=== PATIENT | female | born 1950 | race Two or more races ===

== ENCOUNTER 2024-08-23 16:53 | Emergency (ER) | payer OTHER, SELFPAY ==
[2024-08-23 16:53] VITALS: BMI 33.9
[2024-08-23 16:59] VITALS: BP 158/74; PULSE 61; RESP 20; TEMP 36.8; O2SAT 98
--- NOTE | 2024-08-23 17:01 | XR_ITS ---
Examination: PA chest single view Technique: Upright PA chest single view Exam date and time: May 24, 2024 1741 hrs. Comparison November 29, 2021 Indications: Chest pressure today Findings: Infiltrate in the left upper lobe and right base No major cardiac enlargement Mild vascular congestion Prominent osteopenia Impression: Left upper lobe and right base pneumonia
--- NOTE | 2024-08-23 17:01 | PD.EDRME ---
Rapid Medical Screening Exam RME Arrival date/time: 08/23/24 16:53 Chief Complaint: Chest Pain Vital signs: Vital Signs Temperature 98.3 F 08/23/24 16:59 Pulse Rate 61 08/23/24 16:59 Respiratory Rate 20 08/23/24 16:59 Blood Pressure 158/74 H 08/23/24 16:59 Pulse Oximetry (%) 98 08/23/24 16:59 Oxygen Delivery Method Room Air 08/23/24 16:59 RME Narrative: Chest heaviness/pressure since this afternoon
[2024-08-23 18:07] LABS: Basophils # (Auto) 0.1 Thou/mm3 (0.0-0.2); Basophils % (Auto) 1 % (0-2.5); Eosinophils # (Auto) 0.2 Thou/mm3 (0.0-0.5); Eosinophils % (Auto) 3 % (0-10); Hematocrit 36.9 % (36.0-46.0); Hemoglobin 12.4 g/dL (12.0-16.0); Immature Granulocytes % (Auto) 0 % (0-0); Immature Granulocytes Auto 0.01 Thou/mm3 (0.00-0.00); Lymphocytes # (Auto) 2.4 Thou/mm3 (1.0-4.8); Lymphocytes % (Auto) 32 % (10-50); Mean Corpuscular HGB Conc 33.6 g/dl (31.0-37.0); Mean Corpuscular Hemoglobin 28.7 pg (25.0-35.0); Mean Corpuscular Volume 85 fL (80-100); Monocytes # (Auto) 0.6 Thou/mm3 (0.0-0.8); Monocytes % (Auto) 9 % (0-12); Neutrophils % (Auto) 55 % (37-80); Nucleated Red Blood Cell % 0 /100 WBC (0); Platelet Count 312 Thou/mm3 (140-440); RDW Standard Deviation 39.1 fL (36.4-46.3); Red Blood Count 4.32 Miln/mm3 (4.00-5.20); White Blood Count 7.3 Thou/mm3 (3.6-11.0)
[2024-08-23 18:21] LABS: Alanine Aminotransferase 100 U/L (10-49); Albumin, Serum 4.8 gm/dL (3.4-4.8); Albumin/Globulin Ratio 1.8 (1.2-2.2); Alkaline Phosphatase 199 U/L (46-116); Anion Gap 6 (7-16); Aspartate Amino Transferase 154 U/L (0-34); B-Type Natriuretic Peptide 100 pg/mL (0-100); BUN/Creatinine Ratio 11 Ratio (12-20); Bilirubin,Total 0.3 mg/dL (0.3-1.2); Blood Urea Nitrogen 23 mg/dL (9-23); Calcium 10.1 mg/dL (8.3-10.6); Calcium (Corrected) 10.1 mg/dL (8.5-10.1); Chloride 95 mMol/L (98-107); Creatinine (Component) 2.1 mg/dL (0.6-1.3); Estimated Creatinine Clearance 27.3 mL/min (>60); Globulin 2.7 gm/dL (2.3-3.5); Glucose 161 mg/dL (74-106); Osmolality,Calculated 265 (275-295); Potassium 5.2 mMol/L (3.4-5.1); Sodium 129 mMol/L (136-145); Total Protein 7.5 gm/dL (5.7-8.2); Troponin I < 0.020 ng/mL (0.0-0.045); eGFR 24 See Note
[2024-08-23 18:31] VITALS: BP 114/61; PULSE 74; RESP 17; TEMP 36.7; O2SAT 95
--- NOTE | 2024-08-23 18:38 | PC.NURSE ---
Patient presents to ED with c/o mid sternal chest pain, pressure in nature with shortness of breath at rest. Patient is alert and oriented x3, ambulatory with cane assist. Patient noted chest pain start since this am about 1130. Patient placed on laboratory monitor, pulse ox and BP. No acute distress noted. Pending MD evans.
[2024-08-23 18:42] VITALS: PULSE 78
--- NOTE | 2024-08-23 20:12 | PD.EDCHEST ---
ED Chest Pain RME/HPI General Chief Complaint: Chest Pain Stated Complaint: CHEST PAIN SINCE 1130 WITH SHORTNESS OF BREATH Time Seen by Provider: 08/23/24 19:54 Arrival date/time: 08/23/24 16:53 RME / HPI RME / HPI narrative: Chest heaviness/pressure since this afternoon DR. BUNDY MAIN ED EVALUATION: 74-year-old female patient complaining of chest pressure radiating towards her back and sensation that her heart was beating very hard. She states this started around 11 AM and continued until just past 7 PM while she was in the ED. She did not take any medications nor was she given any in the ED. She does have nitroglycerin at home however she checked her blood pressure and it was in the 120s so she felt it was too low to take the nitroglycerin. She had similar symptoms a week ago that also resolved on their own after some time. However this episode lasted much longer so she came in. She sees Dr. Donovan, cardiology. Associated mild nausea, no shortness of breath. Related Data Home Medications ?Medication ?Instructions ?Recorded ?Confirmed mirabegron 50 mg tablet,extended 50 mg PO QDAY BLADDER CONTROL ##0 05/12/15 08/09/23 release 24 hr (Myrbetriq) simvastatin 20 mg tablet (Zocor) 20 mg PO QDAY High Cholesterol #0 05/12/15 08/09/23 tabs duloxetine 60 mg capsule,delayed 60 mg PO BID 11/26/17 08/09/23 release losartan 100 1 tab PO QDAY 11/26/17 08/09/23 mg-hydrochlorothiazide 12.5 mg tablet amlodipine 2.5 mg tablet 5 mg PO QDAY 08/09/23 08/09/23 aripiprazole 2 mg tablet 2 mg PO QDAY 08/09/23 08/09/23 carvedilol 12.5 mg tablet 12.5 mg PO BID 08/09/23 08/09/23 clopidogrel 75 mg tablet 75 mg PO QDAY 08/09/23 08/09/23 glipizide 5 mg tablet 5 mg PO BID 08/09/23 08/09/23 hydroxyzine HCl 25 mg tablet 25 mg PO HS PRN Anxiety 08/09/23 08/09/23 insulin glargine 100 unit/mL (3 20 unit subcut HS 08/09/23 08/09/23 mL) subcutaneous pen (Lantus Solostar U-100 Insulin) levothyroxine 175 mcg tablet 175 mcg PO QDAY 08/09/23 08/09/23 pantoprazole 40 mg tablet,delayed 40 mg PO QDAY 08/09/23 08/09/23 release Allergies Allergy/AdvReac Type Severity Reaction Status Date / Time aspirin Allergy Severe HIVES, Verified 08/23/24 16:55 SWELLING Review of Systems Review of Systems Systems Reviewed: All systems reviewed, normal except as documented Narrative Review of Systems: GEN: No fever, no chills, no weight loss EYES: No discharge, no visual changes, no pain HEENT: No ear pain, no congestion, no sore throat PULM: No shortness of breath, no cough, no congestion CV: + chest pressure, no dyspnea on exertion, no palpitations GI: + mild nausea, no vomiting, no diarrhea, no pain, no constipation : No frequency, no urgency and no dysuria MUSC/SKEL: No joint pain, + back pain SKIN: No rash PSYCH: No hallucinations, no depression HEME/LYMPH: No easy bleeding or bruising tendencies NEURO: No weakness, no headache Past Medical History Past Medical History NEUROLOGIC: Positive Neurological Disorders, Dementia, Migraine and Head Trauma; Negative Seizures CARDIAC: Positive Cardiac Disorders, Atherosclerotic Heart Disease, Hypercholesterolemia and Hypertension; Negative Congestive Heart Failure RESPIRATORY: Positive Asthma; Negative Chronic Obstructive Pulmonary Disease (COPD) GASTROINTESTINAL: Positive Gastrointestinal Disorders and Gall Bladder Disease; Negative Hepatitis or Colorectal Cancer GENITOURINARY: Positive Genitourinary Disorders; Negative Renal Disease REPRODUCTIVE: Positive Previous Pregnancies; Negative Breast Cancer, Endometriosis, Pelvic Inflammatory Disease or Uterine Prolapse MUSCULOSKELETAL: Positive Musculoskeletal Disorders, Arthritis, Scoliosis, Carpal Tunnel Syndrome (Bilateral hands), Fibromyalgia and Degenerative Joint Disease; Negative Bone Cancer ENT: Positive Cataracts and Head Trauma ENDOCRINE: Positive Endocrine Disorders, Diabetes Mellitus Type 2, Hyperthyroidism and Hypothyroidism; Negative Diabetes Mellitus Type 1 or Graves' Disease HEMATOLOGIC: Negative Blood Disorders, Anemia or Clotting Problems PSYCHO/SOCIAL: Positive Depression OTHER HISTORY: Positive Shingles, Chicken Pox, Measles and Mumps; Negative Hospitalization, Autoimmune Disease, Down Syndrome, Developmental Delay, Falls, Blood Transfusions, Blood Transfusion Reaction, Anesthesia Reactions, Organ Transplant, Chemotherapy, Radiation Therapy, Hyperbaric Therapy, MRSA, VRSA, Vancomycin-Resistant Enterococci, Clostridium Difficile, Cancer, Breast Cancer, Cervical Cancer, Colorectal Cancer, Lung Cancer or Ovarian Cancer Family History FAMILY HISTORY: Positive Family Psychiatric Problems, Family Respiratory Disorders, Family Cardiac Disorders and Family Cancer; Negative Family Gastrointestinal Problems, Family Surgery or Family Anesthesia Reaction Surgical History SURGICAL: Positive Cardiac Surgery, Angiogram, Endocrine Surgery, Thyroidectomy (Complete), Abdominal Surgery, Joint Replacement and Tubal Ligation; Negative Ear Surgery, Neurologic Surgery, Brain Shunt or Organ Transplant Social History SMOKING STATUS: Never smoker SUBSTANCE USE: does not use ED Exam Narrative Physical exam: GENERAL APPEARANCE: alert and oriented x 4, well-developed, well-nourished, no acute distress VITALS: All vitals were reviewed and the pulse ox is 98% on room air, which is normal according to my interpretation. HEENT: Normocephalic, atraumatic; pupils equal, round, reactive to light; EOMI; mucous membranes pink, moist; oropharynx clear NECK: Supple LUNGS: CTABL; no wheezes, no rales, no rhonchi HEART: Regular rate, regular rhythm; normal S1, S2; no murmurs ABDOMEN: non distended; normal BS; soft, no tenderness, no guarding, no rebound; no masses, no organomegaly, no hernia BACK: no CVA tenderness EXTREMITIES: atraumatic; no edema NEUROLOGIC: awake; alert and oriented x4; cranial nerves II-XII grossly intact; no focal sensory or motor deficits PSYCHIATRIC: appropriate mood and affect SKIN: warm, dry, normal color; no rashes Course Course Course Narrative: Discussed consideration of Holter monitor. Patient states she has had this done twice in the past. Quality Measures none Orders Category Date Time Status EKG (ED ONLY) *Do not use* NOW Care 08/23/24 16:56 Completed CXR [XR chest 1V] Stat Exams 08/23/24 17:01 Completed EKG (ED Only) Stat Exams 08/23/24 16:56 Ordered BNP [B-Type Natriuretic Peptide] Stat Lab 08/23/24 17:39 Completed CBC Stat Lab 08/23/24 17:39 Completed CMP [Comprehensive Metabolic Panel] Stat Lab 08/23/24 17:39 Completed Troponin I Stat Lab 08/23/24 17:39 Completed Troponin I Stat Lab 08/23/24 21:33 Completed Calcium Gluconate 10% Inj Med 08/23/24 19:56 Discontinued 1 gm IV X1 ONE Sod Polystyrene Sulfon Susp [Kayexalate Susp] Med 08/23/24 19:56 Discontinued 30 gm PO X1 ONE Sodium Chloride 0.9% 1000 ml [Ns] 1,000 ml Med 08/23/24 19:56 Discontinued IV 999 mls/hr Reevaluation(s) Reevaluation #1: Patient remains clinically stable throughout the emergency department visit. Re-assessment at the time of disposition demonstrates that the patient is in no acute distress. We reviewed all the results, analysis, and treatment plans. Patient is amenable to discharge. Strict return precautions were outlined. Patient was discharged in stable condition. Time: 22:30 Vital Signs Vital signs: Vital Signs Temperature 98.3 F 08/23/24 16:59 Pulse Rate 61 08/23/24 16:59 Respiratory Rate 20 08/23/24 16:59 Blood Pressure 158/74 H 08/23/24 16:59 Pulse Oximetry (%) 98 08/23/24 16:59 Oxygen Delivery Method Room Air 08/23/24 16:59 Chest Pain MDM Narrative MDM Narrative:: Marietta Hogan am scribing for and in the presence of Dr. Bundy. Patient data External records reviewed:: [facility] previous records (Reviewed last ED visit dated 04/09/23, discharged with the following: Asthma with exacerbation.) Clinical information provided by:: patient Social determinants that could affect healthcare access:: none Patient has the following chronic illnesses:: Chronic hypertension, history of diabetes mellitus, history of hyperlipidemia, history of cardiac dysrhythmia, history of hypothyroidism, history of angina pectoris and previous cardiac catheterization, coronary angiography done on 06/27/2020 showed mild coronary artery disease with 20% to 30% stenosis of the left anterior descending coronary artery as well as right coronary artery. How is presenting disease/condition affected by chronic disease/condition?: exacerbated by Evaluation data The following diagnostics were reviewed and interpreted by me:: lab results, radiology exam(s) and EKG tracing(s) Lab and/or radiology exams considered but not ordered:: none Interpretation Summary: Procedure(s): XR chest 1V Accession Number(s): [id number] cc: Marine Astudillo NP; Sinceer Grey MD; Sergey Callaway PA-C~ Examination: PA chest single view Technique: Upright PA chest single view Exam date and time: May 24, 2024 1741 hrs. Comparison November 29, 2021 Indications: Chest pressure today Findings: Infiltrate in the left upper lobe and right base No major cardiac enlargement Mild vascular congestion Prominent osteopenia Impression: Left upper lobe and right base pneumonia Dictated By: Sincere Grey MD Medications / Prescriptions Medications or Prescriptions considered but not ordered:: none Medication administrations:: Medication Administration History Discontinued Medications Calcium Gluconate (Calcium Gluconate 10% Inj 1 Gm/10 Ml Vial) 1 gm IV X1 ONE Stop: 08/23/24 19:57 Last Admin: 08/23/24 20:41 Dose: 1 gm Documented By: JADEN Sodium Chloride (Ns) 1,000 mls @ 999 mls/hr IV .Q1H1M ONE Stop: 08/23/24 20:56 Last Infusion: 08/23/24 22:09 Dose: Infused Documented By: Admin: 08/23/24 20:41 Dose: 999 mls/hr Documented By: JADEN Sodium Polystyrene Sulfonate (Sod Polystyrene Sulfon Susp 15 Gm/60 Ml Btl) 30 gm PO X1 ONE Stop: 08/23/24 19:57 Last Admin: 08/23/24 20:41 Dose: 30 gm Documented By: JADEN see above Consultations Consultation(s) initiated? (list below): No Diagnosis Chest Pain Differential Diagnosis: pneumothorax, atypical chest pain, costochondritis, chest pain and other (pneumonia, PE) Most likely diagnosis given after review of the tests above:: Hyperkalemia Hyponatremia Chest pressure Admission Indicated Admission indicated?: not indicated Admission Request Was there a request for admission?: No Disposition Plan Disposition Plan: Discharge Discharge Attestation Discharge Attestation: The patient and all family members were given an opportunity to ask questions and understood the discharge instructions. Discharge instructions specifically effects, indications for sooner follow up or return to the emergency department, and the expected course of current diagnosis. Patient condition: Stable Discharge Plan Plan Patient Disposition: HOME (Self Care) Prescriptions/Referrals Prescriptions/Med Rec: No Action simvastatin [Zocor] 20 MG tablet 20 mg PO QDAY Qty: 0 Myrbetriq 50 MG tablet extended release 24 hr 50 mg PO QDAY Qty: 0 duloxetine 60 mg Capsule,Delayed Release(Dr/Ec) 60 mg PO BID losartan-hydrochlorothiazide 100-12.5 mg Tablet 1 tab PO QDAY levothyroxine 175 mcg tablet 175 mcg PO QDAY carvedilol 12.5 mg tablet 12.5 mg PO BID amlodipine 2.5 mg tablet 5 mg PO QDAY clopidogrel 75 mg tablet 75 mg PO QDAY pantoprazole 40 mg tablet,delayed release (DR/EC) 40 mg PO QDAY hydroxyzine HCl 25 mg tablet 25 mg PO HS PRN (Reason: Anxiety) Patient Comments: TAKE 1 TABLET BY MOUTH AT BEDTIME NEEDED FOR 90 DAYS glipizide 5 mg tablet 5 mg PO BID Patient Comments: TAKE 1 TABLET BY MOUTH TWICE A DAY aripiprazole 2 mg tablet 2 mg PO QDAY insulin glargine [Lantus Solostar U-100 Insulin] 100 unit/mL (3 mL) insulin pen 20 unit SUBCUT HS Referrals: Marine Astudillo, [employer] ACCOUNT DIRECTOR [Primary Care Provider] - In 1 week Problem List Clinical Impression: Hyperkalemia, Hyponatremia, Chest pressure Patient/Caregiver Discharge Instructions Education Materials: Hyperkalemia Dc, Hyponatremia Dc, ED Chest Pain, Uncertain Cause Print Language: [place] Stand Alone Forms: [employer] Award Info., Patient Portal Info Letter
[2024-08-23] MEDS: SODIUM CHLORIDE 0.9% 1000 ML 1,000 ML 999 ML IV (20:41)
[2024-08-23] MEDS: CALCIUM GLUCONATE 10% INJ 1 GM/10 ML VIAL IV (20:41)
[2024-08-23] MEDS: SOD POLYSTYRENE SULFON SUSP 15 GM/60 ML BTL 30 GM PO (20:41)
--- NOTE | 2024-08-23 21:08 | PC.NURSE ---
purwick and brief in place. assisted pt with repositioning
[2024-08-23 22:25] LABS: Troponin I < 0.020 ng/mL (0.0-0.045)
[2024-08-23 22:30] VITALS: BP 123/65; PULSE 89; RESP 19; O2SAT 98
== END 2024-08-23 22:50 | disposition home or self-care (01) ==
PROVIDERS: Physician Assistant; Emergency Provider Emergency Medicine; PCP Nurse Practitioner Family
DX: J18.9 Pneumonia, unspecified organism (principal); E87.5 Hyperkalemia; E87.1 Hypo-osmolality and hyponatremia; I44.39 Other atrioventricular block
CPT/HCPCS: 36415; 71045; 80053; 83880; 84484; 85025; 93005; 96360; 99284; J0612; J7030; A9270

== ENCOUNTER 2024-08-24 00:23 | Emergency (ER) | payer OTHER, SELFPAY ==
[2024-08-24 00:24] VITALS: BMI 33.9
[2024-08-24 00:55] VITALS: BP 204/109; BP 204/118; PULSE 109; RESP 19; TEMP 36.7; O2SAT 99
--- NOTE | 2024-08-24 00:59 | XR_ITS ---
Examination: CT abdomen and pelvis without contrast. Coronal 3-D reconstructions. Sagittal 2-D reconstructions. Date and time of exam:August 24, 2024 0112 hrs. Indications: Acute urinary retention today, unable to urinate CTDI: vol (mGy): 12.51 DLP: (mGycm): 738 Technique: Axial images of the abdomen have been obtained, 3 mm slice thickness Intravenous contrast material has not been administered. Low dose protocols were performed. One or more of the following dose reduction techniques were used; automated exposure control, adjustment of the mA and/or KV according to patient size, use of iterative reconstruction technique. Findings: No focal liver or splenic lesions Gallbladder not visualized No pancreatic mass Mild left mild to moderate right hydronephrosis Abdominal aortic calcification no aneurysmal dilatation No bowel obstruction Distended urinary bladder No pelvic mass Moderate osteopenia Moderate to advanced diffuse lumbar degenerative disc disease with severe spinal stenosis L4-L5, partly related to grade 1-2 anterolisthesis L4 on L5 Impression: Prominently distended urinary bladder with hydronephrosis as above, consider neurogenic bladder Severe spinal stenosis L4-L5, consider MRI follow-up
--- NOTE | 2024-08-24 01:00 | PD.EDRME ---
Rapid Medical Screening Exam RME Arrival date/time: 08/24/24 00:23 74-year-old female presents emergency department complaining of lower abdominal pain and acute urinary retention. Chief Complaint: Urogenital-Female Time Seen by Provider: 08/24/24 00:57 Vital signs: Vital Signs Temperature 98.0 F 08/24/24 00:55 Pulse Rate 109 H 08/24/24 00:55 Respiratory Rate 19 08/24/24 00:55 Blood Pressure 204/109 H 08/24/24 00:55 Pulse Oximetry (%) 99 08/24/24 00:55 Oxygen Delivery Method Room Air 08/24/24 00:55 Vital signs reviewed by provider: Yes
--- NOTE | 2024-08-24 02:05 | PRELIM_ITS ---
CT scan of the abdomen and pelvis without intravenous contrast (axial sections with sagittal and nigel nal reformats) August 24, 2024 0112 hours Clinical History: Acute urinary retention Comparison: CT of May 06, 2020.Findings:The lung bases are clear.The liver, pancreas, spleen and adrenals are unr emarkable on this noncontrast study.S/p cholecystectomy.No evidence of bowel obstruction. No evidenc e of appendicitis. There is no mesenteric or retroperitoneal adenopathy.Very distended urinary bladde r associated with bilateral moderate hydroureteronephrosis. No kidney or ureteral stones.There is no free fluid or free air.Degenerative changes of the imaged portions of the spine. No acute fractures. Chronic multilevel disc disease. Mild anterolisthesis of L4.S/p posterior laminectomy of L5.Spinal canal stenosis at L4-L5 measuring 0.5 cm.The uterus and ovaries are within normal limits.Vascular ca lcifications.Impression:Spinal canal stenosis at L4-L5 measuring 0.5 cm. Consider correlation with M RI to assess for cauda equina compression.Very distended urinary bladder associated with bilateral mo derate hydroureteronephrosis. Consider neurologic bladder. Report Electronically Signed By: Barber ulloa 08/24/2024 2:04:42 AM [EST]
--- NOTE | 2024-08-24 04:36 | EDNOTE_ITS ---
ED Female Urogenital RME/HPI General Chief complaint: Urogenital-Female Stated complaint: UNABLE TO URINATE Time Seen by Provider: 08/24/24 00:57 Source: patient and family Arrival date/time: 08/24/24 00:23 Mode of arrival: ambulatory Limitations: no limitations RME / HPI RME / HPI Narrative: 08/24/24 00:23 74-year-old female presents emergency department complaining of lower abdominal pain and acute urinary retention. DR BUNDY MAIN ED EVALUATION: 74-year-old female patient who presents to the emergency department via private auto complaining of lower abdominal pain and acute urinary retention. Related Data Home Medications ?Medication ?Instructions ?Recorded ?Confirmed mirabegron 50 mg tablet,extended 50 mg PO QDAY BLADDER CONTROL ##0 05/12/15 08/09/23 release 24 hr (Myrbetriq) simvastatin 20 mg tablet (Zocor) 20 mg PO QDAY High Cholesterol #0 05/12/15 08/09/23 tabs duloxetine 60 mg capsule,delayed 60 mg PO BID 11/26/17 08/09/23 release losartan 100 1 tab PO QDAY 11/26/17 08/09/23 mg-hydrochlorothiazide 12.5 mg tablet amlodipine 2.5 mg tablet 5 mg PO QDAY 08/09/23 08/09/23 aripiprazole 2 mg tablet 2 mg PO QDAY 08/09/23 08/09/23 carvedilol 12.5 mg tablet 12.5 mg PO BID 08/09/23 08/09/23 clopidogrel 75 mg tablet 75 mg PO QDAY 08/09/23 08/09/23 glipizide 5 mg tablet 5 mg PO BID 08/09/23 08/09/23 hydroxyzine HCl 25 mg tablet 25 mg PO HS PRN Anxiety 08/09/23 08/09/23 insulin glargine 100 unit/mL (3 20 unit subcut HS 08/09/23 08/09/23 mL) subcutaneous pen (Lantus Solostar U-100 Insulin) levothyroxine 175 mcg tablet 175 mcg PO QDAY 08/09/23 08/09/23 pantoprazole 40 mg tablet,delayed 40 mg PO QDAY 12/01/23 12/01/23 release Allergies Allergy/AdvReac Type Severity Reaction Status Date / Time aspirin Allergy Severe HIVES, Verified 08/23/24 16:55 SWELLING Review of Systems Review of Systems Systems Reviewed: All systems reviewed, normal except as documented Past Medical History Past Medical History NEUROLOGIC: Positive Neurological Disorders, Dementia, Migraine and Head Trauma; Negative Seizures CARDIAC: Positive Cardiac Disorders, Atherosclerotic Heart Disease, Hypercholesterolemia and Hypertension; Negative Congestive Heart Failure RESPIRATORY: Positive Asthma; Negative Chronic Obstructive Pulmonary Disease (COPD) GASTROINTESTINAL: Positive Gastrointestinal Disorders and Gall Bladder Disease; Negative Hepatitis or Colorectal Cancer GENITOURINARY: Positive Genitourinary Disorders; Negative Renal Disease REPRODUCTIVE: Positive Previous Pregnancies; Negative Breast Cancer, Endometriosis, Pelvic Inflammatory Disease or Uterine Prolapse MUSCULOSKELETAL: Positive Musculoskeletal Disorders, Arthritis, Scoliosis, Car pal Tunnel Syndrome (Bilateral hands), Fibromyalgia and Degenerative Joint Disease; Negative Bone Cancer ENT: Positive Cataracts and Head Trauma ENDOCRINE: Positive Endocrine Disorders, Diabetes Mellitus Type 2, Hyperthyroidism and Hypothyroidism; Negative Diabetes Mellitus Type 1 or Graves' Disease HEMATOLOGIC: Negative Blood Disorders, Anemia or Clotting Problems PSYCHO/SOCIAL: Positive Depression OTHER HISTORY: Positive Shingles, Chicken Pox, Measles and Mumps; Negative Hospitalization, Autoimmune Disease, Down Syndrome, Developmental Delay, Falls, Blood Transfusions, Blood Transfusion Reaction, Anesthesia Reactions, Organ Transplant, Chemotherapy, Radiation Therapy, Hyperbaric Therapy, MRSA, VRSA, Vancomycin-Resistant Enterococci, Clostridium Difficile, Cancer, Breast Cancer, Cervical Cancer, Colorectal Cancer, Lung Cancer or Ovarian Cancer Family History FAMILY HISTORY: Positive Family Psychiatric Problems, Family Respiratory Disorders, Family Cardiac Disorders and Family Cancer; Negative Family Gastrointestinal Problems, Family Surgery or Family Anesthesia Reaction Surgical History SURGICAL: Positive Cardiac Surgery, Angiogram, Endocrine Surgery, Thyroidectomy (Complete), Abdominal Surgery, Joint Replacement and Tubal Ligation; Negative Ear Surgery, Neurologic Surgery, Brain Shunt or Organ Transplant Social History SMOKING STATUS: Never smoker SUBSTANCE USE: does not use ED Exam Narrative Physical exam: GENERAL APPEARANCE: alert and oriented x 4, well-developed, well-nourished, no acute distress VITALS: All vitals were reviewed and the pulse ox is 99% on room air, which is normal according to my interpretation. HEENT: Normocephalic, atraumatic; pupils equal, round, reactive to light; EOMI; mucous membranes pink, moist; oropharynx clear NECK: Supple LUNGS: CTABL; no wheezes, no rales, no rhonchi HEART: Regular rate, regular rhythm; normal S1, S2; no murmurs ABDOMEN: non distended; normal BS; soft, no tenderness, no guarding, no rebound; no masses, no organomegaly, no hernia BACK: no CVA tenderness EXTREMITIES: atraumatic; no edema NEUROLOGIC: awake; alert and oriented x4; cranial nerves II-XII grossly intact; no focal sensory or motor deficits PSYCHIATRIC: appropriate mood and affect SKIN: warm, dry, normal color; no rashes General Limitations: Present no limitations Course Quality Measures none Orders Category Date Time Status [facility] [place] Routine Care 08/24/24 00:59 Ordered [facility] to [place] Routine Care 08/24/24 01:[address] abdomen pelvis wo con Stat Exams 08/24/24 00:59 Taken Urinalysis, C/S if Indicated Stat Lab 08/24/24 00:59 Completed Vital Signs Vital signs: Vital Signs Temperature 98.0 F 08/24/24 00:55 Pulse Rate 109 H 08/24/24 00:55 Respiratory Rate 19 08/24/24 00:55 Blood Pressure 204/109 H 08/24/24 00:55 Pulse Oximetry (%) 99 08/24/24 00:55 Oxygen Delivery Method Room Air 08/24/24 00:55 Urogenital - Female MDM Narrative MDM Narrative:: Scribe Attestation: Susan Hogan, aryan scribing for and in the presence of Dr. Bundy. Provider Notation: Although this document has been carefully reviewed, there may still be some phonetic and other typographical errors. These errors are purely grammatical due to imperfections in the software program and should not be construed in any way to compromise the substance of the patient's medical care during this visit. Patient data External records reviewed:: [facility] previous records Clinical information provided by:: patient Social determinants that could affect healthcare access:: none Patient has the following chronic illnesses:: Essential Hypertension, Hyperlipidemia, asthma, urinary incontinence s/p sling procedure, dizziness, MDD, CAD, Hypothyroidism, Asthma, and Diabetes Mellitus Type II ([id number]) How is presenting disease/condition affected by chronic disease/condition?: uneffected by Evaluation data The following diagnostics were reviewed and interpreted by me:: lab results and radiology exam(s) Lab and/or radiology exams considered but not ordered:: n/a Interpretation Summary: I personally reviewed the radiology data and agree with the radiologist's interpretation. CT scan of the abdomen and pelvis without intravenous contrast (axial sections with sagittal and coronal reformats) August 24, 2024 0112 hours Clinical History: Acute urinary retention Comparison: CT of May 06, 2020. Findings: The lung bases are clear. The liver, pancreas, spleen and adrenals are unremarkable on this noncontrast study. S/p cholecystectomy. No evidence of bowel obstruction. No evidence of appendicitis. There is no mesenteric or retroperitoneal adenopathy. Very distended urinary bladder associated with bilateral moderate hydroureteronephrosis. No kidney or ureteral stones. There is no free fluid or free air. Degenerative changes of the imaged portions of the spine. No acute fractures. Chronic multilevel disc disease. Mild anterolisthesis of L4. S/p posterior laminectomy of L5. Spinal canal stenosis at L4-L5 measuring 0.5 cm. The uterus and ovaries are within normal limits. Vascular calcifications. Impression: Spinal canal stenosis at L4-L5 measuring 0.5 cm. Consider correlation with MRI to assess for cauda equina compression. Very distended urinary bladder associated with bilateral moderate hydroureteron ephrosis. Consider neurologic bladder. Report Electronically Signed By: Barber Helton 08/24/2024 2:04:42 AM [EST] Medications / Prescriptions Medications or Prescriptions considered but not ordered:: n/a Medication administrations:: n/a Consultations Consultation(s) initiated? (list below): No Diagnosis Urogenital Female Differential Diagnosis: urinary tract infection, bacterial vaginosis, ovarian cyst and cystitis Most likely diagnosis given after review of the tests above:: Acute urinary retention Admission Indicated Admission indicated?: not indicated Admission Request Was there a request for admission?: No Disposition Plan Disposition Plan: Discharge Discharge Attestation Discharge Attestation: The patient and all family members were given an opportunity to ask questions and understood the discharge instructions. Discharge instructions specifically effects, indications for sooner follow up or return to the emergency department, and the expected course of current diagnosis. Patient condition: Stable Discharge Plan Plan Patient Disposition: HOME (Self Care) Prescriptions/Referrals Prescriptions/Med Rec: No Action simvastatin [Zocor] 20 MG tablet 20 mg PO QDAY Qty: 0 Myrbetriq 50 MG tablet extended release 24 hr 50 mg PO QDAY Qty: 0 duloxetine 60 mg Capsule,Delayed Release(Dr/Ec) 60 mg PO BID losartan-hydrochlorothiazide 100-12.5 mg Tablet 1 tab PO QDAY levothyroxine 175 mcg tablet 175 mcg PO QDAY carvedilol 12.5 mg tablet 12.5 mg PO BID amlodipine 2.5 mg tablet 5 mg PO QDAY clopidogrel 75 mg tablet 75 mg PO QDAY pantoprazole 40 mg tablet,delayed release (DR/EC) 40 mg PO QDAY hydroxyzine HCl 25 mg tablet 25 mg PO HS PRN (Reason: Anxiety) Patient Comments: TAKE 1 TABLET BY MOUTH AT BEDTIME NEEDED FOR 90 DAYS glipizide 5 mg tablet 5 mg PO BID Patient Comments: TAKE 1 TABLET BY MOUTH TWICE A DAY aripiprazole 2 mg tablet 2 mg PO QDAY insulin glargine [Lantus Solostar U-100 Insulin] 100 unit/mL (3 mL) insulin pen 20 unit SUBCUT HS Referrals: Marine Astudillo, [employer]APE[employer] SALES SPECIALIST [Primary Care Provider] - In 1 week Problem List Clinical Impression: Acute urinary retention Patient/Caregiver Discharge Instructions Education Materials: ED [facility] Catheter, Care, ED Urinary Retention, Female Print Language: Indonesian Stand Alone Forms: [employer] Award Info., Patient Portal Info Letter
[2024-08-24 05:12] LABS: Bilirubin,Urine Negative (Negative); Blood,Urine 1+ (Negative); Clarity,Urine Clear (Clear/Hazy); Collection Type, Urine Clean Catch; Color,Urine Lt-Yellow (Lt Yel-Yel); Culture Indicated,Urine Not Indicated; Glucose, Urine Negative (Negative); Ketones,Urine Negative (Negative); Leukocyte Esterase,Urine Negative (Negative); Nitrite,Urine Negative (Negative); Protein,Urine Negative (Neg - Trace); RBC,Urine 5 /hpf (0-3); Specific Gravity,Urine 1.009 (1.001-1.035); Squamous Epithelial Cell,Urine < 1 /hpf (0-5); Urobilinogen,Urine Negative mg/dL (0.0-1.0); WBC,Urine 0 /hpf (0-5)
[2024-08-24 05:46] VITALS: BP 175/79; RESP 17; TEMP 36.8
== END 2024-08-24 05:45 | disposition home or self-care (01) ==
PROVIDERS: Emergency Provider Emergency Medicine; PCP Nurse Practitioner Family
DX: N13.30 Unspecified hydronephrosis (principal); N32.89 Other specified disorders of bladder; M48.061 Spinal stenosis, lumbar region without neurogenic claudication
CPT/HCPCS: 51702; 74176; 81001; 99284

== ENCOUNTER → 2024-08-27 | Outpatient (CLI) | payer OTHER, MEDICAID, SELFPAY ==
[2024-08-27 09:55] LABS: Basophils # (Auto) 0.1 Thou/mm3 (0.0-0.2); Basophils % (Auto) 1 % (0-2.5); Eosinophils # (Auto) 0.4 Thou/mm3 (0.0-0.5); Eosinophils % (Auto) 5 % (0-10); Hematocrit 36.6 % (36.0-46.0); Hemoglobin 12.2 g/dL (12.0-16.0); Immature Granulocytes % (Auto) 0 % (0-0); Immature Granulocytes Auto 0.02 Thou/mm3 (0.00-0.00); Lymphocytes # (Auto) 2.4 Thou/mm3 (1.0-4.8); Lymphocytes % (Auto) 32 % (10-50); Mean Corpuscular HGB Conc 33.3 g/dl (31.0-37.0); Mean Corpuscular Hemoglobin 28.8 pg (25.0-35.0); Mean Corpuscular Volume 86 fL (80-100); Monocytes # (Auto) 0.6 Thou/mm3 (0.0-0.8); Monocytes % (Auto) 8 % (0-12); Neutrophils % (Auto) 54 % (37-80); Nucleated Red Blood Cell % 0 /100 WBC (0); Platelet Count 324 Thou/mm3 (140-440); RDW Standard Deviation 40.3 fL (36.4-46.3); Red Blood Count 4.24 Miln/mm3 (4.00-5.20); White Blood Count 7.5 Thou/mm3 (3.6-11.0)
[2024-08-27 10:10] LABS: Alanine Aminotransferase 31 U/L (10-49); Albumin, Serum 4.4 gm/dL (3.4-4.8); Albumin/Globulin Ratio 1.6 (1.2-2.2); Alkaline Phosphatase 127 U/L (46-116); Anion Gap 9 (7-16); Aspartate Amino Transferase 20 U/L (0-34); BUN/Creatinine Ratio 24 Ratio (12-20); Bilirubin,Total 0.6 mg/dL (0.3-1.2); Blood Urea Nitrogen 19 mg/dL (9-23); Calcium 10.6 mg/dL (8.3-10.6); Calcium (Corrected) 10.6 mg/dL (8.5-10.1); Carbon Dioxide 32.4 mMol/L (20.0-31.0); Chloride 98 mMol/L (98-107); Creatinine (Component) 0.8 mg/dL (0.6-1.3); Globulin 2.7 gm/dL (2.3-3.5); Glucose 106 mg/dL (74-106); Osmolality,Calculated 279 (275-295); Potassium 3.9 mMol/L (3.4-5.1); Sodium 139 mMol/L (136-145); Total Protein 7.1 gm/dL (5.7-8.2); eGFR > 60 See Note
== END | disposition home or self-care (01) ==
LOC: COPL 08:06
PROVIDERS: PCP Family Medicine; Referring Provider Nurse Practitioner Family; Visit Provider Nurse Practitioner Family
DX: J15.9 Unspecified bacterial pneumonia (principal); E87.5 Hyperkalemia; E87.1 Hypo-osmolality and hyponatremia; R74.01 Elevation of levels of liver transaminase levels
CPT/HCPCS: 36415; 80053; 85025

== ENCOUNTER → 2025-01-13 | Outpatient (CLI) | payer OTHER, MEDICAID, SELFPAY ==
--- NOTE | 2025-01-13 08:15 | XR_ITS ---
Examination: PA lateral chest 2 views TECHNIQUE: Upright PA lateral chest 2 views Exam date and time: January 13, 2025 0841 hours INDICATIONS: Coughing several years. FINDINGS: Normal heart size The lungs are clear. Prominent osteopenia IMPRESSION: No active disease
--- NOTE | 2025-01-13 08:15 | XR_ITS ---
Examination: Cervical spine 3 views Technique one AP lateral coned AP odontoid cervical spine 3 views Exam date and time: January 13, 2025 0844 hours INDICATIONS: Neck pain 10 years. FINDINGS: Adequate alignment cervical vertebral bodies. No cervical fracture. Intact odontoid. Moderate to advanced degenerative disc disease C4-C5, C5-C6, C6-C7 IMPRESSION: Moderate to advanced degenerative disc disease C4-C5, C5-C6, C6-C7
[2025-01-13 09:52] LABS: Basophils # (Auto) 0.1 Thou/mm3 (0.0-0.2); Basophils % (Auto) 1 % (0-2.5); Eosinophils # (Auto) 0.3 Thou/mm3 (0.0-0.5); Eosinophils % (Auto) 3 % (0-10); Hematocrit 38.7 % (36.0-46.0); Hemoglobin 12.7 g/dL (12.0-16.0); Immature Granulocytes % (Auto) 0 % (0-0); Immature Granulocytes Auto 0.02 Thou/mm3 (0.00-0.00); Lymphocytes # (Auto) 2.2 Thou/mm3 (1.0-4.8); Lymphocytes % (Auto) 26 % (10-50); Mean Corpuscular HGB Conc 32.8 g/dl (31.0-37.0); Mean Corpuscular Hemoglobin 28.5 pg (25.0-35.0); Mean Corpuscular Volume 87 fL (80-100); Monocytes # (Auto) 0.7 Thou/mm3 (0.0-0.8); Monocytes % (Auto) 9 % (0-12); Neutrophils # (Auto) 5.1 Thou/mm3 (1.8-7.7); Neutrophils % (Auto) 61 % (37-80); Nucleated Red Blood Cell % 0 /100 WBC (0); Platelet Count 332 Thou/mm3 (140-440); RDW Standard Deviation 42.3 fL (36.4-46.3); Red Blood Count 4.45 Miln/mm3 (4.00-5.20); White Blood Count 8.5 Thou/mm3 (3.6-11.0)
[2025-01-13 10:00] LABS: Glucose Estimated Average 131 mg/dL (80-131); Hemoglobin A1C 6.2 % Hgb (4.8-6.0)
[2025-01-13 10:18] LABS: Carbon Dioxide 30.2 mMol/L (20.0-31.0); Chloride 99 mMol/L (98-107); Potassium 4.2 mMol/L (3.4-5.1); Sodium 138 mMol/L (136-145)
[2025-01-13 10:19] LABS: Alanine Aminotransferase 11 U/L (10-49); Albumin, Serum 4.9 gm/dL (3.4-4.8); Albumin/Globulin Ratio 1.8 (1.2-2.2); Alkaline Phosphatase 113 U/L (46-116); Anion Gap 9 (7-16); Aspartate Amino Transferase 19 U/L (0-34); BUN/Creatinine Ratio 20 Ratio (12-20); Bilirubin,Direct 0.2 mg/dL (0.0-0.3); Bilirubin,Total 0.8 mg/dL (0.3-1.2); Blood Urea Nitrogen 20 mg/dL (9-23); Calcium 9.9 mg/dL (8.3-10.6); Calcium (Corrected) 9.9 mg/dL (8.5-10.1); Cardiac Risk Estimate 2.4 RATIO (3.7-5.6); Cholesterol 180 mg/dL (132-200); Free T4 (Free Thyroxine) 1.49 ng/dL (0.89-1.76); Globulin 2.7 gm/dL (2.3-3.5); Glucose 89 mg/dL (74-106); HDL Cholesterol 74 mg/dL (40-60); LDL Cholesterol,Calculated 85 mg/dL (0-130); Osmolality,Calculated 277 (275-295); Total Protein 7.6 gm/dL (5.7-8.2); Triglycerides 103 mg/dL (30-150); eGFR 59 See Note
== END | disposition home or self-care (01) ==
LOC: CDIM 07:58 → COPL 08:57
PROVIDERS: Internal Medicine Cardiovascular Disease; PCP Family Medicine; Referring Provider Nurse Practitioner Family; Visit Provider Radiology Diagnostic Radiology
DX: M50.323 Other cervical disc degeneration at C6-C7 level (principal); J15.9 Unspecified bacterial pneumonia; Z00.00 Encounter for general adult medical examination without abnormal findings; I10 Essential (primary) hypertension; E78.5 Hyperlipidemia, unspecified; E03.9 Hypothyroidism, unspecified; R73.09 Other abnormal glucose; Z71.3 Dietary counseling and surveillance
CPT/HCPCS: 36415; 71046; 72040; 80053; 80061; 82043; 82248; 82570; 83036; 84439; 84443; 85025

== ENCOUNTER 2025-02-15 10:30 | Day surgery (SDC) | payer OTHER, MEDICAID, SELFPAY ==
[2025-02-12 14:41] VITALS: BMI 34.1
[2025-02-15] VITALS (16 sets, daily range): BP systolic 102–162; BP diastolic 52–86; PULSE 73–90; RESP 10–20; TEMP 36.6–36.8; O2SAT 90–98; BMI 32.5
[2025-02-15] MEDS: DiphenhydrAMINE INJ 50 MG/ML VIAL 25 MG IVP (11:48)
[2025-02-15] MEDS: fentaNYL CIT INJ 50 mCg/ML AMP 2ML (ASD USE ONLY) IVP (12:33)
[2025-02-15] MEDS: MIDAZOLAM INJ 1 MG/ML VIAL 2 ML (ASD USE ONLY) 2 MG IVP (12:33)
[2025-02-15] MEDS: SODIUM CHLORIDE 0.9% 500 ML 500 ML 20 ML IV (12:33)
[2025-02-15] MEDS: BENZOCAINE 20% (Hurricaine) SPRAY 1 DOSE TOP (12:36)
== END 2025-02-15 13:46 | disposition home or self-care (01) ==
PROVIDERS: PCP Nurse Practitioner Family; Referring Provider Specialist; Visit Provider Specialist
PROC: 0DBE8ZX Excision of Large Intestine, Via Natural or Artificial Opening Endoscopic, Diagnostic (ICD-10-PCS; CPT 45380; principal; 2025-02-15 11:15)
PROC: (CPT 43239; 2025-02-15 11:15)
DX: D12.3 Benign neoplasm of transverse colon (principal); D12.5 Benign neoplasm of sigmoid colon; K64.9 Unspecified hemorrhoids; K57.30 Diverticulosis of large intestine without perforation or abscess without bleeding
CPT/HCPCS: 45385; A4649; C1769; J1200; J2250; J3010; J7040; A9270

== ENCOUNTER 2025-03-08 13:34 | Emergency (ER) | payer OTHER, MEDICAID, SELFPAY ==
--- NOTE | 2025-03-08 13:40 | EKG_ITS ---
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: : 1950 Requested By: Yaneth Stovall Order Number: [id number] Reading MD: Yaneth Stovall Measurements Intervals [place] Rate: 44 P: [place]: QRS: -26 QRSD: 103 T: 63 QT: 476 QTc: 408 Interpretive Statements SUPRAVENTRICULAR BRADYCARDIA BORDERLINE LEFT AXIS DEVIATION [QRS AXIS < -20] MODERATE VOLTAGE CRITERIA FOR LVH, CONSIDER NORMAL VARIANT [MEETS CRITERIA IN ONE OF: R(aVL), S(V1), R(V5), R(V5/V6)+S(V1)] ABNORMAL RHYTHM ECG Compared to ECG 11/25/2021 11:56:07 Sinus rhythm no longer present Sinus arrhythmia no longer present First degree AV block no longer present Left anterior fascicular block no longer present /store/S0/[id number].pdf
[2025-03-08 13:44] VITALS: BP 148/64; PULSE 83; RESP 18; TEMP 36.8; O2SAT 95; BMI 33.7
--- NOTE | 2025-03-08 14:30 | PD.EDRME ---
Rapid Medical Screening Exam RME Arrival date/time: 03/08/25 13:34 Chief Complaint: Chest Pain Time Seen by Provider: 03/08/25 14:30 Vital signs: Vital Signs Temperature 98.3 F 03/08/25 13:44 Pulse Rate 83 03/08/25 13:44 Respiratory Rate 18 03/08/25 13:44 Blood Pressure 148/64 H 03/08/25 13:44 Pulse Oximetry (%) 95 03/08/25 13:44 Oxygen Delivery Method Room Air 03/08/25 13:44 Pulse ox room air 95% Vital signs reviewed by provider: Yes RME Narrative: Patient complains of chest pain with shortness of breath and a sensation of a vice sitting on her chest. Began 1 week ago.
--- NOTE | 2025-03-08 14:32 | XR_ITS ---
Examination: PA lateral chest 2 views TECHNIQUE: Upright PA lateral chest 2 views Date and time: March 08, 2025 1441 hours Comparison January 13, 2025 INDICATIONS: Chest pain post endoscopy one week ago. FINDINGS: Accentuation bronchovascular markings. Normal heart size Prominent osteopenia IMPRESSION: Bronchitis pattern
[2025-03-08 15:07] LABS: Basophils # (Auto) 0.1 Thou/mm3 (0.0-0.2); Basophils % (Auto) 1 % (0-2.5); Eosinophils # (Auto) 0.4 Thou/mm3 (0.0-0.5); Eosinophils % (Auto) 4 % (0-10); Hematocrit 35.5 % (36.0-46.0); Hemoglobin 12.0 g/dL (12.0-16.0); Immature Granulocytes Auto 0.03 Thou/mm3 (0.00-0.00); Lymphocytes # (Auto) 3.5 Thou/mm3 (1.0-4.8); Lymphocytes % (Auto) 33 % (10-50); Mean Corpuscular HGB Conc 33.8 g/dl (31.0-37.0); Mean Corpuscular Hemoglobin 28.9 pg (25.0-35.0); Mean Corpuscular Volume 86 fL (80-100); Monocytes # (Auto) 1.1 Thou/mm3 (0.0-0.8); Monocytes % (Auto) 10 % (0-12); Neutrophils # (Auto) 5.4 Thou/mm3 (1.8-7.7); Neutrophils % (Auto) 51 % (37-80); Nucleated Red Blood Cell # 0.00 Thou/mm3 (0.00-0.00); Nucleated Red Blood Cell % 0 /100 WBC (0); Platelet Count 289 Thou/mm3 (140-440); RDW Standard Deviation 44.6 fL (36.4-46.3); Red Blood Count 4.15 Miln/mm3 (4.00-5.20); White Blood Count 10.6 Thou/mm3 (3.6-11.0)
[2025-03-08 15:22] LABS: INR 1.0 (0.9-1.3); Partial Thromboplastin Time 30.2 Seconds (22.0-36.0); Prothrombin Time 11.1 Seconds (9.0-12.2)
[2025-03-08 15:24] LABS: B-Type Natriuretic Peptide 755 pg/mL (0-100)
[2025-03-08 15:25] LABS: Alanine Aminotransferase 18 U/L (10-49); Albumin, Serum 4.6 gm/dL (3.4-4.8); Albumin/Globulin Ratio 1.8 (1.2-2.2); Alkaline Phosphatase 124 U/L (46-116); Anion Gap 7 (7-16); Aspartate Amino Transferase 22 U/L (0-34); BUN/Creatinine Ratio 18 Ratio (12-20); Bilirubin,Total 0.4 mg/dL (0.3-1.2); Blood Urea Nitrogen 27 mg/dL (9-23); Calcium 9.9 mg/dL (8.3-10.6); Calcium (Corrected) 9.9 mg/dL (8.5-10.1); Carbon Dioxide 27.9 mMol/L (20.0-31.0); Chloride 100 mMol/L (98-107); Creatinine (Component) 1.5 mg/dL (0.6-1.3); Estimated Creatinine Clearance 36.9 mL/min (>60); Globulin 2.6 gm/dL (2.3-3.5); Glucose 94 mg/dL (74-106); LDH (Lactate Dehydrogenase) 192 U/L (120-246); Magnesium 2.1 mg/dL (1.6-2.6); Osmolality,Calculated 275 (275-295); Potassium 4.9 mMol/L (3.4-5.1); Sodium 135 mMol/L (136-145); Total Protein 7.2 gm/dL (5.7-8.2); Troponin I < 0.020 ng/mL (0.0-0.045); eGFR 36 See Note
[2025-03-08 20:08] LABS: Collection Type, Urine Clean Catch
[2025-03-08 20:18] LABS: Amphetamine/Methamp Scrn,U Negative (Negative); Barbiturate Screen,Urine Negative (Negative); Benzodiazepines Screen,Urine Negative (Negative); Benzoylecgonine Screen, Ur Negative (Negative); Fentanyl Screen,Urine Negative (Negative); Opiate Screen,Urine Negative (Negative); THC Screen,Urine Negative (Negative)
[2025-03-08 20:24] LABS: Troponin I < 0.020 ng/mL (0.0-0.045)
[2025-03-08 20:25] LABS: Amorphous Crystals,Urine Present (Absent); Bacteria,Urine 3+; Bilirubin,Urine Negative (Negative); Blood,Urine Negative (Negative); Clarity,Urine Clear (Clear/Hazy); Color,Urine Lt-Yellow (Lt Yel-Yel); Glucose, Urine Negative (Negative); Hyaline Casts,Urine < 1 /hpf (0-1); Ketones,Urine Negative (Negative); Leukocyte Esterase,Urine Negative (Negative); Nitrite,Urine Positive (Negative); PH,Urine 6.5 (5.0-7.0); Protein,Urine Negative (Neg - Trace); RBC,Urine 1 /hpf (0-3); Specific Gravity,Urine 1.009 (1.001-1.035); Squamous Epithelial Cell,Urine 1 /hpf (0-5); Urobilinogen,Urine Negative mg/dL (0.0-1.0); WBC,Urine < 1 /hpf (0-5)
--- NOTE | 2025-03-08 21:10 | PD.EDCHEST ---
ED Chest Pain RME/HPI General Chief Complaint: Chest Pain Stated Complaint: Chest pain X 2 days, SOB X 2 days Time Seen by Provider: 03/08/25 14:30 Arrival date/time: 03/08/25 13:34 RME / HPI RME / HPI narrative: Patient complains of chest pain with shortness of breath and a sensation of a vice sitting on her chest. Began [address] Dias?s Main ED Evaluation: 74yo female with a history of dementia, DM, HTN, GERD presents to the ED for a chief complaint of intermittent chest pain x 1 week. No radiation or migration. Patient states she had an endoscopy and colonoscopy last week and has since developed intermittent chest pain. Patient reports associated dizziness, unsteadiness, and BLE swelling for the last few days, reporting her symptoms have not resolved, so she came in for evaluation. Patient denies any N/V, UTI symptoms or any other associated symptoms. She is a former tobacco smoker. Customer Acquisition Specialist is Dr. Donovan. Related Data Home Medications ?Medication ?Instructions ?Recorded ?Confirmed mirabegron 50 mg tablet,extended 50 mg PO QDAY BLADDER CONTROL ##0 05/12/15 02/15/25 release 24 hr (Myrbetriq) simvastatin 20 mg tablet (Zocor) 20 mg PO QDAY High Cholesterol #0 05/12/15 02/15/25 tabs duloxetine 60 mg capsule,delayed 60 mg PO BID 11/26/17 02/15/25 release losartan 100 1 tab PO QDAY 11/26/17 02/15/25 mg-hydrochlorothiazide 12.5 mg tablet amlodipine 2.5 mg tablet 5 mg PO QDAY 08/09/23 02/15/25 aripiprazole 2 mg tablet 2 mg PO QDAY 08/09/23 02/15/25 carvedilol 12.5 mg tablet 12.5 mg PO BID 08/09/23 02/15/25 clopidogrel 75 mg tablet 75 mg PO QDAY 08/09/23 02/15/25 glipizide 5 mg tablet 5 mg PO BID 08/09/23 02/15/25 hydroxyzine HCl 25 mg tablet 25 mg PO HS PRN Anxiety 08/09/23 02/15/25 insulin glargine 100 unit/mL (3 20 unit subcut HS 08/09/23 02/15/25 mL) subcutaneous pen (Lantus Solostar U-100 Insulin) levothyroxine 175 mcg tablet 175 mcg PO QDAY 08/09/23 02/15/25 pantoprazole 40 mg tablet,delayed 40 mg PO QDAY 08/09/23 02/15/25 release Allergies Allergy/AdvReac Type Severity Reaction Status Date / Time aspirin Allergy Severe HIVES, Verified 03/08/25 13:39 SWELLING Review of Systems Review of Systems Systems Reviewed: All systems reviewed, normal except as documented Past Medical History Past Medical History NEUROLOGIC: Positive Neurological Disorders, Dementia, Migraine and Head Trauma; Negative Seizures CARDIAC: Positive Cardiac Disorders (hx of bradycardia, palpitation), Atherosclerotic Heart Disease, Hypercholesterolemia and Hypertension; Negative Congestive Heart Failure RESPIRATORY: Positive Asthma; Negative Chronic Obstructive Pulmonary Disease (COPD) GASTROINTESTINAL: Positive Gastrointestinal Disorders and Gall Bladder Disease; Negative Hepatitis or Colorectal Cancer GENITOURINARY: Positive Genitourinary Disorders (overactive bladder); Negative Renal Disease REPRODUCTIVE: Positive Previous Pregnancies; Negative Breast Cancer, Endometriosis, Pelvic Inflammatory Disease or Uterine Prolapse MUSCULOSKELETAL: Positive Musculoskeletal Disorders, Arthritis, Scoliosis, Carpal Tunnel Syndrome, Fibromyalgia and Degenerative Joint Disease; Negative Bone Cancer ENT: Positive Cataracts, Glaucoma and Head Trauma ENDOCRINE: Positive Endocrine Disorders, Diabetes Mellitus Type 2, Hyperthyroidism and Hypothyroidism; Negative Diabetes Mellitus Type 1 or Graves' Disease HEMATOLOGIC: Negative Blood Disorders, Anemia or Clotting Problems PSYCHO/SOCIAL: Positive Depression OTHER HISTORY: Positive Shingles, Chicken Pox and Measles; Negative Hospitalization, Autoimmune Disease, Down Syndrome, Developmental Delay, Falls, Blood Transfusions, Blood Transfusion Reaction, Anesthesia Reactions, Organ Transplant, Chemotherapy, Radiation Therapy, Hyperbaric Therapy, MRSA, VRSA, Vancomycin-Resistant Enterococci, Mumps, Clostridium Difficile, Cancer, Breast Cancer, Cervical Cancer, Colorectal Cancer, Lung Cancer or Ovarian Cancer Family History FAMILY HISTORY: Positive Family Psychiatric Problems, Family Respiratory Disorders, Family Cardiac Disorders and Family Cancer; Negative Family Gastrointestinal Problems, Family Surgery or Family Anesthesia Reaction Surgical History SURGICAL: Positive Cardiac Surgery, Angiogram, Endocrine Surgery, Thyroidectomy, Abdominal Surgery, Joint Replacement and Tubal Ligation; Negative Ear Surgery, Neurologic Surgery, Brain Shunt or Organ Transplant Social History SMOKING STATUS: Former smoker SUBSTANCE USE: does not use ED Exam Narrative Physical exam: GEN. APPEARANCE: The patient is alert awake oriented X-3 in no distress, lying down comfortably, does not look ill/toxic. Patient has good eye contact. Patient is cooperative. VITALS: All vitals were reviewed and the pulse ox is 95% on room air which is normal according to my interpretation. HEENT: Normocephalic, atraumatic. Pupils are equal and reactive. Oral mucosa is moist. Patent Nares NECK: Supple, nontender, no thyromegaly, no meningismus, no JVD CHEST: Symmetrical, atraumatic, and with equal expansion , Nontender on palpation no deformity and no crepitus. CARDIOVASCULAR: Heart regular rhythm no murmur or gallop rub or extra beats. LUNGS: Clear to auscultation bilaterally with symmetrical chest rise. No laboring tachypnea or wheezing. No intercostal subcostal retraction. No rales and no rhonchi. ABDOMEN: Soft, flat, nontender to palpation, no guarding or rebound tenderness. There are no abnormal masses palpated. Active and normal bowel sounds. EXTREMITIES: Nontender. Minimal edema to the BLE. No cyanosis. Resting tremor to the RUE. Patient is able to move all 4 extremities well, with full ROM and good CSM. SKIN: Warm and dry, no jaundice or rashes noted. NEURO: Patient is SHARMA x 4, Cranial nerves II through XII grossly intact. There is no focal neurologic deficits noted. GCS is 15, PNS and PAYROLL AND BENEFITS COORDINATOR appear grossly intact. PSYCHIATRIC: Patient is in normal mood and affect. Course Course Course Narrative: CXR is ordered for determining the etiology of chest pain. Quality Measures none Orders Category Date Time Status CT Screening NOW Care 03/08/25 21:[address] Screening NOW Care 03/08/25 21:[address] Screening NOW Care 03/08/25 23:55 Completed EKG (ED ONLY) *Do not use* NOW Care 03/08/25 13:40 Completed Ribeiro [Urinary Catheter] QS Care 03/09/25 04:[address] angio carotid w head w Stat Exams 03/08/25 23:[address] angio head Stat Exams 03/08/25 21:[address] head/brain wo con Stat Exams 03/08/25 21:[address] soft tissue neck chest w Stat Exams 03/08/25 21:11 Taken EKG (ED Only) Stat Exams 03/08/25 13:40 Draft XR chest 2V Stat Exams 03/08/25 14:32 Completed XR esophogram standard Stat Exams 03/08/25 23:54 Ordered B-Type Natriuretic Peptide Stat Lab 03/08/25 14:51 Completed CBC Stat Lab 03/08/25 14:51 Completed Comprehensive Metabolic Panel Stat Lab 03/08/25 14:51 Completed Drug Screen,Urine Stat Lab 03/08/25 19:37 Completed LDH (Lactate Dehydrogenase) Stat Lab 03/08/25 14:51 Completed Magnesium Stat Lab 03/08/25 14:51 Completed Partial Thromboplastin Time Stat Lab 03/08/25 14:51 Completed Prothrombin Time with INR Stat Lab 03/08/25 14:51 Completed Troponin I Stat Lab 03/08/25 14:51 Completed Troponin I Stat Lab 03/08/25 19:58 Completed Urinalysis Stat Lab 03/08/25 19:37 Completed Ringers Lactated 1000 ml [Lactated Ringers] 1,000 ml Med 03/09/25 02:14 Discontinued IV 999 mls/hr Vital Signs Vital signs: Vital Signs Temperature 98.3 F 03/08/25 13:44 Pulse Rate 83 03/08/25 13:44 Respiratory Rate 18 03/08/25 13:44 Blood Pressure 148/64 H 03/08/25 13:44 Pulse Oximetry (%) 95 03/08/25 13:44 Oxygen Delivery Method Room Air 03/08/25 13:44 Chest Pain MDM Narrative MDM Narrative:: Scribe Attestation: 03/08/25 Angie Corrales am scribing for and in the presence of Dr. Dias. Patient data External records reviewed:: [facility] previous records (Per chart review, patient was seen here on 08/24/24 for acute urinary retention.) Clinical information provided by:: patient Social determinants that could affect healthcare access:: substance use (former tobacco smoker) Patient has the following chronic illnesses:: dementia, DM, HTN, GERD How is presenting disease/condition affected by chronic disease/condition?: uneffected by Evaluation data The following diagnostics were reviewed and interpreted by me:: lab results, radiology exam(s) and EKG tracing(s) Lab and/or radiology exams considered but not ordered:: none Interpretation Summary: CBC normal, PT/INR/PTT normal, Creatinine 1.5, Troponin normal, BNP 755, UA positive for UTI, UDS negative. EKG done at 1345, sinus bradycardia, rate of 44, normal intervals, nonspecific ST-T changes, no acute ischemia, according to my interpretation. [facility] Report Signed Patient: CODY ROGERS [facility]. Record#: [id number] Birthdate: 1950 Age/Sex: 74 / F Location: [facility] Attending Dr: Ordering Physician: Beto Mijares PA-C Date of Service: 03/08/25 Procedure(s): XR chest 2V Accession Number(s): [id number] cc: Sincere Grey MD; Beto Mijares PA-C~ Examination: PA lateral chest 2 views TECHNIQUE: Upright PA lateral chest 2 views Date and time: March 08, 2025 1441 hours Comparison January 13, 2025 INDICATIONS: Chest pain post endoscopy one week ago. FINDINGS: Accentuation bronchovascular markings. Normal heart size Prominent osteopenia IMPRESSION: Bronchitis pattern Dictated By: Sincere Grey MD Signed By: <Electronically signed by Sincere Grey MD in OV> 03/08/25 1455 [facility] Preliminary Report Draft Patient: CODY ROGERS [facility]. Record#: [id number] Birthdate: 1950 Age/Sex: 74 / F Location: [facility] Attending Dr: Ordering Physician: Date of Service: Procedure(s): Accession Number(s): cc: ~ CT scan of the neck with intravenous contrast (axial sections with sagittal and coronal reformats) March 09, 2025 0041 hours Clinical History: Perforation s/p EGD Comparison: No prior study is available for comparison. Findings: The nasopharynx, oropharynx, hypopharynx, supraglottic and infraglottic larynx, vocal cords and upper trachea are unremarkable. The epiglottis and aryepiglottic folds appear unremarkable. No enhancing lesion or fluid collection is identified. The vessels of the neck are well opacified. No filling defect is seen. Subcentimeter lymph nodes are noted in bilateral jugular regions. The superficial soft tissues of the neck are unremarkable. Degenerative changes are identified in the spine. There is multilevel calcification of the ligamentum flavum. Impression: No evidence of esophageal perforation. Unremarkable CT scan of the neck. Report Electronically Signed By: Papi Jacinto 03/09/2025 2:02:39 AM [facility] Preliminary Report Draft Patient: CODY ROGERS Record#: [id number] Birthdate: 1950 Age/Sex: 74 / F Location: [facility] Attending Dr: Ordering Physician: Date of Service: Procedure(s): Accession Number(s): cc: ~ CT angiogram of the head and neck with intravenous contrast (axial sections with sagittal and coronal reformats) March 09, 2025 0041 hours Clinical History: TIA Comparison: No prior study is available for comparison. Findings: Head: The internal carotid, middle and anterior cerebral arteries are patent bilaterally. The A1 segment of the left anterior cerebral artery is hypoplastic. The intracranial vertebral arteries are patent. The vertebrobasilar junction, basilar and posterior cerebral arteries are patent. No evidence of large vessel occlusion, critical stenosis or aneurysm. There is mild atheromatous calcification of the intracranial arteries. Neck: The aortic arch to the extent visualized as well as the origins of the right brachiocephalic, left common carotid, and left subclavian arteries are patent. The common carotid arteries, internal and external carotid arteries are patent. There are calcified atheromatous plaques in the right internal carotid bulb causing 60% stenosis. There are calcified atheromatous plaques in the left internal carotid bulb causing 50% stenosis. The origins of the vertebral arteries are unremarkable. No evidence of vascular occlusion, dissection or aneurysm. The soft tissues of the neck are unremarkable. The osseous structures are unremarkable. Impression: Head: No evidence of large vessel occlusion, critical stenosis or aneurysm. Neck: No evidence of vascular occlusion, dissection or aneurysm. Calcified atheromatous plaques in the bilateral internal carotid bulbs causing moderate stenosis. Report Electronically Signed By: Papi Jacinto 03/09/2025 2:08:12 AM [EST] CT scan of the head without intravenous contrast (axial sections with sagittal and coronal reformats) March 09, 2025 at 0039 hours Clinical History: Dizzy. Comparison: No prior study is available for comparison. Findings: There is moderate white matter disease within the cerebral hemispheres which is nonspecific, but may represent chronic small vessel ischemic change. There is involutional atrophy of the cerebral hemispheres. There is no intracranial hemorrhage, extra-axial collection, mass, mass-effect or midline shift. There is good clark-white differentiation. There is no CT evidence of acute large vascular territorial infarct Ventricles are not enlarged or effaced. Basal ganglia calcifications are noted within the cerebral hemispheres. There is atherosclerotic calcification along the intracranial vertebral arteries and carotid siphons. Visualized paranasal sinuses and tympanomastoid cavities are clear. The bony calvarium is intact. Impression: No intracranial hemorrhage, mass-effect or midline shift. No CT evidence of acute large vascular territorial infarct. This report has been electronically signed by: Alberto Cornell MD. Medications / Prescriptions Medications or Prescriptions considered but not ordered:: none Medication administrations:: Medication Administration History Discontinued Medications Lactated Ringer's (Lactated Ringers) 1,000 mls @ 999 mls/hr IV .Q1H1M ONE Stop: 03/09/25 03:14 Last Admin: 03/09/25 02:22 Dose: Not Given Documented By: KATHRIN Non-Admin Reason: Cancelled by Provider see above Consultations Consultation(s) initiated? (list below): No Diagnosis Chest Pain Differential Diagnosis: other (esophageal perforation, TIA, GERD, ACS) Most likely diagnosis given after review of the tests above:: dx pending at signout Admission Indicated Admission indicated?: not indicated Admission Request Was there a request for admission?: No Disposition Plan Disposition Plan: other (specify) (Signed out to the next oncoming provider at 0600 pending XR esophogram.) Discharge Plan Prescriptions/Referrals Prescriptions/Med Rec: No Action simvastatin [Zocor] 20 MG tablet 20 mg PO QDAY Qty: 0 mirabegron [Myrbetriq] 50 MG tablet extended release 24 hr 50 mg PO QDAY Qty: 0 duloxetine 60 mg Capsule,Delayed Release(Dr/Ec) 60 mg PO BID losartan-hydrochlorothiazide 100-12.5 mg Tablet 1 tab PO QDAY levothyroxine 175 mcg tablet 175 mcg PO QDAY carvedilol 12.5 mg tablet 12.5 mg PO BID amlodipine 2.5 mg tablet 5 mg PO QDAY clopidogrel 75 mg tablet 75 mg PO QDAY pantoprazole 40 mg tablet,delayed release (DR/EC) 40 mg PO QDAY hydroxyzine HCl 25 mg tablet 25 mg PO HS PRN (Reason: Anxiety) Patient Comments: TAKE 1 TABLET BY MOUTH AT BEDTIME NEEDED FOR 90 DAYS glipizide 5 mg tablet 5 mg PO BID Patient Comments: TAKE 1 TABLET BY MOUTH TWICE A DAY aripiprazole 2 mg tablet 2 mg PO QDAY insulin glargine [Lantus Solostar U-100 Insulin] 100 unit/mL (3 mL) insulin pen 20 unit SUBCUT HS Referrals: Marine Astudillo, GAS ANALYST [Primary Care Provider] - In 1 week Problem List Clinical Impression: Epigastric abdominal pain, Chest pain Patient/Caregiver Discharge Instructions Print Language: Lithuanian
--- NOTE | 2025-03-08 21:11 | XR_ITS ---
Examination: CT soft tissue neck with intravenous contrast CT chest with intravenous contrast 2-D sagittal and coronal reconstructions Exam date and time: March 09, 2025 0041 hours INDICATIONS: Chest pain status post endoscopy 2 days ago with esophageal pain CTDI:vol (mGy) 11.4 DLP: (mGycm) 455 Technique: Multiple axial sections of the thorax soft tissue neck have been obtained. Sections have been obtained, 3 mm slice thickness. Mediastinal and lung density settings have been obtained. Intravenous contrast administered, 40 cc Isovue-300. 2-D sagittal, coronal images obtained. Low dose protocols were performed. One or more of the following dose reduction techniques were used; automated exposure control, adjustment of the mA and/or KV according to patient size, use of iterative reconstruction technique. Findings: Symmetrical nasopharynx oropharynx Heavy calcification carotid artery bifurcations axial image 33 The larynx appears normal Normal epiglottis No abnormal air density outside the wall of the esophagus is noted No paratracheal tracheobronchial or bronchopulmonary adenopathy Pulmonary artery segments are not enlarged, AP dimension ascending thoracic aorta 3.6 cm No pneumonia or pleural fluid in the hemithoraces Liver spleen is intact Distal wall of the esophagus is mildly thickened Absent gallbladder. Common bile duct 13 mm IMPRESSION: No soft tissue neck or chest mass depicted No findings of esophageal perforation Consider standard fluoroscopically guided esophagram follow-up Mild thickening of the lower wall of the esophagus, consider reflux esophagitis Common bile duct 13 mm, consider hepatobiliary sonography follow-up
--- NOTE | 2025-03-08 21:11 | XR_ITS ---
Examination: CT brain head without contrast. 2-D sagittal coronal reconstructions Date and time of exam:March 09, 2025 at 0039 hours INDICATIONS: Transient ischemic attacks dizziness episodes today CTDI: vol (mGy):49.2 DLP: (mGycm):992 Technique: Multiple CT axial sections of the brain have been obtained, 5 mm slice thickness. Contrast has not been administered. 2-D sagittal, coronal reconstructions have been obtained Low dose protocols were performed. One or more of the following dose reduction techniques were used; automated exposure control, adjustment of the mA and/or KV according to patient size, use of iterative reconstruction technique. Findings: No significant ventricular enlargement. Intra-axial or extra-axial hemorrhage density is not seen. No mass effect or midline shift Basal cisterns are not remarkable. Fourth ventricle is midline. Cranial vault intact. Impression: Negative for acute hemorrhage, mass effect or midline shift If symptoms persist, consider brain MRI follow-up, stroke protocol
[2025-03-08 22:16] VITALS: BP 153/56; PULSE 71; RESP 18; TEMP 37.2; O2SAT 94
--- NOTE | 2025-03-08 23:55 | XR_ITS ---
Examination: CTA carotids with intravenous contrast CTA brain, head with intravenous contrast. 2-D sagittal, coronal reconstructions. 3-D reconstructions. Exam date and time: March 09, 2025 0041 hours INDICATIONS: Episodes of dizziness transient ischemic attacks beginning 2 days ago CTDI: vol (mGy) 11.4 DLP: (mGycm) 455 Technique: Multiple CTA axial brain, head carotid images post intravenous contrast injection 40 cc Isovue-300. 2-D sagittal, coronal reconstructions. 3-D reconstructions, 3-D post processing including vascular maximum intensity projection images. Low dose protocols were performed. One or more of the following dose reduction techniques were used; automated exposure control, adjustment of the mA and/or KV according to patient size, use of iterative reconstruction technique. Findings: Significant calcification right carotid bifurcation, 50-70% stenosis at the bifurcation origin right internal carotid artery Moderate calcification left carotid bifurcation, 40-50% stenosis at the bifurcation origin left internal carotid artery Dominant left vertebral artery with no critical stenoses No cerebral large vessel occlusions or thromboses IMPRESSION: 50-70% stenosis origin right internal carotid artery. 40-50% stenosis origin left internal carotid artery Consider brain MRI MRA follow-up, stroke protocol, as clinically warranted
[2025-03-09 00:14] VITALS: BP 154/77; PULSE 73; RESP 16; TEMP 36.4; O2SAT 94
--- NOTE | 2025-03-09 02:03 | PRELIM_ITS ---
CT scan of the neck with intravenous contrast (axial sections with sagittal and coronal reformats) March 09, 2025 0041 hours Clinical History: Perforation s/p EGD Comparison: No prior study is available for comparison. Findings: The nasopharynx, oropharynx, hypopharynx, supraglottic and infraglottic larynx, vocal cords and upper trachea are unremarkable. The epiglottis and aryepiglottic folds appear unremarkable. No enhancing lesion or fluid collection is identified. The vessels of the neck are well opacified. No filling defect is seen. Subcentimeter lymph nodes are noted in bilateral jugular regions. The superficial soft tissues of the neck are unremarkable. Degenerative changes are identified in the spine. There is multilevel calcification of the ligamentum flavum. Impression: No evidence of esophageal perforation. Unremarkable CT scan of the neck. Report Electronically Signed By: Papi Jacinto 03/09/2025 2:02:39 AM [EST]
--- NOTE | 2025-03-09 02:08 | PRELIM_ITS ---
CT angiogram of the head and neck with intravenous contrast (axial sections with sagittal and coronal reformats) March 09, 2025 0041 hours Clinical History: TIA Comparison: No prior study is available for comparison. Findings: Head: The internal carotid, middle and anterior cerebral arteries are patent bilaterally. The A1 segment of the left anterior cerebral artery is hypoplastic. The intracranial vertebral arteries are patent. The vertebrobasilar junction, basilar and posterior cerebral arteries are patent. No evidence of large vessel occlusion, critical stenosis or aneurysm. There is mild atheromatous calcification of the intracranial arteries. Neck: The aortic arch to the extent visualized as well as the origins of the right brachiocephalic, left common carotid, and left subclavian arteries are patent. The common carotid arteries, internal and external carotid arteries are patent. There are calcified atheromatous plaques in the right internal carotid bulb causing 60% stenosis. There are calcified atheromatous plaques in the left internal carotid bulb causing 50% stenosis. The origins of the vertebral arteries are unremarkable. No evidence of vascular occlusion, dissection or aneurysm. The soft tissues of the neck are unremarkable. The osseous structures are unremarkable. Impression: Head: No evidence of large vessel occlusion, critical stenosis or aneurysm. Neck: No evidence of vascular occlusion, dissection or aneurysm. Calcified atheromatous plaques in the bilateral internal carotid bulbs causing moderate stenosis. Report Electronically Signed By: Papi Jacinto 03/09/2025 2:08:12 AM [EST]
[2025-03-09 02:12] VITALS: BP 174/85; PULSE 76; RESP 14; TEMP 36.8; O2SAT 98
[2025-03-09 05:30] VITALS: BP 166/88; PULSE 81; RESP 18; TEMP 36.7; O2SAT 95
[2025-03-09 09:00] VITALS: BP 178/78; PULSE 89; RESP 16; TEMP 36.6; O2SAT 95
[2025-03-09 12:32] VITALS: BP 157/71; PULSE 85; RESP 15; TEMP 36.7; O2SAT 96
[2025-03-09] MEDS: AZITHROMYCIN 250 MG TABLET 500 MG PO (14:20)
[2025-03-09 14:31] VITALS: BP 159/70; PULSE 90; RESP 19; TEMP 36.6; O2SAT 95
--- NOTE | 2025-03-19 19:19 | PD.EDADDENDU ---
Emergency Room Addendum Addendum Narrative: 0600: Care assumed from Dr. Dias, the previous shift emergency physician. Past medical, surgical, social and family history reviewed. Vitals and home medications reviewed. Results and treatment plan discussed. I will assume the care of the patient at this time and will follow the patient, pending XR esophagram. Please refer to the emergency department record for history and examination from initial visit. Patient complains of mild cough and sore throat on my evaluation. Labs and radiology results reviewed and are unremarkble. I do not feel the patient needs an esophagram at this time. Patient is stable for discharge home for outpatient follow-up.
== END 2025-03-09 14:32 | disposition home or self-care (01) ==
PROVIDERS: Physician Assistant; Emergency Provider Emergency Medicine; PCP Nurse Practitioner Family
DX: R10.13 Epigastric pain (principal); I65.23 Occlusion and stenosis of bilateral carotid arteries; R00.1 Bradycardia, unspecified; I25.10 Atherosclerotic heart disease of native coronary artery without angina pectoris; E78.00 Pure hypercholesterolemia, unspecified; I10 Essential (primary) hypertension; Z87.891 Personal history of nicotine dependence; Z79.02 Long term (current) use of antithrombotics/antiplatelets
CPT/HCPCS: 51702; 36415; 70450; 70491; 70496; 70498; 71046; 71260; 80053; 80307; 81001; 83615; 83735; 83880; 84484; 85025; 85610; 85730; 93005; 99291; A4314; A4649; Q9967; A9270

== ENCOUNTER → 2025-04-09 | Outpatient (CLI) | payer MEDICAID, OTHER, SELFPAY ==
--- NOTE | 2025-04-09 | XR_ITS ---
EXAMINATION: Ankle, right 3 views . Technique: Ankle AP, oblique, lateral 3 views Date and time of exam: April 09, 2025 1236 hours INDICATIONS: Patient fell last week with injury to the ankle, ankle pain. FINDINGS: Old fracture at the fibular tip, please see the ankle films April 06, 2022 No ankle dislocation No acute fracture IMPRESSION: No acute fracture
--- NOTE | 2025-04-09 | XR_ITS ---
Examination:Right hip AP, lateral, AP pelvis 3 views Technique: Hip AP lateral, AP pelvis, 3 views Exam date and time:April 09, 2025 1236 hours INDICATIONS: Patient pulled week ago with injury to the right hip and right hip pain. FINDINGS: No right hip fracture or hip dislocation Moderate bilateral hip osteoarthritis Bones of the pelvis intact IMPRESSION: No acute hip or pelvic fracture.
== END | disposition home or self-care (01) ==
LOC: CDIM 11:50
PROVIDERS: PCP Nurse Practitioner Family; Referring Provider Nurse Practitioner Family; Visit Provider Nurse Practitioner Family
DX: S79.911A Unspecified injury of right hip, initial encounter (principal); S99.911A Unspecified injury of right ankle, initial encounter; X58.XXXA Exposure to other specified factors, initial encounter
CPT/HCPCS: 73502; 73610

== ENCOUNTER → 2025-05-24 | Outpatient (CLI) | payer OTHER, MEDICAID, SELFPAY ==
--- NOTE | 2025-05-24 13:00 | XR_ITS ---
Examination: Screening digital mammography, bilateral Computer aided detection 3-D breast Tomosynthesis, bilateral Date and time of exam: May 24, 2025 1329 hours Compared to mammograms dating to November 20, 2013 Indication: Screening Technique: Nonmagnified MLO, CC views of the breasts to been obtained, reconstructed from 3-D Tomosynthesis images. R2 computer aided detection program utilized for evaluation of suspicious masses and/or abnormal calcifications. 3-D Tomosynthesis images obtained. Findings: Scattered areas of fibroglandular density. Benign calcifications. No interval suspicious masses Impression: BI-RADS category II: Benign Findings. Recommend 1 year follow-up mammogram.
[2025-05-24 14:58] LABS: Thyroid Stimulating Hormone < 0.01 uIU/mL (0.55-4.78)
== END | disposition home or self-care (01) ==
LOC: CDIM 13:15 → COPL 13:41
PROVIDERS: PCP Family Medicine; Referring Provider Nurse Practitioner Family; Visit Provider Radiology Diagnostic Radiology
DX: Z12.31 Encounter for screening mammogram for malignant neoplasm of breast (principal); R92.8 Other abnormal and inconclusive findings on diagnostic imaging of breast; R92.323 Mammographic fibroglandular density, bilateral breasts; E11.9 Type 2 diabetes mellitus without complications
CPT/HCPCS: 36415; 77063; 77067; 84443

== ENCOUNTER 2025-07-16 11:32 | Emergency (ER) | payer OTHER, MEDICAID, SELFPAY ==
[2025-07-16 11:32] VITALS: BMI 34.7
[2025-07-16 11:45] VITALS: BP 166/84; PULSE 89; RESP 18; TEMP 36.6; O2SAT 99
--- NOTE | 2025-07-16 12:12 | PD.EDBACK ---
ED Back Injury Pain RME/HPI General Chief Complaint: Back Pain/Injury Stated Complaint: CHRONIC BACK PAIN Time Seen by Provider: 07/16/25 11:45 Source: patient Arrival date/time: 07/16/25 11:32 75-year-old female with a history of hypertension, type 2 diabetes, chronic back pain presents to the emergency room with a chief complaint of lower lumbar pain x 3 days Mode of arrival: ambulatory Limitations: no limitations Related Data Home Medications ?Medication ?Instructions ?Recorded ?Confirmed mirabegron 50 mg tablet,extended 50 mg PO QDAY BLADDER CONTROL ##0 05/12/15 02/15/25 release 24 hr (Myrbetriq) simvastatin 20 mg tablet (Zocor) 20 mg PO QDAY High Cholesterol #0 05/12/15 02/15/25 tabs duloxetine 60 mg capsule,delayed 60 mg PO BID 11/26/17 02/15/25 release losartan 100 1 tab PO QDAY 11/26/17 02/15/25 mg-hydrochlorothiazide 12.5 mg tablet amlodipine 2.5 mg tablet 5 mg PO QDAY 08/09/23 02/15/25 aripiprazole 2 mg tablet 2 mg PO QDAY 08/09/23 02/15/25 carvedilol 12.5 mg tablet 12.5 mg PO BID 08/09/23 02/15/25 clopidogrel 75 mg tablet 75 mg PO QDAY 08/09/23 02/15/25 glipizide 5 mg tablet 5 mg PO BID 08/09/23 02/15/25 hydroxyzine HCl 25 mg tablet 25 mg PO HS PRN Anxiety 08/09/23 02/15/25 insulin glargine 100 unit/mL (3 20 unit subcut HS 08/09/23 02/15/25 mL) subcutaneous pen (Lantus Solostar U-100 Insulin) levothyroxine 175 mcg tablet 175 mcg PO QDAY 08/09/23 02/15/25 pantoprazole 40 mg tablet,delayed 40 mg PO QDAY 08/09/23 02/15/25 release Previous Rx's ?Medication ?Instructions ?Recorded hydrocodone 5 mg-acetaminophen 325 1 tab PO BID PRN pain #6 tabs 07/16/25 mg tablet Allergies Allergy/AdvReac Type Severity Reaction Status Date / Time aspirin Allergy Severe HIVES, Verified 07/16/25 11:34 SWELLING Review of Systems Review of Systems Systems Reviewed: All systems reviewed, normal except as documented Constitutional Constitutional: Reports system reviewed and no additional complaints, except as documented, Denies fatigue, Denies fever(s), Denies headache(s) and Denies weakness Eyes Eyes: Reports system reviewed and no additional complaints, except as documented, Denies blurry vision and Denies change in vision ENT Ears, Nose, Mouth, and Throat: Reports system reviewed and no additional complaints, except as documented, Denies otalgia, Denies headache(s), Denies nasal congestion, Denies throat swelling and Denies vertigo Cardiovascular Cardiovascular: Reports system reviewed and no additional complaints, except as documented, Denies chest pain, Denies dyspnea and Denies dyspnea on exertion Respiratory Respiratory: Reports system reviewed and no additional complaints, except as documented, Denies chest congestion, Denies cough, Denies dyspnea, Denies dyspnea on exertion and Denies wheezing Gastrointestinal Gastrointestinal: Reports system reviewed and no additional complaints, except as documented, Denies abdominal pain, Denies cramping, Denies nausea and Denies vomiting Genitourinary Genitourinary: Reports system reviewed and no additional complaints, except as documented Musculoskeletal Musculoskeletal: Reports system reviewed and no additional complaints, except as documented and Reports back pain Integumentary/Breasts Skin/Breast: Reports system reviewed and no additional complaints, except as documented and Denies wounds Neurologic Neurologic: Reports system reviewed and no additional complaints, except as documented, Denies confusion, Denies headache(s), Denies lack of coordination, Denies vertigo and Denies weakness Psychiatric Psychiatric: Reports system reviewed and no additional complaints, except as documented, Denies anxiety, Denies confusion, Denies depression, Denies paranoia, Denies suicidal ideation and Denies tactile hallucinations Endocrine Endocrine: Reports system reviewed and no additional complaints, except as documented and Denies fatigue Hematologic/Lymphatic Hematologic/Lymphatic: Reports system reviewed and no additional complaints, except as documented and Denies lymphadenopathy Allergic/Immunologic Allergic/Immunologic: Reports system reviewed and no additional complaints, except as documented, Denies throat swelling, Denies urticaria and Denies wheezing Past Medical History Past Medical History NEUROLOGIC: Positive Neurological Disorders, Dementia, Migraine and Head Trauma; Negative Seizures CARDIAC: Positive Cardiac Disorders, Atherosclerotic Heart Disease, Hypercholesterolemia and Hypertension; Negative Congestive Heart Failure RESPIRATORY: Positive Asthma; Negative Chronic Obstructive Pulmonary Disease (COPD) GASTROINTESTINAL: Positive Gastrointestinal Disorders and Gall Bladder Disease; Negative Hepatitis or Colorectal Cancer GENITOURINARY: Positive Genitourinary Disorders; Negative Renal Disease REPRODUCTIVE: Positive Previous Pregnancies; Negative Breast Cancer, Endometriosis, Pelvic Inflammatory Disease or Uterine Prolapse MUSCULOSKELETAL: Positive Musculoskeletal Disorders, Arthritis, Scoliosis, Carpal Tunnel Syndrome, Fibromyalgia and Degenerative Joint Disease; Negative Bone Cancer ENT: Positive Cataracts, Glaucoma and Head Trauma ENDOCRINE: Positive Endocrine Disorders, Diabetes Mellitus Type 2, Hyperthyroidism and Hypothyroidism; Negative Diabetes Mellitus Type 1 or Graves' Disease HEMATOLOGIC: Negative Blood Disorders, Anemia, Sickle Cell Disease or Clotting Problems PSYCHO/SOCIAL: Positive Depression OTHER HISTORY: Positive Shingles, Chicken Pox and Measles; Negative Hospitalization, Autoimmune Disease, Down Syndrome, Developmental Delay, Falls, Blood Transfusions, Blood Transfusion Reaction, Anesthesia Reactions, Organ Transplant, Chemotherapy, Radiation Therapy, Hyperbaric Therapy, MRSA, VRSA, Vancomycin-Resistant Enterococci, Mumps, Clostridium Difficile, Cancer, Breast Cancer, Cervical Cancer, Colorectal Cancer, Lung Cancer or Ovarian Cancer Family History FAMILY HISTORY: Positive Family Psychiatric Problems, Family Respiratory Disorders, Family Cardiac Disorders and Family Cancer; Negative Family Gastrointestinal Problems, Family Surgery or Family Anesthesia Reaction Surgical History SURGICAL: Positive Cardiac Surgery, Angiogram, Endocrine Surgery, Thyroidectomy, Abdominal Surgery, Joint Replacement and Tubal Ligation; Negative Ear Surgery, Neurologic Surgery, Brain Shunt or Organ Transplant Social History SMOKING STATUS: Never smoker SUBSTANCE USE: does not use ED Exam General Limitations: Present no limitations General appearance: Present alert and in no apparent distress Head Head exam: Present atraumatic Eye Eye exam: Present normal appearance, PERRL and EOMI ENT ENT exam: Present normal exam, normal oropharynx and mucous membranes moist Neck Neck exam: Present normal inspection, full ROM and trachea midline Chest Chest inspection: Present normal inspection and symmetric chest wall rise Respiratory Respiratory exam: Present normal lung sounds bilaterally Cardiovascular Cardiovascular exam: Present regular rate, normal rhythm and normal heart sounds Abdominal Exam Abdominal exam: Present soft and normal bowel sounds Extremities Exam Extremities exam: Present normal inspection and full ROM Back Exam Back exam: Present normal inspection, full ROM and vertebral tenderness Back 1 view image:  1. Tenderness with palpation of lumbar spine Neurological Exam Neurological exam: Present alert, oriented X3 and CN II-XII intact Psychiatric Psychiatric exam: Present normal affect and normal mood Skin Skin exam: Present warm, dry, intact and normal color Course Quality Measures none Orders Category Date Time Status Ketorolac Inj [Toradol Inj] Med 07/16/25 11:59 Discontinued 30 mg IM X1 ONE Vital Signs Vital signs: Vital Signs Temperature 98 F 07/16/25 11:45 Pulse Rate 89 07/16/25 11:45 Respiratory Rate 18 07/16/25 11:45 Blood Pressure 166/84 H 07/16/25 11:45 Pulse Oximetry (%) 99 07/16/25 11:45 Oxygen Delivery Method Room Air 07/16/25 11:45 Back Pain / Injury MDM Narrative MDM Narrative:: 75-year-old female with a history of hypertension, type 2 diabetes, chronic back pain presents to the emergency room with a chief complaint of lower lumbar pain x 3 days Patient is hemodynamically stable and in no apparent distress Physical examination shows tenderness with palpation of the lumbar area of the patient's spine. The patient suffers from chronic lower back pain. The patient is seen by a review specialist with shoulder that is not recommended for her to have surgery as there can be more complications. The patient is also seen by pain management. Patient states she is here due to breakthrough pain. There is no new trauma or any evidence of any worsening symptoms. The patient denies any loss of bowel or bladder function. The patient denies any numbness to the lower extremities Pain medication was given with significant improvement to her symptoms Patient was discharged and educated to follow-up with primary care provider in the next 24 to 48 hours and return to the emergency room for any evidence of worsening signs or symptoms Patient data External records reviewed:: [facility] previous records Clinical information provided by:: patient Social determinants that could affect healthcare access:: none Patient has the following chronic illnesses:: Chronic back pain How is presenting disease/condition affected by chronic disease/condition?: exacerbated by Evaluation data The following diagnostics were reviewed and interpreted by me:: lab results and radiology exam(s) Lab and/or radiology exams considered but not ordered:: Labs and radiology exams considered and ordered Interpretation Summary: N/A Medications / Prescriptions Medications or Prescriptions considered but not ordered:: Medication given Medication administrations:: Medication Administration History Discontinued Medications Ketorolac Tromethamine (Ketorolac Inj 60 Mg/2 Ml Vial) 30 mg IM X1 ONE Stop: 07/16/25 12:00 Last Admin: 07/16/25 12:32 Dose: 30 mg Documented By: SETH Medication given Consultations Consultation(s) initiated? (list below): No Diagnosis Differential diagnosis back pain/injury: lumbar radiculopathy, strain of lumbar region and discitis Most likely diagnosis given after review of the tests above:: Strain of lumbar region Admission Indicated Admission indicated?: not indicated Admission Request Was there a request for admission?: No Disposition Plan Disposition Plan: Discharge Discharge Attestation Discharge Attestation: The patient and all family members were given an opportunity to ask questions and understood the discharge instructions. Discharge instructions specifically effects, indications for sooner follow up or return to the emergency department, and the expected course of current diagnosis. Patient condition: Stable Discharge Plan Plan Patient Disposition: HOME (Self Care) Discharge Disposition comment: Stable Prescriptions/Referrals Prescriptions/Med Rec: New hydrocodone-acetaminophen 5-325 mg tablet 1 tab PO BID MDD 10mg PRN (Reason: pain) Qty: 6 0RF No Action simvastatin [Zocor] 20 MG tablet 20 mg PO QDAY Qty: 0 mirabegron [Myrbetriq] 50 MG tablet extended release 24 hr 50 mg PO QDAY Qty: 0 duloxetine 60 mg Capsule,Delayed Release(Dr/Ec) 60 mg PO BID losartan-hydrochlorothiazide 100-12.5 mg Tablet 1 tab PO QDAY levothyroxine 175 mcg tablet 175 mcg PO QDAY carvedilol 12.5 mg tablet 12.5 mg PO BID amlodipine 2.5 mg tablet 5 mg PO QDAY clopidogrel 75 mg tablet 75 mg PO QDAY pantoprazole 40 mg tablet,delayed release (DR/EC) 40 mg PO QDAY hydroxyzine HCl 25 mg tablet 25 mg PO HS PRN (Reason: Anxiety) Patient Comments: TAKE 1 TABLET BY MOUTH AT BEDTIME NEEDED FOR 90 DAYS glipizide 5 mg tablet 5 mg PO BID Patient Comments: TAKE 1 TABLET BY MOUTH TWICE A DAY aripiprazole 2 mg tablet 2 mg PO QDAY insulin glargine [Lantus Solostar U-100 Insulin] 100 unit/mL (3 mL) insulin pen 20 unit SUBCUT HS Problem List Clinical Impression: Strain of lumbar region Patient/Caregiver Discharge Instructions Education Materials: ED Back Sprain/Strain Additional Instructions: Please follow-up with your review specialist in the next 24 to 48 hours Medication was sent to your pharmacy please pick it up and take it as indicated For any evidence of worsening signs or symptoms return to emergency room immediately Print Language: Prydeinig Stand Alone Forms: [employer] Info., Patient Portal Info Letter PA/HELPER/DRIVER Supervising Physician PA/HELPER/DRIVER Supervising Physician: Dr. Chi
[2025-07-16] MEDS: KETOROLAC INJ 60 MG/2 ML VIAL 30 MG IM (12:32)
== END 2025-07-16 13:14 | disposition home or self-care (01) ==
PROVIDERS: Emergency Provider Nurse Practitioner Family
DX: S39.012A Strain of muscle, fascia and tendon of lower back, initial encounter (principal); X58.XXXA Exposure to other specified factors, initial encounter; E11.9 Type 2 diabetes mellitus without complications; I10 Essential (primary) hypertension
CPT/HCPCS: 96372; 99282; J1885

== ENCOUNTER 2025-08-03 13:42 | Emergency (ER) | payer OTHER, MEDICAID, SELFPAY ==
[2025-08-03 14:08] VITALS: BP 170/78; PULSE 75; RESP 20; TEMP 36.7; O2SAT 95; BMI 32.7
--- NOTE | 2025-08-03 14:19 | XR_ITS ---
Examination: CT abdomen and pelvis without contrast. Coronal 3-D reconstructions. Sagittal 2-D reconstructions. Date and time of exam: August 03, 2025, 1517 hours, comparison August 24, 2024 INDICATIONS: Left lower abdominal pain worse the last month CTDI: vol (mGy): 12.9 DLP: (mGycm): 718 Technique: Axial images of the abdomen have been obtained, 3 mm slice thickness Intravenous contrast material has not been administered. Low dose protocols were performed. One or more of the following dose reduction techniques were used; automated exposure control, adjustment of the mA and/or KV according to patient size, use of iterative reconstruction technique. Findings: No focal liver or splenic lesions Retrocardiac gastric hernia Absent gallbladder No pancreatic mass Mild nodular thickening left adrenal gland Subcentimeter renal calculi No hydronephrosis or ureteral calculi Aortic calcification no aneurysmal dilatation Suspicious for 80% stenosis origin left common iliac artery Normal appendix No bowel obstruction Intact urinary bladder Diffuse advanced lumbar degenerative disc disease IMPRESSION: Bilateral nonobstructing renal calculi, no hydronephrosis or ureteral calculi Suspicious for 80% stenosis left common iliac artery, consider arterial Doppler ultrasound lower extremity follow-up No bowel obstruction diverticulitis or free air
[2025-08-03] MEDS: KETOROLAC INJ 60 MG/2 ML VIAL 30 MG IM (14:35)
[2025-08-03 14:45] LABS: Basophils # (Auto) 0.1 Thou/mm3 (0.0-0.2); Basophils % (Auto) 1 % (0-2.5); Eosinophils # (Auto) 0.3 Thou/mm3 (0.0-0.5); Eosinophils % (Auto) 3 % (0-10); Hematocrit 39.8 % (36.0-46.0); Hemoglobin 13.2 g/dL (12.0-16.0); Immature Granulocytes Auto 0.02 Thou/mm3 (0.00-0.00); Lymphocytes # (Auto) 1.6 Thou/mm3 (1.0-4.8); Lymphocytes % (Auto) 19 % (10-50); Mean Corpuscular HGB Conc 33.2 g/dl (31.0-37.0); Mean Corpuscular Hemoglobin 28.4 pg (25.0-35.0); Mean Corpuscular Volume 86 fL (80-100); Monocytes # (Auto) 0.6 Thou/mm3 (0.0-0.8); Monocytes % (Auto) 8 % (0-12); Neutrophils # (Auto) 5.8 Thou/mm3 (1.8-7.7); Neutrophils % (Auto) 69 % (37-80); Nucleated Red Blood Cell # 0.00 Thou/mm3 (0.00-0.00); Nucleated Red Blood Cell % 0 /100 WBC (0); Platelet Count 312 Thou/mm3 (140-440); RDW Standard Deviation 41.5 fL (36.4-46.3); Red Blood Count 4.65 Miln/mm3 (4.00-5.20); White Blood Count 8.4 Thou/mm3 (3.6-11.0)
[2025-08-03 14:57] LABS: Collection Type, Urine Clean Catch
[2025-08-03 15:07] LABS: Bacteria,Urine 3+; Bilirubin,Urine Negative (Negative); Blood,Urine Negative (Negative); Color,Urine Lt-Yellow (Lt Yel-Yel); Glucose, Urine Negative (Negative); Ketones,Urine Negative (Negative); Leukocyte Esterase,Urine Positive (Negative); Nitrite,Urine Negative (Negative); PH,Urine 5.5 (5.0-7.0); Protein,Urine Trace (Neg - Trace); RBC,Urine 5 /hpf (0-3); Specific Gravity,Urine 1.012 (1.001-1.035); Squamous Epithelial Cell,Urine 27 /hpf (0-5); Urobilinogen,Urine Negative mg/dL (0.0-1.0); WBC,Urine 237 /hpf (0-5)
[2025-08-03 15:10] LABS: Clarity,Urine Hazy (Clear/Hazy)
[2025-08-03 15:12] LABS: Alanine Aminotransferase 8 U/L (10-49); Albumin, Serum 5.0 gm/dL (3.4-4.8); Anion Gap 9 (7-16); Aspartate Amino Transferase 19 U/L (0-34); BUN/Creatinine Ratio 16 Ratio (12-20); Bilirubin,Total 0.6 mg/dL (0.3-1.2); Blood Urea Nitrogen 22 mg/dL (9-23); Calcium 9.9 mg/dL (8.3-10.6); Calcium (Corrected) 9.9 mg/dL (8.5-10.1); Carbon Dioxide 30.5 mMol/L (20.0-31.0); Chloride 100 mMol/L (98-107); Creatinine (Component) 1.4 mg/dL (0.6-1.3); Estimated Creatinine Clearance 39.7 mL/min (>60); Globulin 2.5 gm/dL (2.3-3.5); Glucose 173 mg/dL (74-106); Osmolality,Calculated 284 (275-295); Potassium 4.1 mMol/L (3.4-5.1); Sodium 139 mMol/L (136-145); Total Protein 7.5 gm/dL (5.7-8.2); eGFR 39 See Note
[2025-08-03 15:13] LABS: Albumin/Globulin Ratio 2.0 (1.2-2.2); Alkaline Phosphatase 115 U/L (46-116); Lipase 40 U/L (12-53)
--- NOTE | 2025-08-03 15:50 | PD.EDRME ---
Rapid Medical Screening Exam E Arrival date/time: 08/03/25 13:42 75-year-old female with a history of hypertension, chronic back pain, type 2 diabetes, hypothyroidism, hyperlipidemia, presents to the emergency room with a chief complaint of left CVA tenderness that radiates down to the left abdomen x 2 days I have greeted and performed a focused initial assessment of this patient. A comprehensive ED assessment and evaluation of the patient, analysis of all test results, and completion of the medical decision making process will be conducted by additional ED providers. Chief Complaint: Back Pain/Injury Time Seen by Provider: 08/03/25 14:20 Vital signs: Vital Signs Temperature 98.1 F 08/03/25 14:08 Pulse Rate 75 08/03/25 14:08 Respiratory Rate 20 08/03/25 14:08 Blood Pressure 170/78 H 08/03/25 14:08 Pulse Oximetry (%) 95 08/03/25 14:08 Oxygen Delivery Method Room Air 08/03/25 14:08 Vital signs reviewed by provider: Yes Exam: Left CVA tenderness with palpation Tenderness to the left lower quadrant of the abdomen Clinical Impression: Renal calculi/ureteral calculi/pyelonephritis/UTI/back pain
--- NOTE | 2025-08-03 16:35 | PD.EDADULT ---
ED General RME/HPI General Chief complaint: Back Pain/Injury Stated complaint: LEFT FLANK PAIN, N/V Time Seen by Provider: 08/03/25 14:20 Arrival date/time: 08/03/25 13:42 CC: Left flank pain HPI ongoing for 1 month. Patient states she was diagnosed with a UTI at the beginning of the month and given antibiotics, from her PCP, without relief. Patient states do not get me tramadol because it does not work. Patient denies fever but is complaining of intermittent urinary incontinence. Patient is complaining of nausea without vomiting no diarrhea or constipation. RME / HPI RME / HPI narrative: 08/03/25 13:42 75-year-old female with a history of hypertension, chronic back pain, type 2 diabetes, hypothyroidism, hyperlipidemia, presents to the emergency room with a chief complaint of left CVA tenderness that radiates down to the left abdomen x 2 days I have greeted and performed a focused initial assessment of this patient. A comprehensive ED assessment and evaluation of the patient, analysis of all test results, and completion of the medical decision making process will be conducted by additional ED providers. Exam: Left CVA tenderness with palpation Tenderness to the left lower quadrant of the abdomen Impression: Renal calculi/ureteral calculi/pyelonephritis/UTI/back pain Related Data Home Medications ?Medication ?Instructions ?Recorded ?Confirmed mirabegron 50 mg tablet,extended 50 mg PO QDAY BLADDER CONTROL ##0 05/12/15 02/15/25 release 24 hr (Myrbetriq) simvastatin 20 mg tablet (Zocor) 20 mg PO QDAY High Cholesterol #0 05/12/15 02/15/25 tabs duloxetine 60 mg capsule,delayed 60 mg PO BID 11/26/17 02/15/25 release losartan 100 1 tab PO QDAY 11/26/17 02/15/25 mg-hydrochlorothiazide 12.5 mg tablet amlodipine 2.5 mg tablet 5 mg PO QDAY 08/09/23 02/15/25 aripiprazole 2 mg tablet 2 mg PO QDAY 08/09/23 02/15/25 carvedilol 12.5 mg tablet 12.5 mg PO BID 08/09/23 02/15/25 clopidogrel 75 mg tablet 75 mg PO QDAY 08/09/23 02/15/25 glipizide 5 mg tablet 5 mg PO BID 08/09/23 02/15/25 hydroxyzine HCl 25 mg tablet 25 mg PO HS PRN Anxiety 08/09/23 02/15/25 insulin glargine 100 unit/mL (3 20 unit subcut HS 08/09/23 02/15/25 mL) subcutaneous pen (Lantus Solostar U-100 Insulin) levothyroxine 175 mcg tablet 175 mcg PO QDAY 08/09/23 02/15/25 pantoprazole 40 mg tablet,delayed 40 mg PO QDAY 08/09/23 02/15/25 release Previous Rx's ?Medication ?Instructions ?Recorded hydrocodone 5 mg-acetaminophen 325 1 tab PO BID PRN pain #6 tabs 07/16/25 mg tablet ciprofloxacin HCl 500 mg tablet 500 mg PO BID #14 tabs 08/03/25 (Cipro) Allergies Allergy/AdvReac Type Severity Reaction Status Date / Time aspirin Allergy Severe HIVES, Verified 07/16/25 11:34 SWELLING Review of Systems Review of Systems Narrative Review of Systems: GEN: No fever, no chills, no weight loss EYES: No discharge, no visual changes, no pain HEENT: No ear pain, no congestion, no sore throat PULM: No shortness of breath, no cough, no congestion CV: No chest pain, no dyspnea on exertion, no palpitations GI: No nausea, no vomiting, no diarrhea, no pain, no constipation : No frequency, no urgency, no dysuria MUSC/SKEL: No joint pain, no back pain SKIN: No rash PSYCH: No hallucinations, no depression HEME/LYMPH: No easy bleeding or bruising tendencies NEURO: No weakness, no headache Past Medical History Past Medical History NEUROLOGIC: Positive Neurological Disorders, Dementia, Migraine and Head Trauma; Negative Seizures CARDIAC: Positive Cardiac Disorders, Atherosclerotic Heart Disease, Hypercholesterolemia and Hypertension; Negative Congestive Heart Failure RESPIRATORY: Positive Asthma; Negative Chronic Obstructive Pulmonary Disease (COPD) GASTROINTESTINAL: Positive Gastrointestinal Disorders and Gall Bladder Disease; Negative Hepatitis or Colorectal Cancer GENITOURINARY: Positive Genitourinary Disorders; Negative Renal Disease REPRODUCTIVE: Positive Previous Pregnancies; Negative Breast Cancer, Endometriosis, Pelvic Inflammatory Disease or Uterine Prolapse MUSCULOSKELETAL: Positive Musculoskeletal Disorders, Arthritis, Scoliosis, Carpal Tunnel Syndrome, Fibromyalgia and Degenerative Joint Disease; Negative Bone Cancer ENT: Positive Cataracts, Glaucoma and Head Trauma ENDOCRINE: Positive Endocrine Disorders, Diabetes Mellitus Type 2, Hyperthyroidism and Hypothyroidism; Negative Diabetes Mellitus Type 1 or Graves' Disease HEMATOLOGIC: Negative Blood Disorders, Anemia, Sickle Cell Disease or Clotting Problems PSYCHO/SOCIAL: Positive Depression OTHER HISTORY: Positive Shingles, Chicken Pox and Measles; Negative Hospitalization, Autoimmune Disease, Down Syndrome, Developmental Delay, Falls, Blood Transfusions, Blood Transfusion Reaction, Anesthesia Reactions, Organ Transplant, Chemotherapy, Radiation Therapy, Hyperbaric Therapy, MRSA, VRSA, Vancomycin-Resistant Enterococci, Mumps, Clostridium Difficile, Cancer, Breast Cancer, Cervical Cancer, Colorectal Cancer, Lung Cancer or Ovarian Cancer Family History FAMILY HISTORY: Positive Family Psychiatric Problems, Family Respiratory Disorders, Family Cardiac Disorders and Family Cancer; Negative Family Gastrointestinal Problems, Family Surgery or Family Anesthesia Reaction Surgical History SURGICAL: Positive Cardiac Surgery, Angiogram, Endocrine Surgery, Thyroidectomy, Abdominal Surgery, Joint Replacement and Tubal Ligation; Negative Ear Surgery, Neurologic Surgery, Brain Shunt or Organ Transplant Social History SMOKING STATUS: Never smoker SUBSTANCE USE: does not use ED Exam Narrative Physical exam: [General: Obese in mild discomfort but not in any acute distress Head normocephalic HEENT: Within acceptable limits Neck is supple nontender Chest equal chest rise nontender to palpation Respiratory: Clear to auscultation no wheezes crackles or rubs CV: Rate rhythm is regular no murmurs rubs or clicks Abdomen is distended secondary to body habitus soft nontender no masses positive bowel sounds all 4 quadrants Back: Mild left CVA tenderness no right CVA tenderness, no spinous process tenderness from cervical spine thoracic and lumbar spine Skin: Intact no petechiae rash induration ulceration or crepitus Extremities: Moving all extremity against resistance cap refill less than 2 seconds neurosensory intact Neuro: Awake alert oriented x3 Glascow coma 15 no focal deficits] Course Quality Measures none Orders Category Date Time Status Saline [Insert IV] NOW Care 08/03/25 16:[address] abdomen pelvis wo con Stat Exams 08/03/25 14:19 Completed CBC Stat Lab 08/03/25 14:33 Completed CMP [Comprehensive Metabolic Panel] Stat Lab 08/03/25 14:33 Completed Lipase Stat Lab 08/03/25 14:33 Completed UA [Urinalysis] Stat Lab 08/03/25 14:50 Completed Urine Culture Stat Lab 08/03/25 14:50 Received Ketorolac Inj [Toradol Inj] Med 08/03/25 14:19 Discontinued 30 mg IM X1 ONE Morphine* Inj Med 08/03/25 16:33 Discontinued 4 mg IVP X1 ONE Ondansetron Inj [Zofran Inj] Med 08/03/25 16:33 Discontinued 4 mg IVP X1 ONE Sodium Chloride 0.9% 1000 ml [Ns] 1,000 ml Med 08/03/25 16:33 Discontinued IV 999 mls/hr cefTRIAXone/D5w 1gm IV premix [Rocephin/D5w 1gm IV Med 08/03/25 16:34 Discontinued premix] 1 gm in 50 ml IV X1 Vital Signs Vital signs: Vital Signs Temperature 98.1 F 08/03/25 14:08 Pulse Rate 75 08/03/25 14:08 Respiratory Rate 20 08/03/25 14:08 Blood Pressure 170/78 H 08/03/25 14:08 Pulse Oximetry (%) 95 08/03/25 14:08 Oxygen Delivery Method Room Air 08/03/25 14:08 Discharge Plan Plan Patient Disposition: HOME (Self Care) Patient condition on transfer: Stable Prescriptions/Referrals Prescriptions/Med Rec: New ciprofloxacin HCl [Cipro] 500 mg tablet 500 mg PO BID Qty: 14 0RF No Action simvastatin [Zocor] 20 MG tablet 20 mg PO QDAY Qty: 0 mirabegron [Myrbetriq] 50 MG tablet extended release 24 hr 50 mg PO QDAY Qty: 0 duloxetine 60 mg Capsule,Delayed Release(Dr/Ec) 60 mg PO BID losartan-hydrochlorothiazide 100-12.5 mg Tablet 1 tab PO QDAY levothyroxine 175 mcg tablet 175 mcg PO QDAY carvedilol 12.5 mg tablet 12.5 mg PO BID amlodipine 2.5 mg tablet 5 mg PO QDAY clopidogrel 75 mg tablet 75 mg PO QDAY pantoprazole 40 mg tablet,delayed release (DR/EC) 40 mg PO QDAY hydroxyzine HCl 25 mg tablet 25 mg PO HS PRN (Reason: Anxiety) Patient Comments: TAKE 1 TABLET BY MOUTH AT BEDTIME NEEDED FOR 90 DAYS glipizide 5 mg tablet 5 mg PO BID Patient Comments: TAKE 1 TABLET BY MOUTH TWICE A DAY aripiprazole 2 mg tablet 2 mg PO QDAY insulin glargine [Lantus Solostar U-100 Insulin] 100 unit/mL (3 mL) insulin pen 20 unit SUBCUT HS hydrocodone-acetaminophen 5-325 mg tablet 1 tab PO BID MDD 10mg PRN (Reason: pain) Qty: 6 0RF Referrals: Marine Astudillo LEGAL SERVICE SPECIALIST [Primary Care Provider] - In 1 week Problem List Clinical Impression: Flank pain, UTI (urinary tract infection) Patient/Caregiver Discharge Instructions Education Materials: ED CYSTITIS Female Adult Additional Instructions: Take the medications as prescribed follow-up in the next 2 days with your primary care doctor if there is worsening symptoms return the emergency room for reevaluation. Print Language: Serbian Stand Alone Forms: [employer] Award Info., Work/School Release, Patient Portal Info Letter PA/COLLEEN Supervising Physician PA/COLLEEN Supervising Physician: Angel Bolton ENP [facility] Clinical Information Provided by: patient Medical Records reviewed [facility] Meds/Rx considered, not ordered None Labs/Rad/Tests considered, not ordered None Chronic Illness/Social Conditions Explain: Diabetes hypertension hyperlipidemia EKG EKG not done Labs Labs: interpreted by me Lab(s) Interpretation(s): CBC she has no acute leukocytosis anemia thrombocytopenia CMP shows no significant electrolyte imbalances the creatinine is 1.4 glucose at 173. No transaminitis or T. bili elevation Urine is leukocyte esterase positive with 237 whites 3+ bacteria nitrite negative. 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 Medication Administration(s) Medication Administration History Discontinued Medications Sodium Chloride (Ns) 1,000 mls @ 999 mls/hr IV .Q1H1M ONE Stop: 08/03/25 17:33 Last Infusion: 08/03/25 18:01 Dose: Infused Documented By: Admin: 08/03/25 17:11 Dose: 999 mls/hr Documented By: JOVON Ceftriaxone Sodium/Dextrose (Rocephin/D5w 1gm Iv Premix) 1 gm in 50 mls @ 100 mls/hr IV X1 ONE Stop: 08/03/25 17:03 Last Infusion: 08/03/25 18:01 Dose: Infused Documented By: Admin: 08/03/25 17:10 Dose: 100 mls/hr Documented By: JOVON Ketorolac Tromethamine (Ketorolac Inj 60 Mg/2 Ml Vial) 30 mg IM X1 ONE; Protocol Stop: 08/03/25 14:20 Last Admin: 08/03/25 14:35 Dose: 30 mg Documented By: SADIA Morphine Sulfate (Morphine Sulf Inj 4 Mg/Ml Vial) 4 mg IVP X1 ONE Stop: 08/03/25 16:34 Last Admin: 08/03/25 17:10 Dose: 4 mg Documented By: JOVON Ondansetron HCl (Ondansetron Inj 2 Mg/Ml Inj 2 Ml) 4 mg IVP X1 ONE; Protocol Stop: 08/03/25 16:34 Last Admin: 08/03/25 16:48 Dose: 4 mg Documented By: JOVON
[2025-08-03] MEDS: ONDANSETRON INJ 2 MG/ML INJ 2 ML 4 MG IVP (16:48)
[2025-08-03] MEDS: MORPHINE SULF INJ 4 MG/ML VIAL IVP (17:10)
[2025-08-03] MEDS: cefTRIAXone/D5w 1gm IV premix 1 GM/50 ML BAG IV (17:10)
[2025-08-03] MEDS: SODIUM CHLORIDE 0.9% 1000 ML 1,000 ML 999 ML IV (17:11)
[2025-08-03 17:19] VITALS: BP 170/106; PULSE 77; RESP 22; O2SAT 94
== END 2025-08-03 18:35 | disposition home or self-care (01) ==
PROVIDERS: Nurse Practitioner Family; Emergency Provider Emergency Medicine; PCP Nurse Practitioner Family
DX: N39.0 Urinary tract infection, site not specified (principal); E03.9 Hypothyroidism, unspecified; E11.9 Type 2 diabetes mellitus without complications; E78.5 Hyperlipidemia, unspecified; G89.29 Other chronic pain; I10 Essential (primary) hypertension; Z79.84 Long term (current) use of oral hypoglycemic drugs
CPT/HCPCS: 36415; 74176; 80053; 81001; 83690; 85025; 87077; 87086; 87186; 96365; 96372; 96375; 99284; J0696; J1885; J2270; J2405; J7030

== ENCOUNTER 2025-08-13 12:28 | Observation (INO) | payer OTHER, MEDICAID, SELFPAY ==
[2025-08-13] VITALS (12 sets, daily range): BP systolic 150–186; BP diastolic 67–80; PULSE 56–88; RESP 16–95; TEMP 36.4–36.7; O2SAT 92–98; BMI 33.0
--- NOTE | 2025-08-13 12:39 | EKG_ITS ---
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1950 Requested By: Naresh Perez Order Number: [id number] Reading MD: Naresh Perez Measurements Intervals Muse Rate: 57 P: 41 WV: 244 QRS: -40 QRSD: 113 T: 69 QT: 476 QTc: 464 Interpretive Statements SINUS BRADYCARDIA WITH FIRST DEGREE AV BLOCK LEFT AXIS DEVIATION [QRS AXIS < -30] VOLTAGE CRITERIA FOR LVH [MEETS CRITERIA IN ONE OF: R(aVL), S(V1), R(V5), R(V5/V6)+S(V1)] POSSIBLE SEPTAL MYOCARDIAL INFARCTION , PROBABLY OLD [30 ms Q WAVE IN V1/V2] Compared to ECG 03/08/2025 13:45:58 First degree AV block now present Myocardial infarct finding now present /store/S0/[id number]/[id number].pdf
[2025-08-13] MEDS: FAMOTIDINE INJ 10 MG/ML VIAL 2 ML 20 MG IVP (12:50)
[2025-08-13] MEDS: SODIUM CHLORIDE 0.9% 1000 ML 1,000 ML 500 ML IV (12:51)
[2025-08-13] MEDS: ONDANSETRON INJ 2 MG/ML INJ 2 ML 4 MG IVP (12:51)
--- NOTE | 2025-08-13 13:35 | XR_ITS ---
Examination: CT brain head without contrast. 2-D sagittal coronal reconstructions Date and time of exam: August 13, 2025, 1456 hours INDICATIONS: Seizure today with syncopal episode CTDI: vol (mGy): 49.8 DLP: (mGycm): 1017 Technique: Multiple CT axial sections of the brain have been obtained, 5 mm slice thickness. Contrast has not been administered. 2-D sagittal, coronal reconstructions have been obtained Low dose protocols were performed. One or more of the following dose reduction techniques were used; automated exposure control, adjustment of the mA and/or KV according to patient size, use of iterative reconstruction technique. Findings: No significant ventricular enlargement. Intra-axial or extra-axial hemorrhage density is not seen. No mass effect or midline shift Basal cisterns are not remarkable. Fourth ventricle is midline. Cranial vault intact. Impression: Negative for acute hemorrhage, mass effect or midline shift Advise clinical correlation and follow-up accordingly
[2025-08-13] MEDS: SODIUM CHLORIDE 0.9% 1000 ML 1,000 ML 999 ML IV (13:36)
[2025-08-13 13:37] LABS: Basophils # (Auto) 0.2 Thou/mm3 (0.0-0.2); Basophils % (Auto) 2 % (0-2.5); Eosinophils # (Auto) 0.6 Thou/mm3 (0.0-0.5); Eosinophils % (Auto) 9 % (0-10); Hematocrit 39.7 % (36.0-46.0); Hemoglobin 13.2 g/dL (12.0-16.0); Immature Granulocytes Auto 0.01 Thou/mm3 (0.00-0.00); Lymphocytes # (Auto) 2.2 Thou/mm3 (1.0-4.8); Lymphocytes % (Auto) 34 % (10-50); Mean Corpuscular HGB Conc 33.2 g/dl (31.0-37.0); Mean Corpuscular Hemoglobin 28.8 pg (25.0-35.0); Mean Corpuscular Volume 87 fL (80-100); Monocytes # (Auto) 0.6 Thou/mm3 (0.0-0.8); Monocytes % (Auto) 10 % (0-12); Neutrophils # (Auto) 2.9 Thou/mm3 (1.8-7.7); Neutrophils % (Auto) 44 % (37-80); Nucleated Red Blood Cell # 0.00 Thou/mm3 (0.00-0.00); Nucleated Red Blood Cell % 0 /100 WBC (0); Platelet Count 284 Thou/mm3 (140-440); RDW Standard Deviation 42.5 fL (36.4-46.3); Red Blood Count 4.59 Miln/mm3 (4.00-5.20); White Blood Count 6.5 Thou/mm3 (3.6-11.0)
--- NOTE | 2025-08-13 13:39 | EKG_ITS ---
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1950 Requested By: Naresh Perez Order Number: [id number] Reading MD: Naresh Perez Measurements Intervals Marcell Rate: 58 P: 31 MI: 265 QRS: -38 QRSD: 118 T: 65 QT: 476 QTc: 468 Interpretive Statements SINUS BRADYCARDIA WITH FIRST DEGREE AV BLOCK LEFT AXIS DEVIATION [QRS AXIS < -30] LEFT VENTRICULAR HYPERTROPHY AND ST-T CHANGE [VOLTAGE CRITERIA PLUS ST/T ABNORMALITY] POSSIBLE SEPTAL MYOCARDIAL INFARCTION , PROBABLY OLD [30 ms Q WAVE IN V1/V2] POSSIBLE LATERAL MYOCARDIAL INFARCTION , PROBABLY OLD [30 ms Q WAVE IN I/aVL/V5/V6] Compared to ECG 08/13/2025 12:56:16 ST (T wave) deviation now present Myocardial infarct finding still present /store/S0/[id number]/[id number].pdf
--- NOTE | 2025-08-13 13:40 | PC.NURSE ---
PT HAD A SYNCOPE EPISODE WITNESSED BY TECH. PTS IS AT BEDSIDE THAT THIS IS NEW FOR PATIENT. VITAL SIGNS WERE TAKEN HEART RATE 60 BPM, BP OF 199/74, 93%, AND 14 RR. BLOOD SUGAR 187. PROVIDER AT BEDSIDE. VERBAL ORDER OF 1L OF NS OPEN WIDE THROUGH IV. PT IS LETHERAGIC. AT BEDSIDE
[2025-08-13 13:50] LABS: INR 1.1 (0.9-1.3); Partial Thromboplastin Time 26.9 Seconds (22.0-36.0); Prothrombin Time 11.3 Seconds (9.0-12.2)
[2025-08-13 13:57] LABS: Alanine Aminotransferase 12 U/L (10-49); Albumin, Serum 4.9 gm/dL (3.4-4.8); Albumin/Globulin Ratio 2.0 (1.2-2.2); Alkaline Phosphatase 93 U/L (46-116); Anion Gap 12 (7-16); Aspartate Amino Transferase 23 U/L (0-34); BUN/Creatinine Ratio 16 Ratio (12-20); Bilirubin,Total 0.6 mg/dL (0.3-1.2); Blood Urea Nitrogen 18 mg/dL (9-23); Calcium 9.8 mg/dL (8.3-10.6); Calcium (Corrected) 9.8 mg/dL (8.5-10.1); Carbon Dioxide 28.5 mMol/L (20.0-31.0); Chloride 102 mMol/L (98-107); Creatinine (Component) 1.1 mg/dL (0.6-1.3); Estimated Creatinine Clearance 50.8 mL/min (>60); Globulin 2.5 gm/dL (2.3-3.5); Glucose 168 mg/dL (74-106); Osmolality,Calculated 289 (275-295); Potassium 3.8 mMol/L (3.4-5.1); Sodium 142 mMol/L (136-145); Total Protein 7.4 gm/dL (5.7-8.2); Troponin I < 0.020 ng/mL (0.0-0.045); eGFR 52 See Note
--- NOTE | 2025-08-13 13:59 | PD.EDWEAK ---
ED Weakness RME/HPI General Chief complaint: Back Pain/Injury Stated complaint: BACK PAIN Time Seen by Provider: 08/13/25 12:38 Arrival date/time: 08/13/25 12:28 Limitations: no limitations RME / HPI RME / HPI Narrative: 75 year old female with history of dementia, hypertension, diabetes, GERD, kidney stones presents to the ED BIBA from PCP office for near syncopal episode today. Per medics, patient stated she had consulted her PCP for severe back pain and while waiting felt very faint and near syncope. States she next recalled waking with EMS personnel with her. Per medics, patient had an episode of vomiting en route and given 4mg po Zofran. In the ED, patient mentioned the pain began yesterday and has not eaten since yesterday noon due to decreased appetite, nausea, and back pain. Denies fevers, chills, chest pain, cough, shortness of breath, diarrhea, constipation, or urinary symptoms. Denies any history of similar symptoms. Related Data Home Medications ?Medication ?Instructions ?Recorded ?Confirmed mirabegron 50 mg tablet,extended 50 mg PO QDAY BLADDER CONTROL ##0 05/12/15 02/15/25 release 24 hr (Myrbetriq) simvastatin 20 mg tablet (Zocor) 20 mg PO QDAY High Cholesterol #0 05/12/15 02/15/25 tabs duloxetine 60 mg capsule,delayed 60 mg PO BID 11/26/17 02/15/25 release losartan 100 1 tab PO QDAY 11/26/17 02/15/25 mg-hydrochlorothiazide 12.5 mg tablet amlodipine 2.5 mg tablet 5 mg PO QDAY 08/09/23 02/15/25 aripiprazole 2 mg tablet 2 mg PO QDAY 08/09/23 02/15/25 carvedilol 12.5 mg tablet 12.5 mg PO BID 08/09/23 02/15/25 clopidogrel 75 mg tablet 75 mg PO QDAY 08/09/23 02/15/25 glipizide 5 mg tablet 5 mg PO BID 08/09/23 02/15/25 hydroxyzine HCl 25 mg tablet 25 mg PO HS PRN Anxiety 08/09/23 02/15/25 insulin glargine 100 unit/mL (3 20 unit subcut HS 08/09/23 02/15/25 mL) subcutaneous pen (Lantus Solostar U-100 Insulin) levothyroxine 175 mcg tablet 175 mcg PO QDAY 08/09/23 02/15/25 pantoprazole 40 mg tablet,delayed 40 mg PO QDAY 08/09/23 02/15/25 release Previous Rx's ?Medication ?Instructions ?Recorded hydrocodone 5 mg-acetaminophen 325 1 tab PO BID PRN pain #6 tabs 07/16/25 mg tablet ciprofloxacin HCl 500 mg tablet 500 mg PO BID #14 tabs 08/03/25 (Cipro) Allergies Allergy/AdvReac Type Severity Reaction Status Date / Time aspirin Allergy Severe HIVES, Verified 08/13/25 12:36 SWELLING Review of Systems Review of Systems Systems Reviewed: All systems reviewed, normal except as documented Past Medical History Past Medical History NEUROLOGIC: Positive Neurological Disorders, Dementia, Migraine and Head Trauma CARDIAC: Positive Cardiac Disorders, Atherosclerotic Heart Disease, Hypercholesterolemia and Hypertension RESPIRATORY: Positive Asthma GASTROINTESTINAL: Positive Gastrointestinal Disorders and Gall Bladder Disease GENITOURINARY: Positive Genitourinary Disorders REPRODUCTIVE: Positive Previous Pregnancies MUSCULOSKELETAL: Positive Musculoskeletal Disorders, Arthritis, Scoliosis, Carpal Tunnel Syndrome, Fibromyalgia and Degenerative Joint Disease ENT: Positive Cataracts, Glaucoma and Head Trauma ENDOCRINE: Positive Endocrine Disorders, Diabetes Mellitus Type 2, Hyperthyroidism and Hypothyroidism PSYCHO/SOCIAL: Positive Depression OTHER HISTORY: Positive Shingles, Chicken Pox and Measles Family History FAMILY HISTORY: Positive Family Psychiatric Problems, Family Respiratory Disorders, Family Cardiac Disorders and Family Cancer Surgical History SURGICAL: Positive Cardiac Surgery, Angiogram, Endocrine Surgery, Thyroidectomy, Abdominal Surgery, Joint Replacement and Tubal Ligation Social History SMOKING STATUS: Never smoker SUBSTANCE USE: does not use ED Exam General Limitations: Present no limitations General appearance: Present alert and other (diaphoretic, appears ill) Head Head exam: Present atraumatic Eye Eye exam: Present normal appearance, PERRL and EOMI ENT ENT exam: Present normal exam, normal oropharynx and mucous membranes moist Neck Neck exam: Present normal inspection, full ROM, trachea midline and other (carotids 1+ no bruits ) Chest Chest inspection: Present normal inspection and symmetric chest wall rise Respiratory Respiratory exam: Present normal lung sounds bilaterally Cardiovascular Cardiovascular exam: Present regular rate, normal rhythm and normal heart sounds Abdominal Exam Abdominal exam: Present soft and normal bowel sounds Extremities Exam Extremities exam: Present normal inspection and full ROM Neurological Exam Neurological exam: Present alert, oriented X3 and CN II-XII intact Psychiatric Psychiatric exam: Present normal affect and normal mood Skin Skin exam: Present warm, intact, normal color and diaphoresis Course Quality Measures none Orders Category Date Time Status Lumber Tailer STAT Care 08/13/25 12:39 Active EKG (ED ONLY) *Do not use* NOW Care 08/13/25 12:39 Completed EKG (ED ONLY) *Do not use* NOW Care 08/13/25 13:39 Completed Insert IV STAT Care 08/13/25 12:39 Active Straight [In and Out Catheter] X1 Care 08/13/25 14:11 Completed Consult to Neurology / Tele-Neurology Stat Cons 08/13/25 15:[address] head/brain wo con Stat Exams 08/13/25 13:35 Completed CXRP [XR chest 1V portable] Stat Exams 08/13/25 15:39 Completed EKG (ED Only) Stat Exams 08/13/25 12:39 Draft EKG (ED Only) Stat Exams 08/13/25 13:39 Ordered CBC Stat Lab 08/13/25 12:40 Completed Comprehensive Metabolic Panel Stat Lab 08/13/25 12:40 Completed Partial Thromboplastin Time Stat Lab 08/13/25 12:40 Completed Prothrombin Time with INR Stat Lab 08/13/25 12:40 Completed Troponin I Stat Lab 08/13/25 12:40 Completed Urinalysis, C/S if Indicated Stat Lab 08/13/25 14:10 Completed Famotidine Inj [Pepcid Inj] Med 08/13/25 12:39 Discontinued 20 mg IVP X1 ONE Ondansetron Inj [Zofran Inj] Med 08/13/25 12:39 Discontinued 4 mg IVP X1 ONE Sodium Chloride 0.9% 1000 ml [Ns] 1,000 ml Med 08/13/25 12:39 Discontinued IV 500 mls/hr Sodium Chloride 0.9% 1000 ml [Ns] 1,000 ml Med 08/13/25 14:00 Discontinued IV 999 mls/hr levETIRAcetam INJ [Keppra Inj] Med 08/13/25 13:36 Discontinued 500 mg IVP X1 ONE Oxygen Delivery NOW RT 08/13/25 12:39 Active Vital Signs Vital signs: Vital Signs Temperature 97.5 F 08/13/25 12:33 Pulse Rate 56 L 08/13/25 12:33 Respiratory Rate 19 08/13/25 12:33 Blood Pressure 186/77 H 08/13/25 12:33 Pulse Oximetry (%) 92 L 08/13/25 12:33 Oxygen Delivery Method Room Air 08/13/25 12:33 Pulse ox is 92% on room air which is adequate. Weakness MDM Narrative MDM Narrative:: I, Joan Rollins, am scribing for and in the presence of Dr. Chi. 1330p: Patient in the ED had an episode of unresponsiveness lasting < 1 minute, with eyes rolled up, and a blank stare. BS 187. Started on second liter of IV fluid bolus. Will order head CT and consult with teleneurology for possible seizure. 1633p: I spoke with teleneurologist Dr. Nichols. She states the episodes is less likely a seizure and sounds more like cards related syncope. She recommends for additional syncope work up, MRI brain wo contrast, CTA head/neck, routine EEG. Does not recommend Keppra. 1658p: I spoke with hospitalist team B for admission. Discussed patients PMHx, HPI, ED course, exam findings, labs, and radiology results. The hospitalist agree to accept the patient for admission. 1700p: I spoke with boilers and pressure vessels inspector Dr. Gomes. Discussed patients PMHx, HPI, ED course, exam findings, labs, and radiology results. He agrees to consult. Patient data External records reviewed:: [facility] previous records Clinical information provided by:: patient Social determinants that could affect healthcare access:: none Patient has the following chronic illnesses:: dementia, hypertension, diabetes, GERD How is presenting disease/condition affected by chronic disease/condition?: exacerbated by Evaluation data The following diagnostics were reviewed and interpreted by me:: lab results, radiology exam(s) and EKG tracing(s) (EKG @ 12:56p, interpreted by me, sinus bradycardia with first degree AV block rate 57, left axis deviation, no STEMI. EKG @ 13:53p, interpreted by me, sinus bradycardia with first degree AV block, rate 58, left axis deviation, no change from EKG at 12:56p.) Lab and/or radiology exams considered but not ordered:: None Interpretation Summary: Ordering Physician: Naresh Chi MD Date of Service: 08/13/25 Procedure(s): CT head/brain wo con Accession Number(s): [id number] cc: Marine Astudillo NP; Naresh Chi MD; Sincere Grey MD~ Examination: CT brain head without contrast. 2-D sagittal coronal reconstructions Date and time of exam: August 13, 2025, 1456 hours INDICATIONS: Seizure today with syncopal episode CTDI: vol (mGy): 49.8 DLP: (mGycm): 1017 Technique: Multiple CT axial sections of the brain have been obtained, 5 mm slice thickness. Contrast has not been administered. 2-D sagittal, coronal reconstructions have been obtained Low dose protocols were performed. One or more of the following dose reduction techniques were used; automated exposure control, adjustment of the mA and/or KV according to patient size, use of iterative reconstruction technique. Findings: No significant ventricular enlargement. Intra-axial or extra-axial hemorrhage density is not seen. No mass effect or midline shift Basal cisterns are not remarkable. Fourth ventricle is midline. Cranial vault intact. Impression: Negative for acute hemorrhage, mass effect or midline shift Advise clinical correlation and follow-up accordingly Dictated By: Sincere Grey MD Signed By: <Electronically signed by Sincere Grey MD in OV> 08/13/25 1516 Ordering Physician: Naresh Chi MD Date of Service: 08/13/25 Procedure(s): XR chest 1V portable Accession Number(s): [id number] cc: Marine Astudillo NP; Naresh Chi MD; Sincere Grey MD~ EXAMINATION: AP chest single view TECHNIQUE: AP portable semiupright chest single view Date and time: August 13, 2023, 1549 hours, comparison March 08, 2025 INDICATIONS: Shortness of breath today. FINDINGS: Normal heart size No pneumonia or pulmonary edema Prominent osteopenia IMPRESSION: No active disease Dictated By: Sincere Grey MD Signed By: <Electronically signed by Sincere Grey MD in OV> 08/13/25 8307 Medications / Prescriptions Medications or Prescriptions considered but not ordered:: None Medication administrations:: Medication Administration History Discontinued Medications Famotidine (Famotidine Inj 10 Mg/Ml Vial 2 Ml) 20 mg IVP X1 ONE Stop: 08/13/25 12:40 Last Admin: 08/13/25 12:50 Dose: 20 mg Documented By: AGUSTÍN Sodium Chloride (Ns) 1,000 mls @ 500 mls/hr IV .Q2H ONE Stop: 08/13/25 14:38 Last Infusion: 08/13/25 14:51 Dose: Infused Documented By: Admin: 08/13/25 12:51 Dose: 500 mls/hr Documented By: AGUSTÍN Sodium Chloride (Ns) 1,000 mls @ 999 mls/hr IV .Q1H1M ONE Stop: 08/13/25 15:00 Last Infusion: 08/13/25 14:37 Dose: Infused Documented By: Admin: 08/13/25 13:36 Dose: 999 mls/hr Documented By: AGUSTÍN Levetiracetam (Levetiracetam Inj 100 Mg/Ml Vial 5ml) 500 mg IVP X1 ONE Stop: 08/13/25 13:37 Last Admin: 08/13/25 14:02 Dose: 500 mg Documented By: AGUSTÍN Ondansetron HCl (Ondansetron Inj 2 Mg/Ml Inj 2 Ml) 4 mg IVP X1 ONE; Protocol Stop: 08/13/25 12:40 Last Admin: 08/13/25 12:51 Dose: 4 mg Documented By: See above Consultations Consultation(s) initiated? (list below): Yes Consultation #1 (Physician, Specialty, Details): See MDM Diagnosis Weakness Differential Diagnosis: acute myocardial infarction, hypoglycemia, hypothyroidism, sepsis, dehydration and other Most likely diagnosis given after review of the tests above:: Acute syncope Acute seizure Admission Indicated Admission indicated?: indicated Admission Request Was there a request for admission?: Yes Admission Attestation Admission request attestation: Discussed case with [] from Hospitalist service regarding admission. Discussed patients ED course, exam findings, labs, and radiology results. The Hospitalist [agrees,declines] to accept the patient for admission. Disposition Plan Disposition Plan: Admit Discharge Plan Plan Patient Disposition: Admit Acute Care w/in Hospital Prescriptions/Referrals Prescriptions/Med Rec: No Action simvastatin [Zocor] 20 MG tablet 20 mg PO QDAY Qty: 0 mirabegron [Myrbetriq] 50 MG tablet extended release 24 hr 50 mg PO QDAY Qty: 0 duloxetine 60 mg Capsule,Delayed Release(Dr/Ec) 60 mg PO BID losartan-hydrochlorothiazide 100-12.5 mg Tablet 1 tab PO QDAY levothyroxine 175 mcg tablet 175 mcg PO QDAY carvedilol 12.5 mg tablet 12.5 mg PO BID amlodipine 2.5 mg tablet 5 mg PO QDAY clopidogrel 75 mg tablet 75 mg PO QDAY pantoprazole 40 mg tablet,delayed release (DR/EC) 40 mg PO QDAY hydroxyzine HCl 25 mg tablet 25 mg PO HS PRN (Reason: Anxiety) Patient Comments: TAKE 1 TABLET BY MOUTH AT BEDTIME NEEDED FOR 90 DAYS glipizide 5 mg tablet 5 mg PO BID Patient Comments: TAKE 1 TABLET BY MOUTH TWICE A DAY aripiprazole 2 mg tablet 2 mg PO QDAY insulin glargine [Lantus Solostar U-100 Insulin] 100 unit/mL (3 mL) insulin pen 20 unit SUBCUT HS hydrocodone-acetaminophen 5-325 mg tablet 1 tab PO BID MDD 10mg PRN (Reason: pain) Qty: 6 0RF ciprofloxacin HCl [Cipro] 500 mg tablet 500 mg PO BID Qty: 14 0RF Referrals: Marine Astudillo, DIRECTOR OF RESERVATIONS [Primary Care Provider] - In 1 week Problem List Clinical Impression: Syncope, Seizure Patient/Caregiver Discharge Instructions Print Language: Frisian Stand Alone Forms: [employer] Award Info., Patient Portal Info Letter
[2025-08-13] MEDS: levETIRAcetam INJ 100 MG/ML VIAL 5ML 500 MG IVP (14:02)
[2025-08-13 14:17] LABS: Collection Type, Urine Clean Catch; Squamous Epithelial Cell,Urine 0 /hpf (0-5)
[2025-08-13 14:24] LABS: Bilirubin,Urine Negative (Negative); Blood,Urine Negative (Negative); Clarity,Urine Clear (Clear/Hazy); Color,Urine Lt-Yellow (Lt Yel-Yel); Culture Indicated,Urine Not Indicated; Glucose, Urine Trace (Negative); Ketones,Urine Negative (Negative); Leukocyte Esterase,Urine Negative (Negative); Nitrite,Urine Negative (Negative); PH,Urine 6.5 (5.0-7.0); Protein,Urine Negative (Neg - Trace); RBC,Urine < 1 /hpf (0-3); Specific Gravity,Urine 1.011 (1.001-1.035); Urobilinogen,Urine Negative mg/dL (0.0-1.0); WBC,Urine 1 /hpf (0-5)
--- NOTE | 2025-08-13 15:39 | XR_ITS ---
EXAMINATION: AP chest single view TECHNIQUE: AP portable semiupright chest single view Date and time: August 13, 2023, 1549 hours, comparison March 08, 2025 INDICATIONS: Shortness of breath today. FINDINGS: Normal heart size No pneumonia or pulmonary edema Prominent osteopenia IMPRESSION: No active disease
--- NOTE | 2025-08-13 16:32 | PD.TNEURO ---
Tele Neuro Consultation Consultation Date 08/13/25 Most Recent Vital Signs Last Vital Signs Temp 97.5 F 08/13/25 16:27 Pulse 76 08/13/25 16:27 Resp 19 08/13/25 16:27 BP 150/72 H 08/13/25 16:27 Pulse Ox 92 L 08/13/25 16:27 O2 Del Method Room Air 08/13/25 12:47 Laboratory-Coagulation Panel PT 11.3 Seconds (9.0-12.2) 08/13/25 12:40 INR 1.1 (0.9-1.3) 08/13/25 12:40 APTT 26.9 Seconds (22.0-36.0) 08/13/25 12:40 Consultation Narrative [facility] TeleNeurology Consult Services Stat Consult Patient Name:???Citlalli Brenner Date of :???1950 Identification Number:??? Date of Service:???08/13/2025 15:56:47 Diagnosis:?R55 - Syncope (blackout, fainting, vasovagal attack) Impression 75-year-old female with history of HTN, HLD, hypothyroidism status post thyroidectomy, and recent hospital admission for left sided pain who presented to the ER today from PCP with complaints of syncope and altered mentation. There was also concern for possible seizure-like event while in the ED (see HPI for full description). In obtaining my history from the patient, she reported that she felt flushed and clammy before losing consciousness. Next thing she remembers was waking up with EMS surrounding her. She denies any prior history of seizures. While in the ED, she did have an episode of staring where her eyes rolled back but no gaze deviation or shaking reported. CT head obtained on arrival with no acute findings. She is somnolent now but no focal neurologic deficits appreciated. The description of the event from the patient's perspective seems more consistent with cardiac syncope. She does not have a prior history of arrhythmia. I would recommend admitting for additional syncope workup including routine EEG given the episode of staring and concern for possible seizure. No indication for AED at this time. Recommendations: Our recommendations are outlined below. Diagnostic Studies : Recommend MRI brain without contrast Routine CTA head and neck visualization of vasculature Transthoracic Echo with bubble study, if available Routine EEG Nursing Recommendations :Maintain Euglycemia Neuro checks q4hrs Orthostatic Hypotension check lying, sitting, and standing When possible avoid benzodiazepines, opioid pain medications, and anticholinergic medications Consultations :Cardiology consult DVT Prophylaxis :Choice of Primary Team Disposition :Neurology will follow Metrics: Callback Response Time: 08/13/2025 16:00:10 Primary Provider Notified of Diagnostic Impression and Management Plan on: 08/13/2025 16:26:14 CT HEAD: I personally reviewed all the CT images that were available to me and it showed:?No acute process, no hemorrhage Chief Complaint: syncope vs. seizure History of Present Illness:Patient is a 75 year old Female. Per patient history: she said she came in because she fainted at the doctor's office. She was there for a hospital follow-up and pain on her left side. Before she passed out, she was flushed and felt clammy. She then remembers waking up on the floor with the paramedics From ED provider: While in the ED, she was getting on a pure wick and the tech called in for help because she had a syncopal episode. EKG showed sinus rajat at that time. BP was slightly elevated at the time in the 150s and BGL was 180s. She got a bolus of fluids. They were concerned about seizure as well and gave her 500mg. Her eyes rolled back and she was slightly cold and clammy. Past Medical History: ?Hypertension ?Diabetes Mellitus ?Hyperlipidemia ?There is no history of Seizures Medications: No Anticoagulant use? No Antiplatelet use Reviewed EMR for current medications Allergies:? Reviewed Social History: Smoking: No Alcohol Use: No Family History: There is no family history of premature cerebrovascular disease pertinent to this consultation ROS : 14 Points Review of Systems was performed and was negative except mentioned in HPI. Past Surgical History: There Is No Surgical History Contributory To Today?s Visit Examination: BP(173/67),?Pulse(56),?Blood Glucose(163) Neuro Exam: General:?Alert,Awake, Oriented to Time, Place, Person Speech:?Fluent: Language:?Intact: Face:?Symmetric: Extraocular Movements:?Intact: Motor Exam:?No Drift:?RUE, RLE, LUE, LLE Sensation:?No reports of numbness, no nurse at bedside to assist in examination Coordination:?Intact:?VILLA TODD Spoke with :?Dr. Bolton This consult was conducted in real time using interactive audio and video technology. Patient was informed of the technology being used for this visit and agreed to proceed. Patient located in hospital and provider located at home/office setting. Patient is being evaluated for possible acute neurologic impairment and high probability of imminent or life - threatening deterioration.I spent total of 35 minutes providing care to this patient, including time for face to face visit via telemedicine, review of medical records, imaging studies and discussion of findings with providers, the patient and / or family. Dr Adina Liriano [facility] For Inpatient follow-up with [facility] physician please call [facility] at . As we are not an outpatient service for any post hospital discharge needs please contact the hospital for assistance. If you have any questions for the [facility] physicians or need to reconsult for clinical or diagnostic changes please contact us via [facility] at . Non-radiologist review of imaging performed to assist with emergent clinical decision-making. Remote physician workstations do not possess the same resolution, calibration, or diagnostic capabilities as hospital-based radiology reading stations, and formal radiologist read is necessary. Signature :?Adina Liriano
--- NOTE | 2025-08-13 16:54 | PC.NURSE ---
PT BIBA FROM A DOCTORS OFFICE FOR BACK PAIN AND NEAR SYNCOPE. DURING EMS REPORT, IT WAS UNCLEAR IF PT HAD A SYNCOPE EPISODE. PT STATES THAT ALL SHE REMEMBERS IS WAKING UP ON THE FLOOR. ARRIVAL TO THE ER PT WAS REPORTING NAUSEA AND BACK PAIN. PT DID STATES SHE HAD A KIDNEY STONE THAT SHE HAS NOT PASSED. APPROX AT 1330 PT HAD ANOTHER WITNESSED SYNCOPE EPISODE PER NUCLEAR RADIATION ENGINEER. THIS RN OBTAINED VITAL SIGNS AND BLOOD SUGAR. PROVIDER AT BEDSIDE. [facility] CONSULT BELIEVES SYMPTOMS ARE CARDIAC RELATED OPPOSED TO NEURO RELATED.
--- NOTE | 2025-08-13 18:02 | XR_ITS ---
Examination: CTA carotids with intravenous contrast CTA brain, head with intravenous contrast. 2-D sagittal, coronal reconstructions. 3-D reconstructions. Exam date and time: August 13, 2025, 1840 hours INDICATIONS: Syncopal episode today CTDI: vol (mGy) 57.1 DLP: (mGycm) 501 Technique: Multiple CTA axial brain, head carotid images post intravenous contrast injection 100 cc, [id number]. 2-D sagittal, coronal reconstructions. 3-D reconstructions, 3-D post processing including vascular maximum intensity projection images. Low dose protocols were performed. One or more of the following dose reduction techniques were used; automated exposure control, adjustment of the mA and/or KV according to patient size, use of iterative reconstruction technique. Findings: No thoracic aortic aneurysm dilatation No pulmonary artery emboli No significant common carotid stenosis 40 to 60% stenosis right carotid bifurcation and origin right internal carotid artery Mildly dominant left vertebral artery with no critical stenoses Intracranial vertebral arteries basilar artery posterior cerebral branches fill with no large vessel occlusions Petrous juxtasellar supraclinoid internal carotid arteries M1 segments middle cerebral arteries middle cerebral artery branches, trifurcation, anterior cerebral arteries fill with no large vessel occlusions IMPRESSION: 40 to 60% stenosis right carotid bifurcation origin right internal carotid artery No cerebral large vessel arterial occlusions or thrombus
--- NOTE | 2025-08-13 18:04 | ECHO_ITS ---
Patient Info Name: Citlalli Brenner Age: 75 years : 1950 Gender: Female Ht: 168 cm Wt: 93 kg BSA: 2.12 m2 BP: 131 / 65 mmHg HR: 74 bpm Exam Date: 08/15/2025 9:25 AM Admit Date: 08/13/2025 Site: [facility] Room Number: [id number] Patient Status: I Technical Quality: Fair Exam Type: CA echo doppler complete Dry Yard Worker: Ila Geiger Ordering Physician: Blaze Levin Study Info Indications Syncope workup - Contrast/Agitated Saline Contrast/Ag. Saline: Agitated Saline Amount: --- ml IV Access Condition: patent with no signs of infiltration Primary Location: S2NX Left Ventricular Outflow Tract Name Value Normal LVOT 2D LVOT Diameter 1.9 cm LVOT Doppler LVOT Peak Velocity 125 cm/s LVOT Mean Gradient 4 mmHg LVOT VTI 32 cm LVOT VTI/AV VTI Ratio 0.8 LVOT Stroke Volume 89 ml Pulmonic Valve Name Value Normal PV Doppler PV Peak Velocity 108 cm/s Mitral Valve Name Value Normal MV Doppler MV Decel [place] 251 cm/s2 MV PHT 57 ms MV Area (PHT) 3.9 cm2 4.0-5.0 MV Diastolic Function MV E Peak Velocity 50 cm/s MV A Peak Velocity 108 cm/s MV E/A 0.5 MV Annular TDI MV Septal e' Velocity 5.7 cm/s MV E/e' (Septal) 8.7 MV Lateral e' Velocity 8.1 cm/s MV E/e' (Lateral) 6.1 MV e' Average 6.86 cm/s MV E/e' (Average) 7.4 Tricuspid Valve Name Value Normal TV Regurgitation Doppler TR Peak Velocity 189 cm/s Estimated PAP/RSVP RA Pressure 8 mmHg <=5 PA Systolic Pressure 22 mmHg <36 RV Systolic Pressure 22 mmHg <36 TV Annular TDI TV Lateral Bekah s' Velocity 10.3 cm/s >=9.5 Aortic Valve Name Value Normal AV 2D/MM AV Cusp Sep (MM) 1.1 cm AV Doppler AV Peak Velocity 163 cm/s AV Mean Gradient 6 mmHg AV VTI 40 cm AV Area (Cont Eq VTI) 2.3 cm2 >=3.0 AV Area (Cont Eq Venancio) 2.2 cm2 AV DI (Venancio) 0.77 AV Regurgitation 2D LVOT Area 2.8 cm2 AV Regurgitation Doppler AR Decel [place] 206 cm/s2 AR PHT 540 ms Ventricles Name Value Normal LV Dimensions 2D/MM IVS Diastolic Thickness (2D) 0.9 cm 0.6-0.9 LVID Diastole (2D) 3.9 cm 3.8-5.2 LVIW Diastolic Thickness (2D) 0.9 cm 0.6-0.9 LVID Systole (2D) 2.8 cm 2.2-3.5 LVOT Diameter 1.9 cm LV Mass (2D Cubed) 105.33 g 67.00-162.00 LV Mass Index (2D Cubed) 50 g/m2 43-95 Relative Wall Thickness (2D) 0.46 <=0.42 IVS/LVIW Diastolic Thickness (2D) 1.00 0.00-1.50 LV Fractional Shortening/Ejection Fraction 2D/MM LV Fractional Shortening (2D) 28 % 27-45 LV EF (2D Teichholz) 55 % RV Dimensions 2D/MM TV Lateral Bekah s' Velocity 10.3 cm/s >=9.5 Atria Name Value Normal LA Dimensions LA Volume (4C A-L) 31 ml LA Volume (BP A-L) 33 ml Left Ventricle Left ventricular chamber dimension is normal. Left ventricular systolic function is normal with visually estimated ejection fraction of 60-65%. There is concentric remodeling noted in the left ventricle. Left ventricular segmental wall motion is normal. There is grade I diastolic dysfunction in the left ventricle. Right Ventricle Right ventricular chamber dimension is normal. Right ventricular systolic function is normal. Left Atrium Left atrial chamber dimension is normal. Right Atrium Right atrial chamber dimension is normal. Aortic Valve The aortic valve is trileaflet. There is mild aortic valve sclerosis. There is no aortic valve stenosis with a peak velocity of 163 cm/s, mean gradient of 6 mmHg, and aortic valve area of 2.3 cm2. There is mild aortic valve regurgitation. Pulmonic Valve The pulmonic valve is normal. There is no pulmonic valve stenosis. There is no pulmonic regurgitation. Mitral Valve The mitral valve has thickened leaflets. There is no mitral valve stenosis. There is trace mitral valve regurgitation. Tricuspid Valve The tricuspid valve leaflets are normal. There is no tricuspid valve stenosis. There is mild tricuspid valve regurgitation. No pulmonary hypertension, estimated pulmonary arterial systolic pressure is 22 mmHg and systemic blood pressure of 131 mmHg in systole. Pericardium/Pleural The pericardium appears normal. There is no pericardial effusion. No pleural effusion visualized. Inferior Vena Cava Not well visualized inferior vena cava with >50% collapse upon inspiration consistent with normal right atrial pressure, 8 mmHg. Aorta The aortic measurements are indexed to age and body surface area. The aortic root at the sinus of Valsalva is not well visualized. The prox ascending aorta is not well visualized. Summary 1. Left ventricle size is normal and systolic function is normal. Estimated ejection fraction is 60-65%. There is grade I diastolic dysfunction. There is concentric remodeling noted. 2. Right ventricle chamber size is normal and systolic function is normal. Estimated RVSP is 22 mmHg. 3. There is mild aortic valve sclerosis with no stenosis and mild regurgitation. 4. There is trace mitral valve regurgitation. Thickened mitral valve leaflets. 5. There is mild tricuspid valve regurgitation. 6. The left atrium is normal. The right atrium is normal. 7. Not well visualized IVC with estimated RA pressure 8 mmHg. 8. No evidence of PFO. Negative bubble study. Report Signatures Finalized by Nate Gomes on 08/15/2025 07:46 PM
--- NOTE | 2025-08-13 18:42 | PD.RESHP ---
Documentation for date of: 08/13/25 [facility] History of Present Illness Chief complaint: syncope History of present illness: Citlalli Brenner 75F pmhx significant for HTN, IDDM2 (not taking insulin), HLD, hypothyroidism s/p remote thyroidectomy 2/2 Graves' disease, depression, asthma and dementia who presents with syncope. Patient reports that she was at a PCP office visiting for back and left flank pain however she suddenly started feeling nauseous, diaphoretic and had the feeling she was going to pass out. Had episode of LOC, unknown headstrike. Unknown how long she was out however when she came to, she was surrounded by EMS. Patient reports slight confusion lasting about 3 minutes following syncopal episode. Denies tunnel vision, chest pain, palpitations or SOB. Patient denies any previous episode of syncope however per chart review did have episode syncope in 2021 secondary to higher dose beta-blockers which she is currently still on. Decorative Engraver Apprentice is Dr. Donovan last 2 months ago and does have an appointment next week. Patient endorses decreased p.o. intake for the past 2 days due to significant back, L flank and anterior abdominal pain. Patient also had UTI early July and was prescribed cefuroxime on 07/13, ciprofloxacin 08/03 and levofloxacin on 08/13 of which she had not started taking. Furthermore patient endorses that for back pain she has been prescribed [place] 5 twice daily as needed. Although she is a diabetic, she reports stopped taking insulin a few months ago as she thought she did not need it anymore. Denies any recent illness, nausea/vomiting or fever/chills. 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 WBC 6.5, hemoglobin 13.2, creatinine 1.1, troponins negative, TSH less than 0.01. EKG shows bradycardia rate 57 QTc 464 with first-degree AV block. Head CT negative, chest x-ray negative, UA clean. In ED, given 1.5 L NS, famotidine x 1, Zofran x 1, Keppra 500 mg x 1. Teleneuro consulted for possible seizure activity however likely cardiac origin. Cardiology consulted for syncope with cardiac origin. Patient was admitted for further workup of syncope. Review of Systems Review of Systems Systems Reviewed: All systems reviewed, normal except as documented Exam Vital Signs Temp Pulse Resp BP Pulse Ox O2 Del Method 97.6 F 88 19 170/80 H 94 L Room Air 08/13/25 18:26 08/13/25 18:26 08/13/25 18:26 08/13/25 18:26 08/13/25 18:26 08/13/25 18:26 Narrative Exam GENERAL: AOx3, no acute distress, obese, sitting up comfortably in bed HEENT: mucous membranes moist, bilateral sclera anicteric CARDIOVASCULAR: regular rate and rhythm, S1/S2 present, no murmurs appreciated PULMONARY: clear to auscultation bilaterally, no rales/rhonchi/wheezes ABDOMINAL: soft, non-distended, no rebound/guarding, bowel sounds+, anterior abdomen tender to light palpation, left flank TTP EXTREMITIES: no peripheral edema SKIN: warm and dry, intact, no rashes NEURO: CN II-XII grossly intact, no focal deficits, alert, following commands Results: Labs 08/14/25 06:24 08/14/25 06:24 Labs: Short CBC 08/13/25 Range/Units 12:40 WBC 6.5 (3.6-11.0) Thou/mm3 Hgb 13.2 (12.0-16.0) g/dL Hct 39.7 (36.0-46.0) % Plt Count 284 (140-440) Thou/mm3 [facility] 08/13/25 12:40 Sodium 142 Potassium 3.8 Chloride 102 Carbon Dioxide 28.5 BUN 18 Creatinine 1.1 Glucose 168 H Calcium 9.8 Cardiac Enzymes 08/13/25 Range/Units 12:40 Troponin I < 0.020 (0.0-0.045) ng/mL Liver Function 08/13/25 Range/Units 12:40 Total Bilirubin 0.6 (0.3-1.2) mg/dL AST 23 (0-34) U/L ALT 12 (10-49) U/L Alkaline Phosphatase 93 (46-116) U/L Albumin 4.9 H (3.4-4.8) gm/dL Urine 08/13/25 Range/Units 14:10 Urine Color Lt-Yellow (Lt Yel-Yel) Urine Clarity Clear (Clear/Hazy) Urine pH 6.5 (5.0-7.0) Ur Specific [place] 1.011 (1.001-1.035) Urine Protein Negative (Neg - Trace) Urine Glucose (UA) Trace (Negative) Quality Measures Quality Measures none Advance care planning discussed with:: patient Medications Home Medications and Allergies Home Medications ?Medication ?Instructions ?Recorded ?Confirmed ?Type mirabegron 50 mg tablet,extended 50 mg PO QDAY BLADDER CONTROL ##0 05/12/15 08/13/25 History release 24 hr (Myrbetriq) simvastatin 20 mg tablet (Zocor) 20 mg PO QDAY High Cholesterol #0 05/12/15 08/13/25 History tabs losartan 100 1 tab PO QDAY 11/26/17 08/13/25 History mg-hydrochlorothiazide 12.5 mg tablet amlodipine 2.5 mg tablet 5 mg PO QDAY 08/09/23 08/13/25 History carvedilol 12.5 mg tablet 12.5 mg PO BID 08/09/23 08/13/25 History glipizide 5 mg tablet 5 mg PO .QD 08/09/23 08/13/25 History insulin glargine 100 unit/mL (3 20 unit subcut HS 08/09/23 08/13/25 History mL) subcutaneous pen (Lantus Solostar U-100 Insulin) levothyroxine 175 mcg tablet 175 mcg PO QDAY 08/09/23 08/13/25 History pantoprazole 40 mg tablet,delayed 40 mg PO QDAY 08/09/23 08/13/25 History release albuterol sulfate 90 mcg/actuation 2 puff inhalation Q4H PRN 08/13/25 08/13/25 History aerosol inhaler shortness of breath or wheezing donepezil 10 mg tablet 5 mg PO QPM 08/13/25 08/13/25 History memantine 10 mg tablet 10 mg PO BID 08/13/25 08/13/25 History Allergies Allergy/AdvReac Type Severity Reaction Status Date / Time aspirin Allergy Severe HIVES, Verified 08/13/25 12:36 SWELLING Visit Medications Acetaminophen (Acetaminophen 325 Mg Tablet) 650 mg PO Q6H PRN PRN Reason: Fever >100.4 or pain Stop: 09/12/25 18:05 Heparin Sodium (Porcine) (Heparin Sod Inj 5000 Unit/Ml Vial) 5,000 unit SC Q8HR MEJIA Stop: 08/27/25 21:59 Ondansetron HCl (Ondansetron Inj 2 Mg/Ml Inj 2 Ml) 4 mg IVP Q6H PRN; Protocol PRN Reason: NAUSEA OR VOMITING Stop: 09/12/25 18:05 Sennosides (Senna Tablet) 1 tab PO QDAY PRN; Protocol PRN Reason: constipation Stop: 09/12/25 18:05 Discontinued Medications Famotidine (Famotidine Inj 10 Mg/Ml Vial 2 Ml) 20 mg IVP X1 ONE Stop: 08/13/25 12:40 Last Admin: 08/13/25 12:50 Dose: 20 mg Sodium Chloride (Ns) 1,000 mls @ 500 mls/hr IV .Q2H ONE Stop: 08/13/25 14:38 Last Infusion: 08/13/25 14:51 Dose: Infused Sodium Chloride (Ns) 1,000 mls @ 999 mls/hr IV .Q1H1M ONE Stop: 08/13/25 15:00 Last Infusion: 08/13/25 14:37 Dose: Infused Levetiracetam (Levetiracetam Inj 100 Mg/Ml Vial 5ml) 500 mg IVP X1 ONE Stop: 08/13/25 13:37 Last Admin: 08/13/25 14:02 Dose: 500 mg Metoclopramide HCl (Metoclopramide 5 Mg Tablet) 10 mg PO Q6H PRN; Protocol PRN Reason: NAUSEA OR VOMITING Stop: 09/12/25 18:05 Ondansetron HCl (Ondansetron Inj 2 Mg/Ml Inj 2 Ml) 4 mg IVP X1 ONE; Protocol Stop: 08/13/25 12:40 Last Admin: 08/13/25 12:51 Dose: 4 mg Assessment & Plan Plan Citlalli Brenner 75F pmhx significant for HTN, IDDM2 (not taking insulin), HLD, hypothyroidism s/p remote thyroidectomy 2/2 Graves' disease, depression, asthma and dementia who presents to [facility] ED 08/13 with syncope, admitted for syncope likely 2/2 vasovagal response vs multifactorial. #Syncope - Neurally mediated versus cardiac versus orthostatic Presents with unwitnessed syncopal episode at PCP office. Unknown duration, denies prolonged confusion. 2021 syncope 2/2 beta blockers. Preceding symptoms include severe nausea vomiting, diaphoresis and feeling as if she is about to pass out. Decorative Engraver Apprentice Dr. Donovan. EKG shows bradycardia rate 57 QTc 464 with first-degree AV block. Head CT negative, chest x-ray negative, UA clean. Ddx: Likely vasovagal versus multifactorial iso poor p.o. intake, significant pain as of recent, first-degree AV block seen on EKG. no current concern for infection as WBC WNL and UA negative although patient did have ESBL UTI on 08/03/2025 cultures. Low suspicion for seizure as no hx, denies incontinence, and lack of post-ictal state. Plan: - Teleneurology consulted: MRI brain, CTA head and neck, TTE with bubble study, EEG - Cardiology consulted, recs appreciated - Hold beta ellen - F/u orthostatics, a1c, lipid panel #Hypertensive urgency #Hx of HTN Has hx of HTN, on amlodipine 5 mg QD, carvedilol 12.5 mg BID and losartan 12.5 mg QD at home. Endorses occasionally missing doses due to dementia. On admission BP 186/77, trops neg, Cr wnl. Ddx: likely 2/2 medication noncompliance Plan: - Restarted home amlodipine 5 mg QD and losartan 12.5 mg QD - Hold on BB iso syncope #Flank pain Possibly secondary to nephrolithiasis #Chronic LBP Patient endorses significant flank pain for about 1.5 months now. Did have UTI beginning of July and received outpatient antibiotics. Admission UA negative. Was recent prescribed [place] 5 as needed and usually takes twice daily. Ddx: Flank pain likely 2/2 referred from chronic back pain. Low suspicion for pyelonephritis given negative UA and WBC wnl, low suspicion for active passage of nephrolithiasis as on CTAP on 08/03 shows subcentimeter renal calculi. Plan: - Pain scale: tylenol 650 mg prn, [place] 5 q6h prn - CTM pain #IDDM2 Not taking insulin due to feeling she didn't needed it anymore. Takes glipizide 5 mg QD although forgetful. Glucose on admission 168. Plan: - SSI step 1 #Hypothyroidism s/p thyroidectomy during youth 2/2 Graves disease Plan: - Resume home levothyroxine 137 mcg ACBR - F/u free T4 #Bronchial asthma Inhalers as needed. Plan: - Duoneb q2h prn #Urinary retention Myrbetriq 50 mg QD at home. Plan: - Ribeiro inserted 08/13 #Hx ESBL UTI 08/03 urine culture shows ESBL however. Treated courses of cefuroxime 07/13 and ciprofloxacin 08/03. Denies urinary symptoms such as dysuria, retention or increased frequency or urgency. Plan: - CTM for urinary symptoms #Depression #Dementia Plan: - Resumed home Abilify 5 mg QD - Hold home memantine Hospital management: Lines: PIV, Ribeiro Diet: cardiac Bowel: senna prn GI prophylaxis: PO pantoprazole 40 mg QD DVT prophylaxis: heparin 5000 q8h Disposition: tele, syncope work up, pending cardio recs CODE STATUS: DNR Plan of care discussed with attending Dr. Villasenor, and PGY-3 Dr. Lauren. Sintia Arnett, DO PGY-1 Internal Medicine Senior Resident Attestation: The patient is a 75-year-old female with significant past medical history of hypertension, insulin-dependent diabetes mellitus type II, currently not on any medication, HLD, hypothyroidism s/p thyroidectomy 2/2 Graves' disease, depression, asthma and dementia was brought in by ambulance with chief complaint of syncope while she was waiting at her PCP office. She felt lightheadedness, and was diaphoretic and suddenly passed out, and see remembered the first thing after waking up was surrounded by paramedics. It took her about 2 to 3 minutes to get back to her normal baseline. ED consulted teleneurologist, who recommended CTA head and neck, MRI brain, EEG, but as her orthostatic vitals were positive, it was supposed to be vasovagal syncope secondary to her severe pain on her lower back and left flank likely secondary to chronic back pain versus complicated UTI, that was previously multidrug-resistant. During presentation, patient also reported that she had not had her any meal on that day, and has been nauseous. She was started on IV fluid, resumed all her home medications except carvedilol. CT head was negative, CTA head and neck was significant for 40 to 60% stenosis right carotid bifurcation origin right internal carotid artery, no cerebral large vessel arterial occlusion or thrombosis. We will admit the patient in telemetry unit, and monitored the rhythm overnight, and will appreciate the recommendations from cardiology. I discussed with and supervised the marketing intern physician involved in the care of this patient. I personally saw and examined the patient and discussed the assessment and plan with the entire medicine team, including my attending. I agree with the assessment and plan as documented above. Joon Lauren MD PGY3 Internal Medicine Attending Provider Attestation/Addendum I have discussed and was present for the essential components of the history, physical examination, diagnosis, and treatment plan with the resident. I agree with the patient's care as documented by the resident and amended herein by me. Garett Villasenor DO. Although this document has been carefully reviewed, there may still be some phonetic and other typographical errors. These errors are purely grammatical due to imperfections in the software program and should not be construed in any way to compromise the substance of the patient's medical care during this visit.
[2025-08-13] MEDS: LOSARTAN POTASSIUM 25 MG TABLET 12.5 MG PO (19:18)
--- NOTE | 2025-08-13 20:59 | PC.NURSE ---
REPORT GIVEN TO FLOOR RN USHA
[2025-08-13] MEDS: HEPARIN SOD INJ 5000 UNIT/ML VIAL SC (21:46)
[2025-08-13] MEDS: HYDROcodone/APAP 5/325 TABLET 1 TAB PO (21:46)
[2025-08-14] VITALS (9 sets, daily range): BP systolic 123–169; BP diastolic 54–91; PULSE 63–99; RESP 12–93; TEMP 36.2–36.9; O2SAT 92–96; BMI 32.5
--- NOTE | 2025-08-14 | XR_ITS ---
Examination: MRI brain without intravenous contrast. Date and time of exam: August 14, 2025, 1342 hours INDICATIONS: Syncopal episode with loss of consciousness yesterday Technique: Multiple axial and sagittal images of the brain obtained. Siemens high-resolution 1.5 Cari short bore scanners utilized. Sagittal sections, T1-weighted, TR 500, TE 14, are performed. Axial sections proton-density and T2-weighted have been obtained. Inversion recovery axial images, TR 9, 260, TE 111, TI 2500. Diffusion weighted images, axial sections, TR 4800, TE 128, B value 1000 Axial sections, ADC map, TR 4800, TE 128 Findings: Enlargement of the sella turcica is not present. The optic chiasm and infundibular are not remarkable. Prepontine and interpeduncular cisterns are not enlarged. There is no localized enlargement of the medulla or zak. Fourth ventricle and cerebellar tonsils appear normal in position. No subacute area of hemorrhage density is seen. Mass in the cerebellopontine angle region is not evident. Globes symmetrical. Orbital musculature including medial lateral rectus muscles do not exhibit abnormality. Diffusion-weighted images demonstrate no focus of restricted diffusion. Increased white matter signal prominent Mass effect upon the ventricular system is not identified. Impression: Negative for acute hemorrhage, mass effect or midline shift No acute infarct Prominent chronic microvascular white matter change
[2025-08-14] MEDS: HYDROcodone/APAP 5/325 TABLET 1 TAB PO ×2 (05:04→13:24)
[2025-08-14] MEDS: HEPARIN SOD INJ 5000 UNIT/ML VIAL SC ×3 (05:04→22:23)
[2025-08-14 07:00] LABS: Basophils # (Auto) 0.1 Thou/mm3 (0.0-0.2); Basophils % (Auto) 2 % (0-2.5); Eosinophils # (Auto) 0.3 Thou/mm3 (0.0-0.5); Eosinophils % (Auto) 5 % (0-10); Hematocrit 37.4 % (36.0-46.0); Hemoglobin 12.3 g/dL (12.0-16.0); Immature Granulocytes Auto 0.01 Thou/mm3 (0.00-0.00); Lymphocytes # (Auto) 2.5 Thou/mm3 (1.0-4.8); Lymphocytes % (Auto) 39 % (10-50); Mean Corpuscular HGB Conc 32.9 g/dl (31.0-37.0); Mean Corpuscular Hemoglobin 28.7 pg (25.0-35.0); Mean Corpuscular Volume 87 fL (80-100); Monocytes # (Auto) 0.8 Thou/mm3 (0.0-0.8); Monocytes % (Auto) 12 % (0-12); Neutrophils # (Auto) 2.8 Thou/mm3 (1.8-7.7); Neutrophils % (Auto) 43 % (37-80); Nucleated Red Blood Cell # 0.00 Thou/mm3 (0.00-0.00); Nucleated Red Blood Cell % 0 /100 WBC (0); Platelet Count 255 Thou/mm3 (140-440); RDW Standard Deviation 43.6 fL (36.4-46.3); Red Blood Count 4.29 Miln/mm3 (4.00-5.20); White Blood Count 6.5 Thou/mm3 (3.6-11.0)
[2025-08-14 07:29] LABS: Albumin, Serum 4.6 gm/dL (3.4-4.8); Albumin/Globulin Ratio 1.9 (1.2-2.2); Alkaline Phosphatase 88 U/L (46-116); Anion Gap 10 (7-16); Aspartate Amino Transferase 20 U/L (0-34); BUN/Creatinine Ratio 14 Ratio (12-20); Bilirubin,Total 0.5 mg/dL (0.3-1.2); Blood Urea Nitrogen 15 mg/dL (9-23); Calcium 9.4 mg/dL (8.3-10.6); Calcium (Corrected) 9.4 mg/dL (8.5-10.1); Carbon Dioxide 29.6 mMol/L (20.0-31.0); Cardiac Risk Estimate 2.7 RATIO (3.7-5.6); Chloride 104 mMol/L (98-107); Cholesterol 158 mg/dL (132-200); Creatinine (Component) 1.1 mg/dL (0.6-1.3); Estimated Creatinine Clearance 50.4 mL/min (>60); Free T4 (Free Thyroxine) 1.25 ng/dL (0.89-1.76); Globulin 2.4 gm/dL (2.3-3.5); Glucose 73 mg/dL (74-106); HDL Cholesterol 59 mg/dL (40-60); LDL Cholesterol,Calculated 71 mg/dL (0-130); Magnesium 1.5 mg/dL (1.6-2.6); Osmolality,Calculated 286 (275-295); Phosphorous 3.9 mg/dL (2.4-5.1); Potassium 3.7 mMol/L (3.4-5.1); Sodium 144 mMol/L (136-145); Total Protein 7.0 gm/dL (5.7-8.2); Triglycerides 138 mg/dL (30-150); eGFR 52 See Note
[2025-08-14 07:37] LABS: Glucose Estimated Average 140 mg/dL (80-131); Hemoglobin A1C 6.5 % Hgb (4.8-6.0)
[2025-08-14 07:38] LABS: Alanine Aminotransferase 10 U/L (10-49)
[2025-08-14] MEDS: PANTOPRAZOLE 40 MG TABLET PO (08:14)
[2025-08-14] MEDS: LOSARTAN POTASSIUM 25 MG TABLET 12.5 MG PO (08:14)
[2025-08-14] MEDS: MAGNESIUM OXIDE 400 MG TABLET PO (09:10)
--- NOTE | 2025-08-14 10:09 | XR_ITS ---
Examination: Arterial duplex lower extremity study. Date and time of exam: August 14, 2025, 1152 hours INDICATIONS: Bilateral leg pain and tenderness this week Findings: Duplex sonographic imaging of the lower extremity arteries using B-mode/Bruce scale imaging and Doppler spectral analysis and color flow. Ankle brachial indices have been recorded. Right common femoral artery demonstrates triphasic flow. Right superficial femoral artery demonstrates biphasic flow. Right popliteal artery demonstrates biphasic flow. Right posterior tibial artery demonstrated biphasic flow. Right ankle/brachial index is 1.1. Left common femoral artery demonstrates monophasic flow. Left superficial femoral artery demonstrates monophasic flow. Left popliteal artery demonstrates monophasic flow. Left posterior tibial artery demonstrated monophasic flow. Left ankle/brachial index is 1.1. Impression: Normal ankle-brachial indices, no significant obstructive arterial disease
[2025-08-14] MEDS: SODIUM CHLORIDE 0.9% 1000 ML 1,000 ML 125 ML IV (10:10)
--- NOTE | 2025-08-14 12:34 | ESCONSULT_ITS ---
<Statement entered by Nate Gomes MD - 08/16/25 09:01> I personally evaluated examined this patient in the emergency room with the resident physician Dr. Bobby patient appears to be doing better patient admitted hospital from doctor's office she had a syncopal episode questionable seizure possibly due to syncope appears to be vasovagal syncope a lot of nausea and vomiting prior to the event patient is clinically stable not have any arrhythmias evaluated patient with resident physician PGY 2 Dr. Bobby and agree with the treatment plan recommendation as documented. HPI Data of Consult Requesting Physician: Iam Villasenor DO Admitting Provider: Iam Villasenor DO Attending Provider: Iam Villasenor DO Primary Care Provider: Marine Astudillo NP Consult Narrative Reason for consult: syncope History of present illness: Patient is 75F PMH of HTN, IDDM2 (not taking insulin), HLD, hypothyroidism s/p remote thyroidectomy 2/2 Graves' disease, depression, asthma and dementia who presents with syncope. Patient reports that she was at a PCP office visiting for back and left flank pain when she suddenly started feeling nauseous, diaphoretic. Feeling like she would pass out. She fell off her seat with LOC, unknown headstrike. Patient was unable to report how long LOC lasted. States she was confused for about 3 min post episode. There was no oral trauma or incontinence. Denies tunnel vision, chest pain, palpitations or SOB. Patient denies any previous episode of syncope however per chart review did have episode syncope in 2021 secondary to higher dose beta-blockers which she is currently still on. Exhibits Manager is Dr. Donovan last 2 months ago and does have an appointment next week. Patient endorses decreased p.o. intake for the past 2 days due to significant back, L flank and anterior abdominal pain. Patient also had UTI early July and was prescribed cefuroxime on 07/13, ciprofloxacin 08/03 and levofloxacin on 08/13 of which she had not started taking. Furthermore patient endorses that for back pain she has been prescribed [place] 5 twice daily as needed. Although she is a diabetic, she reports stopped taking insulin a few months ago as she thought she did not need it anymore. Denies any recent illness, nausea/vomiting or fever/chills. EKG in ED bradycardia rate 57 QTc 464 with first-degree AV block. Head CT negative, chest x-ray negative, UA clean. TSH <0.01, troponins negative. Cardiology consulted for syncopal episode. Order echo and hold rate lowering agents for now. Likely vasovagal episode due to associated prodromal syptoms. Medications: Levothyroxine 150 mcg daily, carvedilol 12.5 mg twice daily, glipizide 5 mg daily, memantine 10 mg twice daily, losartan 12.5 mg daily, amlodipine 5 mg daily, Myrbetriq 50 mg daily, aripiprazole 5 mg daily cc:: cc: Iam Villasenor DO Review of Systems Review of Systems Systems Reviewed: All systems reviewed, normal except as documented Exam Vital Signs Temp Pulse Resp BP Pulse Ox O2 Del Method 97.1 F 70 18 135/66 H 93 L Room Air 08/14/25 08:00 08/14/25 08:14 08/14/25 08:00 08/14/25 08:14 08/14/25 08:00 08/14/25 08:00 Narrative Exam GENERAL: AOx3, no acute distress, obese, sitting up comfortably in bed HEENT: mucous membranes moist, bilateral sclera anicteric CARDIOVASCULAR: regular rate and rhythm, S1/S2 present, no murmurs appreciated PULMONARY: clear to auscultation bilaterally, no rales/rhonchi/wheezes ABDOMINAL: soft, non-distended, no rebound/guarding, bowel sounds+, anterior abdomen tender to light palpation EXTREMITIES: no peripheral edema SKIN: warm and dry, intact, no rashes NEURO: CN II-XII grossly intact, no focal deficits, alert, following commands Results Labs 08/14/25 06:24 08/14/25 06:24 Labs: Short CBC 08/13/25 08/14/25 Range/Units 12:40 06:24 WBC 6.5 6.5 (3.6-11.0) Thou/mm3 Hgb 13.2 12.3 (12.0-16.0) g/dL Hct 39.7 37.4 (36.0-46.0) % Plt Count 284 255 (140-440) Thou/mm3 BMP 08/13/25 08/14/25 12:40 06:24 Sodium 142 144 Potassium 3.8 3.7 Chloride 102 104 Carbon Dioxide 28.5 29.6 BUN 18 15 Creatinine 1.1 1.1 Glucose 168 H 73 L D Calcium 9.8 9.4 Cardiac Enzymes 08/13/25 Range/Units 12:40 Troponin I < 0.020 (0.0-0.045) ng/mL Liver Function 08/13/25 08/14/25 Range/Units 12:40 06:24 Total Bilirubin 0.6 0.5 (0.3-1.2) mg/dL AST 23 20 (0-34) U/L ALT 12 10 (10-49) U/L Alkaline Phosphatase 93 88 (46-116) U/L Albumin 4.9 H 4.6 (3.4-4.8) gm/dL Urine 08/13/25 Range/Units 14:10 Urine Color Lt-Yellow (Lt Yel-Yel) Urine Clarity Clear (Clear/Hazy) Urine pH 6.5 (5.0-7.0) Ur Specific [place] 1.011 (1.001-1.035) Urine Protein Negative (Neg - Trace) Urine Glucose (UA) Trace (Negative) Quality Measures Quality Measures none Advance care planning discussed with:: patient Medications Home Medications and Allergies Home Medications ?Medication ?Instructions ?Recorded ?Confirmed ?Type mirabegron 50 mg tablet,extended 50 mg PO QDAY BLADDER CONTROL ##0 05/12/15 08/13/25 History release 24 hr (Myrbetriq) simvastatin 20 mg tablet (Zocor) 20 mg PO QDAY High Ch olesterol #0 05/12/15 08/13/25 History tabs losartan 100 1 tab PO QDAY 11/26/1708/13 History mg-hydrochlorothiazide 12.5 mg tablet amlodipine 2.5 mg tablet 5 mg PO QDAY 08/09/23 History carvedilol 12.5 mg tablet 12.5 mg PO BID 08/09/2301/31 History glipizide 5 mg tablet 5 mg PO .QD 08/09/23 5 History insulin glargine 100 unit/mL (3 20 unit subcut HS 10/0108/13/25 History mL) subcutaneous pen (Lantus Solostar U-100 Insulin) levothyroxine 175 mcg tablet 175 mcg PO QDAY 08/09/23 08/13/25 History pantoprazole 40 mg tablet,delayed 40 mg PO QDAY 08/13/25 History release albuterol sulfate 90 mcg/actuation 2 puff inhalation Q 4H PRN 08/13/25 08/13/25 History aerosol inhaler shortness of breath or wheez ing donepezil 10 mg tablet 5 mg PO QPM 08/13/25 5 History memantine 10 mg tablet 10 mg PO BID 08/13/25 History Allergies Allergy/AdvReac Type Severity Reaction Status Date / Time aspirin Allergy Severe HIVES, Verified 08/13/25 12:36 SWELLING Visit Medications Acetaminophen (Acetaminophen 325 Mg Tablet) 650 mg PO Q6H PRN PRN Reason: Fever >100.4 or pain Stop: 09/12/25 18:05 Hydrocodone Bitart/Acetaminophen (Hydrocodone/Apap 5/325 Tablet) 1 tab PO Q6HR PRN PRN Reason: pain 4-10 Stop: 08/18/25 19:46 Last Admin: 08/14/25 05:04 Dose: 1 tab Albuterol/Ipratropium (Albuterol/Ipratropium (Duoneb) Rt Skye 3 Ml Nebu) 3 ml INH Q2HR PRN PRN Reason: SHORTNESS OF BREATH OR WHEEZE Stop: 09/12/25 18:41 Amlodipine Besylate (Amlodipine Besylate 5 Mg Tablet) 5 mg PO QDAY [facility] Stop: 09/12/25 18:44 Last Admin: 08/14/25 08:14 Dose: 5 mg Aripiprazole (Aripiprazole 5 Mg Tablet) 5 mg PO QDAY [facility] Stop: 09/13/25 08:59 Last Admin: 08/14/25 08:15 Dose: 5 mg Dextrose (Dextrose 50%-Water Inj 50 Ml Syringe) 25 ml IV Q15MIN PRN PRN Reason: BG 50-70 responsive npo pt Stop: 09/12/25 18:45 Dextrose (Dextrose 50%-Water Inj 50 Ml Syringe) 50 ml IV Q15MIN PRN PRN Reason: BG <50 OR BG <70 & pt unresponsive Stop: 09/12/25 18:45 Glucagon (Glucagon Inj 1 Mg Vial) 1 mg IM Q15MIN PRN PRN Reason: BG <70, and no IV access Heparin Sodium (Porcine) (Heparin Sod Inj 5000 Unit/Ml Vial) 5,000 unit SC Q8HR [facility] Stop: 08/27/25 21:59 Last Admin: 08/14/25 05:04 Dose: 5,000 unit Sodium Chloride (Ns) 1,000 mls @ 125 mls/hr IV .Q8H ONE Stop: 08/14/25 17:53 Last Admin: 08/14/25 10:10 Dose: 125 mls/hr Insulin Human Lispro (Insulin Lispro (Admelog) 1 Unit/0.01 Ml Unit) 0 unit SC [facility]; Protocol Stop: 09/13/25 07:29 Last Admin: 08/14/25 11:48 Dose: Not Given Levothyroxine Sodium 112 mcg/ (Levothyroxine Sodium 25 mcg) 137 mcg PO [facility] Stop: 09/13/25 05:59 Last Admin: 08/14/25 05:04 Dose: 137 mcg Losartan Potassium (Losartan Potassium 25 Mg Tablet) 12.5 mg PO QDAY [facility] Stop: 09/12/25 18:44 Last Admin: 08/14/25 08:14 Dose: 12.5 mg Magnesium Oxide (Magnesium Oxide 400 Mg Tablet) 400 mg PO QDAY [facility] Stop: 09/13/25 08:59 Last Admin: 08/14/25 09:10 Dose: 400 mg Ondansetron HCl (Ondansetron Inj 2 Mg/Ml Inj 2 Ml) 4 mg IVP Q6H PRN; Protocol PRN Reason: NAUSEA OR VOMITING Stop: 09/12/25 18:05 Pantoprazole Sodium (Pantoprazole 40 Mg Tablet) 40 mg PO QDAY [facility] Stop: 09/13/25 08:59 Last Admin: 08/14/25 08:14 Dose: 40 mg Sennosides (Senna Tablet) 1 tab PO QDAY PRN; Protocol PRN Reason: constipation Stop: 09/12/25 18:05 Discontinued Medications Acetaminophen (Acetaminophen 325 Mg Tablet) 650 mg PO Q6H PRN PRN Reason: Fever >100.4 or pain Stop: 09/12/25 18:05 Famotidine (Famotidine Inj 10 Mg/Ml Vial 2 Ml) 20 mg IVP X1 ONE Stop: 08/13/25 12:40 Last Admin: 08/13/25 12:50 Dose: 20 mg Sodium Chloride (Ns) 1,000 mls @ 500 mls/hr IV .Q2H ONE Stop: 08/13/25 14:38 Last Infusion: 08/13/25 14:51 Dose: Infused Sodium Chloride (Ns) 1,000 mls @ 999 mls/hr IV .Q1H1M ONE Stop: 08/13/25 15:00 Last Infusion: 08/13/25 14:37 Dose: Infused Influenza Virus Vaccine Quadrival (Influenza Virus 0.5 Ml Syringe ) 0.5 ml IMi .ONCE ONE Stop: 08/13/25 21:42 Levetiracetam (Levetiracetam Inj 100 Mg/Ml Vial 5ml) 500 mg IVP X1 ONE Stop: 08/13/25 13:37 Last Admin: 08/13/25 14:02 Dose: 500 mg Levothyroxine Sodium (Levothyroxine Sodium 125 Mcg Tablet) 137 mcg PO ACBR MEJIA Stop: 09/13/25 05:59 Metoclopramide HCl (Metoclopramide 5 Mg Tablet) 10 mg PO Q6H PRN; Protocol PRN Reason: NAUSEA OR VOMITING Stop: 09/12/25 18:05 Ondansetron HCl (Ondansetron Inj 2 Mg/Ml Inj 2 Ml) 4 mg IVP X1 ONE; Protocol Stop: 08/13/25 12:40 Last Admin: 08/13/25 12:51 Dose: 4 mg Assessment & Plan Plan Citlalli Brenner 75F pmhx significant for HTN, IDDM2 (not taking insulin), HLD, hypothyroidism s/p remote thyroidectomy 2/2 Graves' disease, depression, asthma and dementia who presents to [facility] ED 08/13 with syncope, admitted for syncope likely 2/2 vasovagal response vs multifactorial. #Syncope Presents with unwitnessed syncopal episode at PCP office. Unknown duration, denies prolonged confusion. 2021 syncope 2/2 beta blockers. Preceding symptoms include severe nausea vomiting, diaphoresis and feeling as if she is about to pass out. Exhibits Manager Dr. Donovan. EKG shows bradycardia rate 57 QTc 464 with first-degree AV block. Head CT negative, chest x-ray negative, UA clean. Ddx: Likely vasovagal, seizure, hypoglycemia, pain. Low suspicion for seizure denies incontinence, and lack of post-ictal state. CTA head and neck??40-60% stenosis of right carotid - MRI brain -echo pending - Hold beta ellen - F/u orthostatics -encouraged ambulation #Left common iliac artery stenosis CT abdomen pelvis from 08/03 concerning for 80% stenosis of left common iliac artery. Patient is denying any claudication. -Plan for outpatient follow-up. Would benefit from angiogram. #Hypertensive urgency-resolved #Hx of HTN Has hx of HTN, on amlodipine 5 mg QD, carvedilol 12.5 mg BID and losartan 12.5 mg QD at home. Endorses occasionally missing doses due to dementia. On admission BP 186/77, trops neg, Cr wnl. Ddx: likely 2/2 medication noncompliance, in response to syncope - amlodipine 5 mg QD -losartan 12.5 mg QD - Hold on BB iso syncope #Flank pain #Chronic LBP #IDDM2 #Hypothyroidism s/p thyroidectomy during youth 2/2 Graves disease #Bronchial asthma #Urinary retention #Hx ESBL UTI #Depression #Dementia Primary care team to manage above conditions and ongoing care needs. The patient's management plan was discussed with my attending physician Dr. Gomes. Lorrie Guzman, PGY-2
--- NOTE | 2025-08-14 13:02 | PD.RESPRO ---
Documentation for date of: 08/14/25 Subjective Subjective Interval history: No acute overnight events. Patient examined at bedside. Patient endorses persistent left flank pain, tolerable with Bigler 5. No further episodes of loss of consciousness. VSS, telemetry reviewed sinus rhythm rate 70 to 80s. Saturating low 90% on room air, baseline. Significant labs include magnesium 1.5, started magnesium oxide 400 mg daily. A1c 6.5, T4 within normal limits. Head and neck CTA shows 40 to 60% stenosis of right carotid bifurcation and ICA. 08/03/25 CTAP shows 80% stenosis left common iliac artery, ordered arterial Doppler LLE. MRI planned for today, Ativan 1 mg x 1 for claustrophobia. Pending TTE with bubble. Exam Vital Signs Temp Pulse Resp BP Pulse Ox O2 Del Method 97.1 F 70 18 135/66 H 93 L Room Air 08/14/25 08:00 08/14/25 08:14 08/14/25 08:00 08/14/25 08:14 08/14/25 08:00 08/14/25 08:00 Narrative Exam GENERAL: AOx3, no acute distress, obese, sitting up comfortably in bed HEENT: mucous membranes moist, bilateral sclera anicteric CARDIOVASCULAR: regular rate and rhythm, S1/S2 present, no murmurs appreciated PULMONARY: clear to auscultation bilaterally, no rales/rhonchi/wheezes ABDOMINAL: soft, non-distended, no rebound/guarding, bowel sounds+, left flank TTP EXTREMITIES: no peripheral edema SKIN: warm and dry, intact, no rashes NEURO: CN II-XII grossly intact, no focal deficits, alert, following commands Objective Labs 08/14/25 06:24 08/14/25 06:24 Labs: Laboratory Results - last 24 hr 08/13/25 08/13/25 08/14/25 12:40 14:10 06:24 WBC 6.5 6.5 RBC 4.59 4.29 Hgb 13.2 12.3 Hct 39.7 37.4 MCV 87 87 MCH 28.8 28.7 MCHC 33.2 32.9 RDW Std Deviation 42.5 43.6 Plt Count 284 255 Neut % (Auto) 44 43 Lymph % (Auto) 34 39 [place] % (Auto) 10 12 Eos % (Auto) 9 5 Baso % (Auto) 2 2 Neut # (Auto) 2.9 2.8 Lymph # (Auto) 2.2 2.5 [place]ahan # (Auto) 0.6 0.8 Eos # (Auto) 0.6 H 0.3 Baso # (Auto) 0.2 0.1 Immature Gran # (Auto) 0.01 H 0.01 H Absolute Nucleated RBC 0.00 0.00 Immature Gran % 0 0 Nucleated RBC % 0 0 PT 11.3 INR 1.1 APTT 26.9 Sodium 142 144 Potassium 3.8 3.7 Chloride 102 104 Carbon Dioxide 28.5 29.6 Anion Gap 12 10 BUN 18 15 Creatinine 1.1 1.1 Estim Creat Clear Calc 50.8 L 50.4 L eGFR 52 L 52 L BUN/Creatinine Ratio 16 14 Glucose [address] H [address] Glu mg/dL 140 H Hemoglobin A1c 6.5 H Calculated Osmolality 289 286 Calcium 9.8 9.4 Corrected Calcium 9.8 9.4 Phosphorus 3.9 Magnesium 1.5 L Total Bilirubin 0.6 0.5 AST 23 20 ALT 12 10 Alkaline Phosphatase 93 88 Troponin I < 0.020 Total Protein 7.4 7.0 Albumin 4.9 H 4.6 Globulin 2.5 2.4 Albumin/Globulin Ratio 2.0 1.9 Triglycerides 138 Cholesterol 158 LDL Cholesterol, Calc 71 HDL Cholesterol 59 Cholesterol/HDL Ratio 2.7 L Free T4 1.25 Ur Collection Type Clean Catch Urine Color Lt-Yellow Urine Clarity Clear Urine pH 6.5 Ur Specific [place] 1.011 Urine Protein Negative Urine Glucose (UA) Trace Urine Ketones Negative Urine Blood Negative Urine Nitrite Negative Urine Bilirubin Negative Urine Urobilinogen (Auto) Negative Ur Leukocyte Esterase Negative Urine RBC < 1 Urine WBC 1 Ur Squamous Epith Cells 0 Urine Bacteria None Ur Culture Indicated? Not Indicated Quality Measures Quality Measures none Advance care planning discussed with:: patient Assessment & Plan Assessment Current Active Medications: Generic Name Dose Route Start Last Admin Trade Name Freq PRN Reason Stop Dose Admin Acetaminophen 650 mg 08/13/25 19:51 Acetaminophen 325 Mg Tablet PO 09/12/25 18:05 Q6H PRN Fever >100.4 or pain Hydrocodone Bitart/Acetaminophen 1 tab 08/13/25 19:47 08/14/25 05:04 Hydrocodone/Apap 5/325 Tablet PO 08/18/25 19:46 1 tab Q6HR PRN Administration pain 4-10 Albuterol/Ipratropium 3 ml 08/13/25 18:42 Albuterol/Ipratropium (Duoneb) Rt Skye 3 Ml Nebu INH 09/12/25 18:41 Q2HR PRN SHORTNESS OF BREATH OR WHEEZE Amlodipine Besylate 5 mg 08/13/25 18:45 08/14/25 08:14 Amlodipine Besylate 5 Mg Tablet PO 09/12/25 18:44 5 mg QDAY MEJIA Administration Aripiprazole 5 mg 08/14/25 09:00 08/14/25 08:15 Aripiprazole 5 Mg Tablet PO 09/13/25 08:59 5 mg QDAY MEJIA Administration Dextrose 25 ml 08/13/25 18:46 Dextrose 50%-Water Inj 50 Ml Syringe IV 09/12/25 18:45 Q15MIN PRN BG 50-70 responsive npo pt Dextrose 50 ml 08/13/25 18:46 Dextrose 50%-Water Inj 50 Ml Syringe IV 09/12/25 18:45 Q15MIN PRN BG <50 OR BG <70 & pt unresponsive Glucagon 1 mg 08/13/25 18:46 Glucagon Inj 1 Mg Vial IM Q15MIN PRN BG <70, and no IV access Heparin Sodium (Porcine) 5,000 unit 08/13/25 22:00 08/14/25 05:04 Heparin Sod Inj 5000 Unit/Ml Vial SC 08/27/25 21:59 5,000 unit Q8HR MEJIA Administration Sodium Chloride 1,000 mls @ 125 mls/hr 08/14/25 09:54 08/14/25 10:10 Ns IV 08/14/25 17:53 125 mls/hr .Q8H ONE Administration Insulin Human Lispro 0 unit 08/14/25 07:30 08/14/25 11:48 Insulin Lispro (Admelog) 1 Unit/0.01 Ml Unit SC 09/13/25 07:29 Not Given AC [facility] Protocol Levothyroxine Sodium 112 mcg/ 137 mcg 08/14/25 06:00 08/14/25 05:04 Levothyroxine Sodium 25 mcg PO 09/13/25 05:59 137 mcg ACBR MEJIA Administration Losartan Potassium 12.5 mg 08/13/25 18:45 08/14/25 08:14 Losartan Potassium 25 Mg Tablet PO 09/12/25 18:44 12.5 mg QDAY MEJIA Administration Magnesium Oxide 400 mg 08/14/25 09:00 08/14/25 09:10 Magnesium Oxide 400 Mg Tablet PO 09/13/25 08:59 400 mg QDAY MEJIA Administration Ondansetron HCl 4 mg 08/13/25 18:06 Ondansetron Inj 2 Mg/Ml Inj 2 Ml IVP 09/12/25 18:05 Q6H PRN NAUSEA OR VOMITING Protocol Pantoprazole Sodium 40 mg 08/14/25 09:00 08/14/25 08:14 Pantoprazole 40 Mg Tablet PO 09/13/25 08:59 40 mg QDAY MEJIA Administration Sennosides 1 tab 08/13/25 18:06 Senna Tablet PO 09/12/25 18:05 QDAY PRN constipation Protocol Plan Citlalli Jordin 75F pmhx significant for HTN, IDDM2 (not taking insulin), HLD, hypothyroidism s/p remote thyroidectomy 2/2 Graves' disease, depression, asthma and dementia who presents to [facility] ED 08/13 with syncope, admitted for syncope likely 2/2 vasovagal response vs multifactorial. #Syncope, multifactorial, resolved #Vasovagal syncope #Orthostatic hypotension Presents with unwitnessed syncopal episode at PCP office. Unknown duration, denies prolonged confusion. 2021 syncope 2/2 beta blockers. Preceding symptoms include severe nausea vomiting, diaphoresis and feeling as if she is about to pass out. Ergonomics Consultant Dr. Donovan. Orthostatics positive (after 1.5L ED fluid bolus) EKG shows bradycardia rate 57 QTc 464 with first-degree AV block. Head CT negative, chest x-ray negative, UA clean. Ddx: Likely vasovagal versus multifactorial iso poor p.o. intake, significant pain as of recent, first-degree AV block seen on EKG. no current concern for infection as WBC WNL and UA negative although patient did have ESBL UTI on 08/03/2025 cultures. Low suspicion for seizure as no hx, denies incontinence, and lack of post-ictal state. Plan: - Teleneurology consulted: MRI brain, CTA head and neck, TTE with bubble study - 1L NS 125 cc/hr, will obtain orthostatics tomorrow - Cardiology consulted, recs appreciated - Hold beta ellen #Hypertensive urgency #Hx of HTN Has hx of HTN, on amlodipine 5 mg QD, carvedilol 12.5 mg BID and losartan 12.5 mg QD at home. Endorses occasionally missing doses due to dementia. On admission BP 186/77, trops neg, Cr wnl. Ddx: likely 2/2 medication noncompliance Plan: - Restarted home amlodipine 5 mg QD and losartan 12.5 mg QD - Hold on BB iso syncope # L flank pain Possibly secondary to nephrolithiasis #Chronic LBP Patient endorses significant flank pain for about 1.5 months now. Did have UTI beginning of July and received outpatient antibiotics. Admission UA negative. Was recent prescribed Bigler 5 as needed and usually takes twice daily. Ddx: Flank pain likely 2/2 referred from chronic back pain. Low suspicion for pyelonephritis given negative UA and WBC wnl, low suspicion for active passage of nephrolithiasis as on CTAP on 08/03 shows subcentimeter renal calculi. Plan: - Pain scale: tylenol 650 mg prn, Bigler 5 q6h prn - CTM pain #L Common iliac artery stenosis 08/03 CTAP shows suspicious for 80% stenosis of left common iliac artery. Plan: - F/u LLE arterial doppler - Cardiology consulted, recs appreciated #IDDM2 Not taking insulin due to feeling she didn't needed it anymore. Takes glipizide 5 mg QD although forgetful. Glucose on admission 168. a1c 6.5. Lipid panel wnl. Plan: - SSI step 1 #Hypothyroidism s/p thyroidectomy during youth 2/2 Graves disease TSH <0.01. T4 wnl Plan: - Resume home levothyroxine 137 mcg ACBR #Bronchial asthma Inhalers as needed. Plan: - Duoneb q2h prn #Urinary retention Myrbetriq 50 mg QD at home. Plan: - Ribeiro inserted 08/13 #Hx ESBL UTI 08/03 urine culture shows ESBL however. Treated courses of cefuroxime 07/13 and ciprofloxacin 08/03. Denies urinary symptoms such as dysuria, retention or increased frequency or urgency. Plan: - CTM for urinary symptoms #Depression #Dementia Plan: - Resumed home Abilify 5 mg QD - Hold home memantine Hospital management: Lines: PIV, Ribeiro Diet: cardiac Bowel: senna prn GI prophylaxis: PO pantoprazole 40 mg QD DVT prophylaxis: heparin 5000 q8h Disposition: tele, syncope work up, pending cardio recs CODE STATUS: DNR Plan of care discussed with attending Dr. Villasenor, and PGY-3 Dr. Lauren. Sintia Arnett DO PGY-1 Internal Medicine Senior Resident Attestation: The patient reported doing better than yesterday, the Doppler for bilateral lower extremity was negative for any arterial occlusion or stenosis, brain MRI revealed prominent chronic microvascular white matter changes. We are pending TTE with bubble study. Possibly discharge tomorrow if the patient is stable. I discussed with and supervised the biology internship physician involved in the care of this patient. I personally saw and examined the patient and discussed the assessment and plan with the entire medicine team, including my attending. I agree with the assessment and plan as documented above. Joon Lauren MD PGY3 Internal Medicine Attending Provider Attestation/Addendum I have discussed and was present for the essential components of the history, physical examination, diagnosis, and treatment plan with the resident. I agree with the patient's care as documented by the resident and amended herein by me. Garett Villasenor DO. Although this document has been carefully reviewed, there may still be some phonetic and other typographical errors. These errors are purely grammatical due to imperfections in the software program and should not be construed in any way to compromise the substance of the patient's medical care during this visit. Patient seen and evaluated this AM. No acute events overnight, vital signs stable, patient afebrile, blood glucose on the lower side today is 73, patient did endorse back pain, CTA of the head and neck was performed last night demonstrated 40 to 60% stenosis of the right carotid bifurcation origin of the right internal carotid artery. No LVO's were noted, brain MRI was also performed however negative for acute intracranial pathology to include infarcts, we did perform an arterial duplex ultrasound today which demonstrated normal ankle-brachial indices, no significant arterial disease noted. I do not feel the patient needs an EEG, hence that order was canceled, there was no signs of seizure activity noted. This is likely vasovagal versus cardiogenic at this point. Will repeat orthostatic vital signs today and wait for her echocardiogram, likely DC in 1 to 2 days.
[2025-08-14] MEDS: LORazepam 2 MG/ML VIAL 1 MG IVP (13:16)
[2025-08-14] MEDS: ACETAMINOPHEN 325 MG TABLET 650 MG PO (17:13)
[2025-08-14] MEDS: HYDROmorphone INJ 2 MG/ML VIAL 0.5 MG IVP (18:05)
[2025-08-15] VITALS (9 sets, daily range): BP systolic 131–155; BP diastolic 62–88; PULSE 68–80; RESP 11–19; TEMP 36.4–36.8; O2SAT 93–100; BMI 32.5
[2025-08-15] MEDS: HYDROcodone/APAP 5/325 TABLET 1 TAB PO ×3 (00:58→20:24)
[2025-08-15 05:56] LABS: Basophils # (Auto) 0.1 Thou/mm3 (0.0-0.2); Basophils % (Auto) 2 % (0-2.5); Eosinophils # (Auto) 0.5 Thou/mm3 (0.0-0.5); Eosinophils % (Auto) 8 % (0-10); Hematocrit 36.2 % (36.0-46.0); Hemoglobin 11.4 g/dL (12.0-16.0); Immature Granulocytes Auto 0.01 Thou/mm3 (0.00-0.00); Lymphocytes # (Auto) 2.9 Thou/mm3 (1.0-4.8); Lymphocytes % (Auto) 47 % (10-50); Mean Corpuscular HGB Conc 31.5 g/dl (31.0-37.0); Mean Corpuscular Hemoglobin 28.1 pg (25.0-35.0); Mean Corpuscular Volume 89 fL (80-100); Monocytes # (Auto) 0.6 Thou/mm3 (0.0-0.8); Monocytes % (Auto) 9 % (0-12); Neutrophils # (Auto) 2.2 Thou/mm3 (1.8-7.7); Neutrophils % (Auto) 35 % (37-80); Nucleated Red Blood Cell # 0.00 Thou/mm3 (0.00-0.00); Nucleated Red Blood Cell % 0 /100 WBC (0); Platelet Count 255 Thou/mm3 (140-440); RDW Standard Deviation 44.4 fL (36.4-46.3); Red Blood Count 4.06 Miln/mm3 (4.00-5.20); White Blood Count 6.3 Thou/mm3 (3.6-11.0)
[2025-08-15] MEDS: HEPARIN SOD INJ 5000 UNIT/ML VIAL SC ×2 (06:24→14:15)
[2025-08-15 06:44] LABS: Albumin, Serum 4.2 gm/dL (3.4-4.8); Albumin/Globulin Ratio 1.6 (1.2-2.2); Alkaline Phosphatase 83 U/L (46-116); Anion Gap 9 (7-16); Aspartate Amino Transferase 19 U/L (0-34); BUN/Creatinine Ratio 9 Ratio (12-20); Bilirubin,Total 0.4 mg/dL (0.3-1.2); Blood Urea Nitrogen 7 mg/dL (9-23); Calcium 9.5 mg/dL (8.3-10.6); Calcium (Corrected) 9.5 mg/dL (8.5-10.1); Carbon Dioxide 31.8 mMol/L (20.0-31.0); Chloride 102 mMol/L (98-107); Creatinine (Component) 0.8 mg/dL (0.6-1.3); Estimated Creatinine Clearance 69.3 mL/min (>60); Globulin 2.6 gm/dL (2.3-3.5); Glucose 98 mg/dL (74-106); Magnesium 1.4 mg/dL (1.6-2.6); Osmolality,Calculated 282 (275-295); Potassium 3.6 mMol/L (3.4-5.1); Sodium 143 mMol/L (136-145); Total Protein 6.8 gm/dL (5.7-8.2); eGFR > 60 See Note
[2025-08-15 06:49] LABS: Alanine Aminotransferase 9 U/L (10-49)
[2025-08-15 08:33] LABS: Phosphorous 3.1 mg/dL (2.4-5.1)
[2025-08-15] MEDS: PANTOPRAZOLE 40 MG TABLET PO (08:43)
[2025-08-15] MEDS: MAGNESIUM OXIDE 400 MG TABLET PO (08:43)
[2025-08-15] MEDS: LOSARTAN POTASSIUM 25 MG TABLET 12.5 MG PO (08:43)
[2025-08-15] MEDS: Magnesium Sulfate 4 GM Ivpb 4 GM/50 ML BAG IV (08:44)
[2025-08-15] MEDS: ONDANSETRON INJ 2 MG/ML INJ 2 ML 4 MG IVP (08:48)
--- NOTE | 2025-08-15 09:15 | ESPR_ITS ---
<Statement entered by Blaze eLvin MD - 08/15/25 16:10> I saw and examined patient personally and supervised PGY 1 resident, Dr. Calix with formulating a management plan. I agree with the documentation with the exceptions as listed below. Patient will be admitted for syncope workup. CT head and MRI brain were both negative for acute hemorrhage, mass effect or midline shift. Lower extremity arterial duplex did show elevated SHAWN at 1.1 which did indicate calcification. Also on admission CT abdomen pelvis that showed 80% stenosis of the left iliac artery. Also orthostatic vitals were positive, ordered Keith hose. Pending results of transthoracic echocardiogram. Cardiology, Dr. Jean-Claude Gomes consulted, appreciate recommendations. Anticipate discharge within 24 hours Plan of care discussed with Attending Dr. Hamilton Levin MD PGY 2 Disclaimer: This note was dictated by speech recognition. Minor errors in window covering sales consultant may be present due to voice recognition software. Documentation for date of: 08/15/25 Subjective Subjective Interval history: Patient seen and examined at bedside; no acute events overnight. Orthostatics positive (169/91 sitting, 146/83 standing). 1060ml net out over last 24 hours. Arterial duplex scan showed SHAWN 1.1 in left , MRI brain showed no acute hemorrhage, mass effect, midline shift. Cardiology will see today. Exam Vital Signs Temp Pulse Resp BP Pulse Ox O2 Del Method O2 Flow Rate 97.6 F 78 13 155/88 H 96 Nasal Cannula 1 08/15/25 08:00 08/15/25 08:48 08/15/25 08:00 08/15/25 08:48 08/15/25 08:00 08/15/25 08:00 08/15/25 08:00 Narrative Exam GENERAL: AOx3, no acute distress, obese, sitting up comfortably in bed HEENT: mucous membranes moist, bilateral sclera anicteric CARDIOVASCULAR: regular rate and rhythm, S1/S2 present, no murmurs appreciated PULMONARY: clear to auscultation bilaterally, no rales/rhonchi/wheezes ABDOMINAL: soft, non-distended, no rebound/guarding, bowel sounds+, left abdomen and backup administrative coordinator to palpation EXTREMITIES: no peripheral edema SKIN: warm and dry, intact, no rashes NEURO: CN II-XII grossly intact, no focal deficits, alert, following commands Objective Labs 08/16/25 05:20 08/16/25 05:20 Labs: Laboratory Results - last 24 hr 08/15/25 05:03 WBC 6.3 RBC 4.06 Hgb 11.4 L Hct 36.2 MCV 89 MCH 28.1 MCHC 31.5 RDW Std Deviation 44.4 Plt Count 255 Neut % (Auto) 35 L Lymph % (Auto) 47 [place] % (Auto) 9 Eos % (Auto) 8 Baso % (Auto) 2 Neut # (Auto) 2.2 Lymph # (Auto) 2.9 [place] # (Auto) 0.6 Eos # (Auto) 0.5 Baso # (Auto) 0.1 Immature Gran # (Auto) 0.01 H Absolute Nucleated RBC 0.00 Immature Gran % 0 Nucleated RBC % 0 Sodium 143 Potassium 3.6 Chloride 102 Carbon Dioxide 31.8 H Anion Gap 9 BUN 7 L Creatinine 0.8 Estim Creat Clear Calc 69.3 eGFR > 60 BUN/Creatinine Ratio 9 L Glucose 98 Calculated Osmolality 282 Calcium 9.5 Corrected Calcium 9.5 Phosphorus 3.1 Magnesium 1.4 L Total Bilirubin 0.4 AST 19 ALT 9 L Alkaline Phosphatase 83 Total Protein 6.8 Albumin 4.2 Globulin 2.6 Albumin/Globulin Ratio 1.6 Quality Measures Quality Measures none Advance care planning discussed with:: other Assessment & Plan Assessment Current Active Medications: Generic Name Dose Route Start Last Admin Trade Name Freq PRN Reason Stop Dose Admin Acetaminophen 650 mg 08/13/25 19:51 08/14/25 17:13 Acetaminophen 325 Mg Tablet PO 09/12/25 18:05 650 mg Q6H PRN Administration Fever >100.4 or pain Hydrocodone Bitart/Acetaminophen 1 tab 08/13/25 19:47 08/15/25 08:48 Hydrocodone/Apap 5/325 Tablet PO 08/18/25 19:46 1 tab Q6HR PRN Administration pain 4-10 Albuterol/Ipratropium 3 ml 08/13/25 18:42 Albuterol/Ipratropium (Duoneb) Rt Skye 3 Ml Nebu INH 09/12/25 18:41 Q2HR PRN SHORTNESS OF BREATH OR WHEEZE Amlodipine Besylate 5 mg 08/13/25 18:45 08/15/25 08:48 Amlodipine Besylate 5 Mg Tablet PO 09/12/25 18:44 5 mg QDAY MEJIA Administration Aripiprazole 5 mg 08/14/25 09:00 08/15/25 08:43 Aripiprazole 5 Mg Tablet PO 09/13/25 08:59 5 mg QDAY MEJIA Administration Dextrose 25 ml 08/13/25 18:46 Dextrose 50%-Water Inj 50 Ml Syringe IV 09/12/25 18:45 Q15MIN PRN BG 50-70 responsive npo pt Dextrose 50 ml 08/13/25 18:46 Dextrose 50%-Water Inj 50 Ml Syringe IV 09/12/25 18:45 Q15MIN PRN BG <50 OR BG <70 & pt unresponsive Glucagon 1 mg 08/13/25 18:46 Glucagon Inj 1 Mg Vial IM Q15MIN PRN BG <70, and no IV access Heparin Sodium (Porcine) 5,000 unit 08/13/25 22:00 08/15/25 06:24 Heparin Sod Inj 5000 Unit/Ml Vial SC 08/27/25 21:59 5,000 unit Q8HR MEJIA Administration Magnesium Sulfate 4 gm in 50 mls @ 12.5 mls/hr 08/15/25 07:11 08/15/25 08:44 Magnesium Sulfate Ivpb IV 08/15/25 11:10 12.5 mls/hr X1 ONE Administration Insulin Human Lispro 0 unit 08/14/25 07:30 08/15/25 08:42 Insulin Lispro (Admelog) 1 Unit/0.01 Ml Unit SC 09/13/25 07:29 Not Given [facility] Protocol Levothyroxine Sodium 112 mcg/ 137 mcg 08/14/25 06:00 08/15/25 06:25 Levothyroxine Sodium 25 mcg PO 09/13/25 05:59 137 mcg AC MEJIA Administration Losartan Potassium 12.5 mg 08/13/25 18:45 08/15/25 08:43 Losartan Potassium 25 Mg Tablet PO 09/12/25 18:44 12.5 mg QDAY MEJIA Administration Magnesium Oxide 400 mg 08/14/25 09:00 08/15/25 08:43 Magnesium Oxide 400 Mg Tablet PO 09/13/25 08:59 400 mg QDAY MEJIA Administration Ondansetron HCl 4 mg 08/13/25 18:06 08/15/25 08:48 Ondansetron Inj 2 Mg/Ml Inj 2 Ml IVP 09/12/25 18:05 4 mg Q6H PRN Administration NAUSEA OR VOMITING Protocol Pantoprazole Sodium 40 mg 08/14/25 09:00 08/15/25 08:43 Pantoprazole 40 Mg Tablet PO 09/13/25 08:59 40 mg QDAY MEJIA Administration Sennosides 1 tab 08/13/25 18:06 Senna Tablet PO 09/12/25 18:05 QDAY PRN constipation Protocol Plan Citlalli Brenner 75F pmhx significant for HTN, IDDM2 (not taking insulin), HLD, hypothyroidism s/p remote thyroidectomy 2/2 Graves' disease, depression, asthma and dementia who presents to [facility] ED 08/13 with syncope, admitted for syncope likely 2/2 vasovagal response vs multifactorial. #Syncope, multifactorial, resolved #Vasovagal syncope #Orthostatic hypotension Presents with unwitnessed syncopal episode at PCP office. Unknown duration, denies prolonged confusion. 2021 syncope 2/2 beta blockers. Preceding symptoms include severe nausea vomiting, diaphoresis and feeling as if she is about to pass out. Blacksmith Supervisor Dr. Donovan. Orthostatics positive (after 1.5L ED fluid bolus) EKG shows bradycardia rate 57 QTc 464 with first-degree AV block. Head CT negative, chest x-ray negative, UA clean. Ddx: Likely vasovagal versus multifactorial iso poor p.o. intake, significant pain as of recent, first-degree AV block seen on EKG. no current concern for infection as WBC WNL and UA negative although patient did have ESBL UTI on 08/03/2025 cultures. Low suspicion for seizure as no hx, denies incontinence, and lack of post-ictal state. 08-14-25- Orthostatics positive (169/91 sitting, 146/83 standing). Arterial duplex scan showed SHAWN 1.1 in LLE, MRI brain showed no acute hemorrhage, mass effect, midline shift. CTA showed 40 to 60% stenosis right carotid bifurcation origin right internal caroti artery; No cerebral large vessel arterial occlusions or thrombus) Plan: - Teleneurology consulted: TTE with bubble study - Orthostatics positive - Cardiology consulted, recs appreciated - Hold beta ellen #Hypertensive urgency #Hx of HTN Has hx of HTN, on amlodipine 5 mg QD, carvedilol 12.5 mg BID and losartan 12.5 mg QD at home. Endorses occasionally missing doses due to dementia. On admission BP 186/77, trops neg, Cr wnl. Ddx: likely 2/2 medication noncompliance Plan: - Restarted home amlodipine 5 mg QD and losartan 12.5 mg QD - Hold on BB iso syncope # L flank pain Possibly secondary to nephrolithiasis #Chronic LBP Patient endorses significant flank pain for about 1.5 months now. Did have UTI beginning of July and received outpatient antibiotics. Admission UA negative. Was recent prescribed [place] 5 as needed and usually takes twice daily. Ddx: Flank pain likely 2/2 referred from chronic back pain. Low suspicion for pyelonephritis given negative UA and WBC wnl, low suspicion for active passage of nephrolithiasis as on CTAP on 08/03 shows subcentimeter renal calculi. Plan: - Pain scale: tylenol 650 mg prn, [place] 5 q6h prn - CTM pain #L Common iliac artery stenosis 08/03 CTAP shows suspicious for 80% stenosis of left common iliac artery. Arterial duplex scan showed SHAWN 1.1 in left Plan: - Cardiology consulted, recs appreciated #IDDM2 Not taking insulin due to feeling she didn't needed it anymore. Takes glipizide 5 mg QD although forgetful. Glucose on admission 168. a1c 6.5. Lipid panel wnl. Plan: - SSI step 1 #Hypothyroidism s/p thyroidectomy during youth 2/2 Graves disease TSH <0.01. T4 wnl Plan: - Resume home levothyroxine 137 mcg ACBR #Bronchial asthma Inhalers as needed. Plan: - Duoneb q2h prn #Urinary retention Myrbetriq 50 mg QD at home. Plan: - Ribeiro inserted 08/13 #Hx ESBL UTI 08/03 urine culture shows ESBL however. Treated courses of cefuroxime 07/13 and ciprofloxacin 08/03. Denies urinary symptoms such as dysuria, retention or increased frequency or urgency. Plan: - CTM for urinary symptoms #Depression #Dementia Plan: - Resumed home Abilify 5 mg QD - Hold home memantine Hospital management: Lines: PIV, Ribeiro Diet: cardiac Bowel: senna prn GI prophylaxis: PO pantoprazole 40 mg QD DVT prophylaxis: heparin 5000 q8h Disposition: tele, syncope work up, pending cardio recs CODE STATUS: DNR This case was discussed with my attending physician, Dr. Villasenor, and senior resident, Dr. Levin. Alphonso Calix, PGY1 Attending Provider Attestation/Addendum I have discussed and was present for the essential components of the history, physical examination, diagnosis, and treatment plan with the resident. I agree with the patient's care as documented by the resident and amended herein by me. Garett Villasenor, DO. Although this document has been carefully reviewed, there may still be some phonetic and other typographical errors. These errors are purely grammatical due to imperfections in the software program and should not be construed in any way to compromise the substance of the patient's medical care during this visit.
--- NOTE | 2025-08-15 09:46 | PC.SS ---
Scrap Burner, Kristin unable to complete initial due to patient doing an echocardiogram. SW will follow-up.
--- NOTE | 2025-08-15 15:57 | PC.SS ---
This is 73-year-old female who presented to the ED after suffering from syncopal episode. Patient appeared alert and oriented to self, place and situation. Patient reported that prior to admission, she was residing at home with her and son. Patient reported that she requires moderate assistance with ADLs. Patient uses a rollator for ambulation. Patient assigned her , Randall as an emergency contact. Patient's PCP is Marine Astudillo. When medically clear, patient can return home with HH vs. SNF, pending PT recommendations.
--- NOTE | 2025-08-15 23:57 | ESPR_ITS ---
RE: CODY ROGERS : 1950 DATE OF SERVICE: 08/15/2025 SUBJECTIVE: The patient doing fairly well until recently. The patient has had 1 episode of syncopal episode and so far workup is negative. Cardiac echo unremarkable. The patient is still having some pain on the left side on the loin region on the back side. She has had lower extremity arterial duplex scan showed monophasic flow in the left common femoral artery, superficial femoral artery suggestive of possible high-grade iliac occlusion on the left side. Brain MRI was also negative. Cardiac echo is normal. The patient has some orthostatic hypotension, but generally not having any further episodes of syncope. Most likely, she had a vasovagal syncope. OBJECTIVE: GENERAL: Well-nourished female, alert, awake, in no acute distress. VITAL SIGNS: Blood pressure 150/68, pulse rate is 80, respirations 18, temperature normal. NECK: Supple. No JVD. Carotid pulses equal bilaterally, no bruits. CHEST: Symmetric. LUNGS: Have decreased breath sounds. No rales or rhonchi. HEART: Sounds are regular. ABDOMEN: Thin and soft. EXTREMITIES: No edema. /RECTAL: Not performed. LAST REPAIRER HELPER: Normal. DIAGNOSTIC DATA: Electrocardiogram showed normal sinus rhythm. IMPRESSION: 1. Syncopal episode possibly vasovagal syncope. 2. Abnormal lower extremity duplex scan on the left side possible significant high-grade iliac occlusion. 3. Hypertension. 4. Orthostatic hypotension. RECOMMENDATIONS: I would get her out of bed to chair and also ambulate as tolerated. If she feels well, she can be discharged home as an outpatient. I will assess her peripheral arterial disease as well as underlying coronary artery disease. DT: 22:55:18 TT: 23:57:00 Ref: [id number] - TID: [id number]
[2025-08-16] VITALS (8 sets, daily range): BP systolic 158–177; BP diastolic 73–86; PULSE 64–78; RESP 11–19; TEMP 36.3–36.8; O2SAT 90–98; BMI 33.7
[2025-08-16] MEDS: HYDROcodone/APAP 5/325 TABLET 1 TAB PO ×2 (04:07→14:33)
[2025-08-16] MEDS: HEPARIN SOD INJ 5000 UNIT/ML VIAL SC ×2 (05:16→14:28)
[2025-08-16 06:30] LABS: Basophils # (Auto) 0.1 Thou/mm3 (0.0-0.2); Basophils % (Auto) 1 % (0-2.5); Eosinophils # (Auto) 0.4 Thou/mm3 (0.0-0.5); Eosinophils % (Auto) 6 % (0-10); Hematocrit 37.4 % (36.0-46.0); Hemoglobin 11.9 g/dL (12.0-16.0); Immature Granulocytes Auto 0.01 Thou/mm3 (0.00-0.00); Lymphocytes # (Auto) 2.2 Thou/mm3 (1.0-4.8); Lymphocytes % (Auto) 34 % (10-50); Mean Corpuscular HGB Conc 31.8 g/dl (31.0-37.0); Mean Corpuscular Hemoglobin 28.5 pg (25.0-35.0); Mean Corpuscular Volume 90 fL (80-100); Monocytes # (Auto) 0.6 Thou/mm3 (0.0-0.8); Monocytes % (Auto) 9 % (0-12); Neutrophils # (Auto) 3.3 Thou/mm3 (1.8-7.7); Neutrophils % (Auto) 50 % (37-80); Nucleated Red Blood Cell # 0.00 Thou/mm3 (0.00-0.00); Nucleated Red Blood Cell % 0 /100 WBC (0); Platelet Count 264 Thou/mm3 (140-440); RDW Standard Deviation 43.6 fL (36.4-46.3); Red Blood Count 4.17 Miln/mm3 (4.00-5.20); White Blood Count 6.5 Thou/mm3 (3.6-11.0)
[2025-08-16 06:40] LABS: Alanine Aminotransferase 10 U/L (10-49); Albumin, Serum 4.6 gm/dL (3.4-4.8); Albumin/Globulin Ratio 1.8 (1.2-2.2); Alkaline Phosphatase 93 U/L (46-116); Anion Gap 8 (7-16); Aspartate Amino Transferase 21 U/L (0-34); BUN/Creatinine Ratio 6 Ratio (12-20); Bilirubin,Total 0.4 mg/dL (0.3-1.2); Blood Urea Nitrogen 5 mg/dL (9-23); Calcium 10.0 mg/dL (8.3-10.6); Calcium (Corrected) 10.0 mg/dL (8.5-10.1); Carbon Dioxide 34.7 mMol/L (20.0-31.0); Chloride 99 mMol/L (98-107); Creatinine (Component) 0.8 mg/dL (0.6-1.3); Estimated Creatinine Clearance 70.6 mL/min (>60); Globulin 2.5 gm/dL (2.3-3.5); Glucose 144 mg/dL (74-106); Magnesium 1.6 mg/dL (1.6-2.6); Osmolality,Calculated 283 (275-295); Potassium 3.8 mMol/L (3.4-5.1); Sodium 142 mMol/L (136-145); Total Protein 7.1 gm/dL (5.7-8.2); eGFR > 60 See Note
[2025-08-16] MEDS: PANTOPRAZOLE 40 MG TABLET PO (08:02)
[2025-08-16] MEDS: LOSARTAN POTASSIUM 25 MG TABLET PO (08:03)
[2025-08-16] MEDS: MAGNESIUM OXIDE 400 MG TABLET PO (08:03)
--- NOTE | 2025-08-16 11:42 | PC.SS ---
Addendum entered by Vanesa Blount 08/16/25 11:53: O2 has not been entered at this time. Original Note: SS was informed by Dr. Villasenor pt is requiring home O2. SS met with pt confirm demographic information. Pt is aware her health insurance is contracted with [facility] and pt is agreable to utilize [employer]. SS called Dimitrios from [facility] to confirm fax#[phone]. SS met with bedside nurse, Brianne who is aware pt is requiring O2 testing for home O2 and is ready for dc today. Per RnBrianne, PT has completed O2 test.
--- NOTE | 2025-08-16 12:01 | ESDS_ITS ---
<Statement entered by Blaze Levin MD - 08/16/25 17:50> I saw and examined patient personally and supervised PGY 1 resident, Dr. Arnett with formulating a discharge plan. I agree with the documentation as listed below. Plan of care discussed with Attending Dr. Hamilton Levni MD PGY 2 Disclaimer: This note was dictated by speech recognition. Minor errors in t ranscription may be present due to voice recognition software. Planned Discharge Date 08/16/25 DS: Providers Provider Date of admission: 08/13/25 17:58 Primary care physician: Marine Astudillo NP Admitting Provider: Iam Villasenor DO Attending Provider on Admission: Iam Villasenor DO Consults: 08/13/25 15:40 Consult to Neurology / Tele-Neurology Stat Comment: Neurolgy consult, new onset seizure Consulting Provider: [facility] 08/13/25 17:02 Consult to Cardiology Stat Comment: Consulting Provider: Nate Gomes 08/15/25 09:41 Referral Physical Therapy Urgent Comment: Physician Instructions: Instructions: Orthostatic hypotension. Assess gait with walker. Educate on standing slowly and crossing legs etc. Also assess if home home PT will benefit please Attending Provider on DC: Iam Villasenor DO Discharging Provider: Iam Villasenor DO DS: Diagnosis Problem List Completed Was Problem List Reviewed/Reconciled?: Yes Hospital Course Hospital Course Hospital course: Summary: Citlalli Brenner 75F pmhx significant for HTN, IDDM2 (not taking insulin), HLD, hypothyroidism s/p remote thyroidectomy 2/2 Graves' disease, depression, asthma and dementia who presents to [facility] ED 08/13 with syncope, admitted for syncope likely 2/2 vasovagal response and orthostatic hypotension. Patient presented with unwitnessed syncopal episode at PCP office for unknown duration, denies prolonged confusion. Preceding symptoms include severe nausea vomiting, diaphoresis and feeling as if she is about to pass out. Previously had syncope 2/2 beta blockers in 2021 and patient was noted to be currently on beta ellen, does follow closely outpatient with Dr. Donovan. On admission orthostatics positive and fluids were given with resolution of orthostatics on day of discharge. Teleneurology and cardiology were consulted, and both neurology and cardiac workup negative. Syncope likely 2/2 orthostatics with some vasovagal component given prceeding symptoms 2/2 L back/flank pain. Patient presented to PCP office for L back and L flank pain and imaging largely negative as above as a cause of back pain. Patient states pain is intemittent, sometimes occurs at rest and stabbing. Unknown etiology at this time with leading ddx referral of back pain and recommend further outpatient workup. Of note, during walk test with PT, patient desaturated to 88%, qualifying for acute hypoxic respiratory failure on presumed underlying COPD given patient's previous heavy smoking history. Furthermore, patient was also noted to have stenosis 80% of L common iliac artery, cardiology consulted and recommended outpatient management. Also, patient was recently diagnosed with UTI and successfully treated outpatient with ciprofloxacin, admission UA negative and 08/03 cultures grew ESBL. On discharge, patient is hemodynamically stable, vitals and labs reviewed to be stable and patient is ready to go home with home O2. Imaging: EKG shows bradycardia rate 57 QTc 464 with first-degree AV block. Head CT negative, CXR negative. 08/03 CTAP shows suspicious for 80% stenosis of left common iliac artery. Arterial duplex scan showed SHAWN 1.1 in left Discharge Recommendations: - Please take all medications as prescribed - START amlodipine 10 mg once daily and Losartan 25 mg daily - STOP HCTZ-Losartan - STOP carvedilol due to your fainting episode. - START wearing compression socks and rise slowly from lying down or sitting position - START home O2 as needed - Continue all home medications except as above - Please follow up with your PCP within one week of discharge and to ask for pulmonary function test and aerospace medicine physician as you likely have COPD - Please follow up with Dr. Gomes for managemet of your stenosis - If your symptoms worsen, please seek immediate medical attention and return to your nearest emergency room. - If you do not have a PCP, you may follow up at the [facility] at [address] [place] [address] [address], [facility] [address], Hospital Diagnoses: #Syncope, multifactorial, resolved #Vasovagal syncope #Orthostatic hypotension #Acute hypoxic respiratory failure #Presumed COPD #Hypertensive urgency #Hx of HTN # L flank pain Possibly secondary to nephrolithiasis #Chronic LBP #L Common iliac artery stenosis #IDDM2 #Hypothyroidism s/p thyroidectomy during youth 2/2 Graves disease #Bronchial asthma #Urinary retention #Hx ESBL UTI #Depression #Dementia Plan of care discussed with attending Dr. Villasenor, and PGY-2 Dr. Levin. Sintia Arnett, DO Internal Medicine, PGY-1 Time Spent with Patient Time attestation: Total time spent providing and/or coordinating discharge services: Time spent: Greater than 30 minutes Exam Vital Signs Temp Pulse Resp BP Pulse Ox O2 Del Method O2 Flow Rate 97.4 F 71 11 L 161/79 H 91 L Room Air 2 08/16/25 08:00 08/16/25 08:03 08/16/25 08:00 08/16/25 08:03 08/16/25 08:00 08/16/25 08:00 08/16/25 04:00 Narrative Exam GENERAL: AOx3, no acute distress, obese, sitting up comfortably in bed HEENT: mucous membranes moist, bilateral sclera anicteric CARDIOVASCULAR: regular rate and rhythm, S1/S2 present, no murmurs appreciated PULMONARY: clear to auscultation bilaterally, no rales/rhonchi/wheezes ABDOMINAL: soft, non-distended, no rebound/guarding, bowel sounds+, left abdomen and back mildly tender to palpation EXTREMITIES: no peripheral edema SKIN: warm and dry, intact, no rashes NEURO: CN II-XII grossly intact, no focal deficits, alert, following commands Discharge Plan Plan Patient Disposition: HOME (Self Care) Patient condition on transfer: Stable Care Plan Goals: - We have ordered home oxygen for you to use as needed. - We have increased your amlodipine to 10 mg once a day - We have stopped your HCTZ-Losartan and started Losartan 25 mg once a day - Stop your carvedilol due to your fainting episode. - Continue the rest of your home medications as before. - Follow up with Dr. Gomes within 1 week for follow up for your Iliac artery stenosis - Follow up with your primary care physician within 1 week of discharge. Ask for Pulmonary function tests. If you do not have a primary care physician, please follow up with the [facility] Residents clinic ([phone]) ? If you experience any new, worsening or persistent symptoms either call your primary doctor, or dial 911 or present to the emergency department. Prescriptions/Referrals Prescriptions/Med Rec: New amlodipine 10 mg tablet 10 mg PO QDAY 30 Days Qty: 30 2RF losartan 25 mg Tablet 25 mg PO QDAY 30 Days Qty: 30 2RF (DME) abelino.stocking,knee,reg,smal [T.E.D. Knee [id number]] Misc See Rx Instructions .Route Qty: 12 0RF Rx Instructions: As directed lidocaine 5 % adhesive patch,medicated 1 patch topical QDAY Qty: 15 0RF Rx Instructions: leave on most painful area for up to 12 hrs Continued simvastatin [Zocor] 20 MG tablet 20 mg PO QDAY Qty: 0 mirabegron [Myrbetriq] 50 MG tablet extended release 24 hr 50 mg PO QDAY Qty: 0 levothyroxine 175 mcg tablet 175 mcg PO QDAY pantoprazole 40 mg tablet,delayed release (DR/EC) 40 mg PO QDAY glipizide 5 mg tablet 5 mg PO .QD Patient Comments: TAKE 1 TABLET BY MOUTH TWICE A DAY insulin glargine [Lantus Solostar U-100 Insulin] 100 unit/mL (3 mL) insulin pen 20 unit SUBCUT HS donepezil 10 mg tablet 5 mg PO QPM memantine 10 mg tablet 10 mg PO BID albuterol sulfate 90 mcg/actuation HFA aerosol inhaler 2 puff INHALATION Q4H PRN (Reason: shortness of breath or wheezing) Patient Comments: INHALE 2 PUFFS INTO THE LUNGS EVERY 4 HOURS NEEDED Discontinued losartan-hydrochlorothiazide 100-12.5 mg Tablet 1 tab PO QDAY carvedilol 12.5 mg tablet 12.5 mg PO BID amlodipine 2.5 mg tablet 5 mg PO QDAY Referrals: Marine Astudillo NP [Primary Care Provider] Patient/Caregiver Discharge Instructions Discharge Activity: as per physical therapy Education Materials: Using Oxygen Safely, Causes of Syncope, ED Fainting, Vagal Reaction Print Language: Mauritanian Stand Alone Forms: [employer] Award Info., Patient Portal Info Letter Discharge Order Discharge Orders: Discharge (Routine); Ordered 08/16/25 Ordered By: Blaze Levin Quality Discharge Quality Measures VTE prophylaxis Attestestation Attestation I have discussed and was present for the essential components of the discharge history, physical examination, diagnosis, and discharge treatment plan with the resident. I agree with the patient's discharge care as documented by the resident and amended herein by me. Garett Villasenor DO. The patient understood all discharge instructions, all questions were answered satisfactorily. The patient was instructed to return to the Emergency Depar tment is symptoms worsened or persisted. Patient was stable, afebrile, tolerating p.o. intake and ambulatory at time of discharge home with home O2. See discharge note above for additional details regarding hospital stay Although this document has been carefully reviewed, there may still be some phonetic and other typographical errors. These errors are purely grammatical due to imperfections in the software program and should not be construed in any way to compromise the substance of the patient's medical care during this visit.
--- NOTE | 2025-08-16 12:03 | PC.SS ---
OXYGEN Pt is discharged in a chronic stable state and has been treated optimally and has other respiratory needs. ?Oxygen has been ordered due to Acute Chronic Hypoxic Respiratory Failure. Portable O2 Patient would benefit from portable O2 due to improving mobility and functionality of daily living.
--- NOTE | 2025-08-16 12:18 | PC.SS ---
Addendum entered by Vanesa Blount 08/16/25 13:40: 12:59 SS has faxed DME order for home O2 to [facility] Original Note: SS has sent patient's demographic information to [facility] (unablet locate them on [facility]). Nursing O2 notes are still pending. Bedside nurse is aware.
--- NOTE | 2025-08-16 12:35 | PC.NURSE ---
ROOM AIR SPO2 92% AT REST. ROOM AIR SPO2 88% WITH EXERCISE. RECOVERY TESTS: SP02 95% ON 2L WITH EXERCISE.
--- NOTE | 2025-08-16 13:56 | PC.PT ---
PT eval only. Patient is I with transfers and ambulation with RW.
== END 2025-08-16 16:20 | disposition home or self-care (01) ==
LOC: SERX 17:05 → S2NX 08-15 09:45 → SERHOLD 08-17 07:03 → S2NX 08-17 07:03
PROVIDERS: Admitting Provider Student in an Organized Health Care Education/Training Program; Emergency Provider Family Medicine; PCP Nurse Practitioner Family; Visit Provider Student in an Organized Health Care Education/Training Program
DX: I95.1 Orthostatic hypotension (principal); J96.01 Acute respiratory failure with hypoxia; I16.0 Hypertensive urgency; R10.A2 Flank pain, left side; I10 Essential (primary) hypertension; M54.50 Low back pain, unspecified; I70.8 Atherosclerosis of other arteries; I44.0 Atrioventricular block, first degree; J45.909 Unspecified asthma, uncomplicated; F32.A Depression, unspecified; F03.93 Unspecified dementia, unspecified severity, with mood disturbance; I65.21 Occlusion and stenosis of right carotid artery; Z66 Do not resuscitate; E89.0 Postprocedural hypothyroidism; E11.9 Type 2 diabetes mellitus without complications; E78.5 Hyperlipidemia, unspecified; Z87.440 Personal history of urinary (tract) infections
CPT/HCPCS: 36415; 51701; 51702; 70450; 70496; 70498; 70551; 71045; 80053; 80061; 81001; 83036; 83735; 84100; 84439; 84484; 85025; 85610; 85730; 93005; 93306; 93925; 94762; 96361; 96365; 96366; 96372; 96374; 96375; 96376; 97162; 99285; A4314; A4649; G0378; J1171; J1644; J1953; J2060; J2405; J3475; J3490; J7030; Q9967; A9270